=== PATIENT | male | born 1960 | race Two or more races ===

== ENCOUNTER 2023-07-11 11:42 | Inpatient (IN) | payer MEDICAID, OTHER, SELFPAY ==
--- NOTE | ~2023-07-11 | MR_ITS ---
EXAMINATION: MR FOOT WITHOUT AND WITH CONTRAST, LEFT CLINICAL INFORMATION: Great toe wound, concern for osteomyelitis. COMPARISON: X-ray 07/11/2023. TECHNIQUE: MRI of the left foot was performed before and after the intravenous administration of 9 mL Gadavist on a high-field scanner. FINDINGS: Soft tissue wound along the plantar/medial aspect of the 1st distal phalanx. There is edema/cellulitis in the soft tissues. No organized fluid collection or abscess is seen. There is abnormal bright T2, low T1 signal and enhancement in the 1st distal phalanx, consistent with osteomyelitis. No significant 1st IP joint effusion. Mild 1st MTP arthritis, small effusion. No additional areas of osteomyelitis are seen. Visualized tendons intact. No appreciable tenosynovitis. Increased T2 signal in the intrinsic muscles of the foot, commonly seen with denervation changes. Visualized plantar aponeurosis is intact. MR/MR foot LT wo/w con IMPRESSION: Soft tissue wound along the plantar/medial aspect of the 1st distal phalanx. There is edema/cellulitis in the soft tissues. No abscess is seen. Abnormal findings in the 1st distal phalanx consistent with osteomyelitis. Increased T2 signal in the intrinsic muscles of the foot, commonly seen with denervation changes. The report will be called to the ordering clinician by a [facility] Physician Mechanical Integrity Specialist.
--- NOTE | ~2023-07-11 | XR_ITS ---
EXAMINATION: XR FOOT, LEFT CLINICAL INFORMATION: Great toe wound, concern for osteomyelitis COMPARISON: None available. TECHNIQUE: AP, lateral, and oblique views of the left foot. FINDINGS: There is erosion of distal phalanx with cortical destruction and some surrounding soft tissue swelling. The findings are highly suspicious for osteomyelitis. No evidence of significant arthritic disease. No other abnormality is seen. XR/XR foot LT min 3V IMPRESSION: Findings highly suspicious for osteomyelitis distal phalanx of the great toe.
--- NOTE | ~2023-07-11 | US_ITS ---
EXAMINATION: NONINVASIVE ASSESSMENT OF THE ARTERIES OF THE LEFT LOWER EXTREMITY Barry Crouhc MD CLINICAL INFORMATION: Nonhealing ulcer left great toe TECHNIQUE: Bilateral lower extremity duplex ultrasound was performed with velocity measurements and waveform analysis in the common femoral arteries, profunda femoris arteries, proximal mid and distal superficial femoral arteries, popliteal arteries and tibial vessels. This study was performed only at rest. COMPARISON: None FINDINGS: Velocities in cm/sec and phasicity as well as the presence of plaque are reported below. LEFT LEG: Mild plaque is present. Triphasic flow is noted throughout the left lower extremity. Common Femoral: 120 Profunda Femoris: 63 Proximal SFA: 94 Mid SFA: 98 Distal SFA: 66 Popliteal: 108 Posterior tibial: 167 Peroneal artery: 74 US/US arterial duplex LE LT IMPRESSION: There is no evidence of any hemodynamically significant lower extremity arterial disease by waveform or duplex Doppler criteria at rest.
--- NOTE | 2023-07-11 11:46 | ED.EXTPRO ---
HPI - Extremity Problem General Stated complaint: Sores L foot Related Data Allergies Allergy/AdvReac Type Severity Reaction Status Date / Time No Known Allergies Allergy Verified 07/11/23 11:51 Course Course Course Narrative: This is a Rapid Medical Examination (RME) performed by Alhaji Ferrell PA-C in triage. Full HPI, ROS, assessment and treatment plan per primary provider in the Main ED. 63-year-old male, Kinyarwanda speaking with history of poorly-controlled diabetes is sent to the ER from [facility] for evaluation of possible left foot osteomyelitis. He presents w/ painless left great toe ulcer for the last 10 days. On exam left foot and ankle are swollen w/ large left great toe ulcer on the plantar aspect, foul smelling without obvious drainage. Plan: XR foot, labs, cultures Discharge Plan Discharge Print Language: Kinyarwanda
[2023-07-11 11:48] VITALS: BP 163/83; PULSE 94; RESP 18; TEMP 36.6; O2SAT 97; BMI 31.6
[2023-07-11 12:14] LABS: MANUAL DIFF FLAG NO
[2023-07-11 12:19] LABS: Basophils Absolute Auto 0.1 X10*3/uL (0.0-0.2); Basophils Percent Auto 0.5 % (0-2); Eosinophils Absolute Auto 0.1 X10*3/uL (0.0-0.4); Eosinophils Percent Auto 0.7 % (0-4); Hematocrit 37.3 % (42.0-52.0); Hemoglobin 12.6 g/dl (14.0-18.0); Imm Gran Abs Auto 0.04 X10*3/uL (0.00-0.03); Imm Gran Pct Auto 0.4 % (0.0-0.4); Lymphocytes Absolute Auto 1.5 X10*3/uL (1.2-4.9); Lymphocytes Percent Auto 16.3 % (20-40); Mean Corpuscular HGB Conc 33.8 g/dl (31.0-36.0); Mean Corpuscular Hemoglobin 29.8 pg (27.0-33.0); Mean Corpuscular Volume 88.2 fL (80.0-98.0); Mean Platelet Volume 9.8 fL (9.4-12.4); Monocytes Absolute Auto 0.7 X10*3/uL (0.1-1.2); Monocytes Percent Auto 7.2 % (2-11); Neutrophils Absolute Auto 6.9 x10*3/uL (2.0-8.3); Neutrophils Percent Auto 74.9 % (45-73); Platelet Count 300 X10*3/uL (160-400); Red Blood Count 4.23 X10*6/uL (4.60-5.80); Red Cell Distribution Width 11.9 % (11.0-16.0); White Blood Count 9.2 X10*3/uL (4.8-10.8)
[2023-07-11 12:37] LABS: Lactic Acid 2.1 mmol/L (0.5-2.0)
[2023-07-11 12:38] LABS: B Type Natriuretic Peptide 63 pg/mL (<100)
[2023-07-11 12:40] LABS: Alanine Aminotransferase 14 U/L (0-40); Albumin Level 4.4 g/dL (3.5-5.0); Alkaline Phosphatase 99 U/L (39-117); Anion Gap 22 (12-20); Aspartate Amino Transferase 16 U/L (5-37); Bilirubin Direct 0.2 mg/dL (0.0-0.5); Bilirubin Total 0.6 mg/dL (0.0-1.0); Blood Urea Nitrogen 21 mg/dL (9-16); C Reactive Protein 4.19 mg/dL (< or = 0.50); Calcium 9.8 mg/dL (8.4-10.2); Carbon Dioxide 19 mmol/L (22-29); Chloride 102 mmol/L (96-108); Creatinine Clr Calc Pharmacy 88.7; Estimated Glomerular Filt Rate > 60; Glucose Random 324 mg/dL (60-115); Magnesium 1.8 mg/dL (1.6-2.6); Potassium 4.6 mmol/L (3.3-5.1); Sodium 138 mmol/L (135-145); Total Protein 7.9 g/dL (6.5-8.0)
[2023-07-11 13:00] LABS: Erythrocyte Sedimentation Rate 51 MM/HR (0-15)
--- NOTE | 2023-07-11 13:33 | ED.WOUNDLAC ---
HPI - Wound/Laceration General Chief Complaint: Wound/Laceration Stated Complaint: Sores L foot Time Seen by Provider: 07/11/23 13:29 Source: patient Mode of arrival: ambulatory Limitations: no limitations History of Present Illness HPI narrative: This is 62 years old diabetic patient sent from evaluation from the clinic because diabetic foot infection in the left, especially in the left great toe, he denies any fever chills vomiting. Symptom been ongoing for about 9 days Onset (ago): day(s) (9) Extremity Location: left: foot Place: home Related Data Allergies Allergy/AdvReac Type Severity Reaction Status Date / Time No Known Allergies Allergy Verified 07/11/23 11:51 Review of Systems ENT: Reports system reviewed and no additional complaints, except as documented Cardiovascular: Cardiovascular: Reports no additional cardiovascular complaints Respiratory: Respiratory: Reports no additional respiratory complaints [facility] Past Medical History [facility] Narrative: diabetes Social History Social History Alcohol intake: never Smoked in Last 30 Days: No Use of substances other than those prescribed or required for medical reasons: No Advance Directives: No Advance Directives Information Provided: Yes Physical Exam Vital Signs: Vital Signs: Last Vital Signs Temp 98 F 07/11/23 11:48 Pulse 94 07/11/23 11:48 Resp 18 07/11/23 11:48 BP 163/83 H 07/11/23 11:48 Pulse Ox 97 07/11/23 11:48 BMI result Body Mass Index 31.6 Const: General: cooperative and comfortable Nutritional Appearance: well nourished Orientation/consciousness: patient oriented x3 Limitations: no limitations HEENT: Head: Yes normal to inspection General nose exam: Normal external nose present Face and sinus: Yes normal facial exam Teeth and gingiva: dentition normal Throat: Yes posterior oropharynx normal Neck: Neck: Yes normal visual inspection Chest: Chest palpation & inspection: normal inspection of the chest Resp: Effort & Inspection: normal respiratory effort and able to speak in complete sentences Auscultation: clear to auscultation bilaterally Cardio: Jugular venous distension: no JVD Rate: regular rate Rhythm: regular rhythm GI: Inspection: Yes normal to inspection Palpation (GI): Soft to palpation, not firm, nontender and no guarding Auscultation: normal bowel sounds Neuro: General: patient oriented x3 Extrem: Other: Examination left great toe showed necrotic area in the tip of the toe see pictures Course Reevaluation(s) Reevaluation #1: Spoke with the son as well Time: 14:01 Medical Decision Making Medical Decision Making [facility] Narrative: Patient presented with diabetic foot infection we gave IV antibiotic will do x-ray labs and reassess Differential Diagnosis Differential Diagnoses: The differential diagnosis associated with the presentation includes Cellulitis/osteomyelitis Admission/Observation Consideration of admission/observation: Escalation of care including admission/observation considered Consult Healthcare Provider Management of the patient was discussed with: Hospitalist Lab Data [facility] Lab Attestation statement: I reviewed the patient's lab results. 07/11/23 12:06 07/11/23 12:06 Labs: Lab Results 07/11/23 Range/Units 12:06 WBC 9.2 (4.8-10.8) X10*3/uL RBC 4.23 L (4.60-5.80) X10*6/uL Hgb 12.6 L (14.0-18.0) g/dl Hct 37.3 L (42.0-52.0) % MCV 88.2 (80.0-98.0) fL MCH 29.8 (27.0-33.0) pg MCHC 33.8 (31.0-36.0) g/dl RDW 11.9 (11.0-16.0) % Plt Count 300 (160-400) X10*3/uL MPV 9.8 (9.4-12.4) fL Immature Gran % (Auto) 0.4 (0.0-0.4) % Neut % (Auto) 74.9 H (45-73) % Lymph % (Auto) 16.3 L (20-40) % [place] % (Auto) 7.2 (2-11) % Eos % (Auto) 0.7 (0-4) % Baso % (Auto) 0.5 (0-2) % Lymph # (Auto) 1.5 (1.2-4.9) X10*3/uL [place] # (Auto) 0.7 (0.1-1.2) X10*3/uL Eos # (Auto) 0.1 (0.0-0.4) X10*3/uL Baso # (Auto) 0.1 (0.0-0.2) X10*3/uL Abs Immat Gran (auto) 0.04 H (0.00-0.03) X10*3/uL Absolute Neuts (auto) 6.9 (2.0-8.3) x10*3/uL Absolute Nucleated RBC 0.000 (0.0-0.012) X10*3/uL Nucleated RBC % (auto) 0.0 (0.0-0.2) /100WBC ESR 51 H (0-15) MM/HR Sodium 138 (135-145) mmol/L Potassium 4.6 (3.3-5.1) mmol/L Chloride 102 (96-108) mmol/L Carbon Dioxide 19 L (22-29) mmol/L Anion Gap 22 H (12-20) BUN 21 H (9-16) mg/dL Creatinine 0.89 (0.5-1.4) mg/dL Estim Creat Clear Calc 88.7 Estimated GFR > 60 Random Glucose 324 H (60-115) mg/dL Lactic Acid 2.1 H* (0.5-2.0) mmol/L Calcium 9.8 (8.4-10.2) mg/dL Magnesium 1.8 (1.6-2.6) mg/dL Total Bilirubin 0.6 (0.0-1.0) mg/dL Direct Bilirubin 0.2 (0.0-0.5) mg/dL AST 16 (5-37) U/L ALT 14 (0-40) U/L Alkaline Phosphatase 99 (39-117) U/L C-Reactive Protein 4.19 H (< or = 0.50) mg/dL B-Natriuretic Peptide 63 (<100) pg/mL Total Protein 7.9 (6.5-8.0) g/dL Albumin 4.4 (3.5-5.0) g/dL Independent Interpretation I performed an independent interpretation of an: Plain X-Ray Interpretation: I personally reviewed the x-ray interpreted as a possible osteo Radiology Impression Discussion of test interpretation with radiology: I have reviewed the radiologist's reading. Radiologist Impression: CLINICAL INFORMATION: Great toe wound, concern for osteomyelitis COMPARISON: None available. TECHNIQUE: AP, lateral, and oblique views of the left foot. FINDINGS: There is erosion of distal phalanx with cortical destruction and some surrounding soft tissue swelling. The findings are highly suspicious for osteomyelitis. No evidence of significant arthritic disease. No other abnormality is seen. XR/XR foot LT min 3V IMPRESSION: Findings highly suspicious for osteomyelitis distal phalanx of the great toe. Dictated By: S Independent Historian Son Prescription Management I considered prescription management with: Antibiotic Chronic Conditions Patient?s care impacted by: Diabetes Discharge Plan Discharge Clinical Impression: Diabetic infection of left foot, Osteomyelitis of great toe of left foot Patient Disposition: Admitted As Inpatient Print Language: Chadian
[2023-07-11] MEDS: 0.9 % Sodium Chloride 1,000 ML 999 ML IVCONT (14:06)
[2023-07-11] MEDS: Piperacillin Sodium/Tazobactam 4.5 GM in 0.9 % Sodium Chloride 100 ML IV ×2 (14:06→21:14)
[2023-07-11 14:08] VITALS: BP 170/83; PULSE 93; RESP 18; TEMP 36.9; O2SAT 99
[2023-07-11 14:14] LABS: Reflex Lactate? Lactic Acid Added
--- NOTE | 2023-07-11 15:01 | P.HPHOSP_ITS ---
History of Present Illness Date of Service: 07/11/23 Attending physician on admission: [facility] Chief Complaint: L foot pain 63-year-old male with history of lip-[id number] type 2 diabetes, anxiety, chronic tremor who has poor outpatient follow-up presents to the ED accompanied by his son, del, who also assists with history, for evaluation of left foot pain and possible infection of the left great toe. The patient is reporting pain in the left foot ongoing for 2 weeks but has not been checking his feet. His sudden noticed a black discoloration and faint erythema of the left great toe 2 days ago. Denies any fevers, chills, purulent drainage. He denies any history of similar symptoms. On arrival, vital stable though hypertensive to 170/83 on admission. Denies known history of hypertension but again has poor outpatient follow-up. He has no leukocytosis. There is a normocytic anemia with H/H 12.6/37.3%. Creatinine 0.89, BUN 21. Electrolyte levels normal except for CO2 19. Glucose 324 with A1c of 11.3%. Lactic acid 2.1. Hepatic function within normal limits. CRP 4.19, ESR 51. Urinalysis unremarkable. X-ray of the right foot with findings highly suspicious for osteomyelitis of the distal phalanx of the great toe. In the ED, given 1 L IV NS and IV Zosyn. Patient will be admitted for further management of osteomyelitis of the left great toe. Denies any history of cigarette smoking. No alcohol or drug use. Review of Systems 2 Review of Systems: General: No fevers, malaise, unintentional weight loss HEENT: No blurred vision, diplopia. No sore throat, nasal congestion, rhinorrhea, sinus pain, ear pain Cardiovascular: No chest pain, palpitations, or leg edema Respiratory: No shortness of breath, wheezing, cough GI: No abdominal pain, nausea, vomiting, diarrhea, constipation, melena, hematochezia : No dysuria, hematuria, increased urinary frequency, decreased urinary output MSK: No myalgia. +Left foot pain Neuro: No headaches, weakness, paresthesias Skin: No rashes. +nonhealing ulcer L great toe [facility] Medical History (Updated 07/11/23 @ 15:42 by RAQUEL Norman) Anxiety HTN (hypertension) Type 2 diabetes mellitus Social History Alcohol intake: never Smoked in Last 30 Days: No Use of substances other than those prescribed or required for medical reasons: No Advance Directives: No Advance Directives Information Provided: Yes Meds Allergies Allergy/AdvReac Type Severity Reaction Status Date / Time No Known Allergies Allergy Verified 07/11/23 11:51 Active Medications: Current Medications Acetaminophen (Acetaminophen 325 Mg Tablet) 650 mg PO Q6H PRN PRN Reason: Fever Acetaminophen (Acetaminophen 325 Mg Tablet) 650 mg PO Q6H PRN PRN Reason: Pain, Mild (Pain Scale 1-3) Acetaminophen (Acetaminophen 325 Mg Tablet) 650 mg PO Q6H PRN PRN Reason: Headache Calcium Carbonate (Calcium Carbonate 750 Mg Tab.Chew) 750 mg PO Q6H PRN PRN Reason: Heartburn Heparin Sodium (Porcine) (Heparin Sodium,Porcine 5,000 Unit/Ml Vial) 5,000 unit SUBCUT Q12H MARLO Vancomycin HCl (Vancomycin/Ns) 2,000 mg in 500 mls @ 250 mls/hr IV ONCE ONE Stop: 07/11/23 15:38 Piperacillin Sod/Tazobactam (Sod 4.5 gm/ Sodium Chloride) 100 mls @ 200 mls/hr IV Q6H MARLO Magnesium Hydroxide (Milk Of Magnesia 30 Ml Oral.Susp) 30 ml PO DAILY PRN PRN Reason: Constipation Melatonin (Melatonin 3 Mg Tablet) 6 mg PO BEDTIME PRN PRN Reason: Insomnia Pharmacy Consult (Consult Rx Vancomycin Dosing) 1 each MISCELLANE DAILY PRN PRN Reason: Consult order Polyethylene Glycol (Polyethylene Glycol 3350 17 Gm Powd.Pack) 17 gm PO DAILY PRN PRN Reason: Constipation Sodium Chloride (0.9 % Sodium Chloride Flush 3 Ml Syringe) 3 ml IVFLUSH QSHIFT MARLO Physical Exam 2 Vital Signs and Narrative: Vital Signs: Last Vital Signs Temp 98.4 F 07/11/23 14:08 Pulse 93 07/11/23 14:08 Resp 18 07/11/23 14:08 BP 170/83 H 07/11/23 14:08 Pulse Ox 99 07/11/23 14:08 O2 Del Method Room Air 07/11/23 14:08 BMI result Body Mass Index 31.6 Constitutional - Awake and Alert, No apparent distress Eyes - PERRLA, EOMI Cardiovascular - S1S2, RRR, 2+ ble edema Respiratory - Normal lung expansion, Normal respiratory effort, No respiratory distress, CTA bilaterally Gastrointestinal - NT / ND; +BS; No rebound or guarding Extremities - no calf tenderness bilaterally, no swelling Skin - Warm/Dry. Nonhealing stage 2 ulcer plantar surface L great toe with faint erythema of the L great toe Neurological - Alert & oriented x3, bilateral ahnd tremor Psychological - Appropriate affect Results Labs 07/11/23 12:06 07/11/23 12:06 Labs: Laboratory Results - last 24 hr 07/11/23 12:06 MCV 88.2 MCH 29.8 MCHC 33.8 RDW 11.9 Plt Count 300 MPV 9.8 Immature Gran % (Auto) 0.4 Neut % (Auto) 74.9 H Lymph % (Auto) 16.3 L [place] % (Auto) 7.2 Eos % (Auto) 0.7 Baso % (Auto) 0.5 Lymph # (Auto) 1.5 [place] # (Auto) 0.7 Eos # (Auto) 0.1 Baso # (Auto) 0.1 Abs Immat Gran (auto) 0.04 H Absolute Neuts (auto) 6.9 Absolute Nucleated RBC 0.000 Nucleated RBC % (auto) 0.0 ESR 51 H Anion Gap 22 H Estim Creat Clear Calc 88.7 Estimated GFR > 60 Random Glucose 324 H Lactic Acid 2.1 H* Calcium 9.8 Magnesium 1.8 Total Bilirubin 0.6 Direct Bilirubin 0.2 AST 16 ALT 14 Alkaline Phosphatase 99 C-Reactive Protein 4.19 H B-Natriuretic Peptide 63 Total Protein 7.9 Albumin 4.4 Imaging Radiologist's Impressions: Impressions Foot X-Ray 07/11/23 12:12 IMPRESSION: Findings highly suspicious for osteomyelitis distal phalanx of the great toe. Assessment and Plan (1) Osteomyelitis of great toe of left foot: Status: Acute (2) Diabetic infection of left foot: Status: Acute (3) Uncontrolled type 2 diabetes mellitus with hyperglycemia: Status: Acute Plan 63-year-old male with history of jei-[id number] type 2 diabetes, anxiety, chronic tremor who has poor outpatient follow-up admitted for further management of acute osteomyelitis of the left great toe # acute osteomyelitis of the left great toe with nonhealing stage II ulcer of the left great toe related to uncontrolled type 2 diabetes -x-ray of the left foot shows high suspicion for osteomyelitis. ESR 50, CRP 4.19. No leukocytosis, fevers, no sepsis -MRI ordered for further evaluation of osteomyelitis -arterial Doppler left lower extremity ordered -IV vancomycin and Zosyn (initiated 07/10) -refuge worker consult -ID consult -will likely need pt eval -follow CBC, cultures # uncontrolled ake-ncbxztp-cshbsxjqv type 2 diabetes with hyperglycemia -hemoglobin A1c 11.3% -initiate 18 units Lantus nightly -POC glucose, diabetic diet, Admelog on sliding scale # newly diagnosed hypertension -add amlodipine 5 mg daily #Tremor, shuffling gait -concern for parkinsons, outpt follow up with pcp/neuro DVT prophylaxis- heparin full code Patient requires inpatient stay at least 2 midnights for management of osteo myelitis with nonhealing stage II ulcer of the left great toe with infection requiring IV antibiotics, close monitoring of blood cultures as patient will likely require long-term antibiotics, as well as expert consultation Quality Stroke Does the patient have a stroke diagnosis?: No VTE Prior VTE?: No VTE Risk Level:: Medical - moderate - high VTE Device Contraindication: Treatment Not Indicated VTE Drug Contraindication: N/A - Med Ordered
[2023-07-11] MEDS: vancomycin/NS 2,000 MG/500 ML PLAST..BAG 250 MG IV (15:08)
[2023-07-11 15:12] LABS: Appearance Urine Clear; Color Urine Yellow; Glucose Urine UA >=1000 mg/dL (Negative); Leukocyte Esterase Urine Negative (Negative); Nitrite Urine Negative (Negative); PH 5.5 (5.0-9.0); Specific Gravity - Urine 1.025 (1.005-1.025); UMIC TRIGGER UACC YES; Urine Blood Negative (Negative); Urine Ketones 15 mg/dL (Negative); Urine Protein 100 (2+) mg/dL (Neg-Trace)
[2023-07-11 15:14] LABS: Bacteria Urine None Seen (None Seen); Hyaline Casts Urine 0-2 /LPF (0-2); RBC Urine 0-2 /HPF (0-2); Squamous Epithelial Cell Urine 0-2 /HPF (0-2); WBC Urine 0-5 /HPF (0-5)
[2023-07-11 15:24] LABS: Estimated Average Glucose 278 mg/dL; Hemoglobin A1c % 11.3 % (<6.0)
--- NOTE | 2023-07-11 16:00 | PHA.PROG ---
Admission Date/Time: July 11, 2023 15:01 Indication: bone and joint Weight in k.904 kg Adjusted body weight in Kg: Williamson body weight in Kg: Obesity Dosing Indication % IBW: Serum Creatinine - Last 168 Hours 07/11/23 12:06 Creatinine 0.89 Estimated CrCl and GFR - Last 168 Hours 07/11/23 12:06 Estim Creat Clear Calc 88.7 Estimated GFR > 60 Vancomycin Loading Dose: 2000mg x 1 Current Vancomycin Dosing Regimen: 1000mg Q12H Vancomycin Monitoring using AUC goal of 400 - 600 range with trough as surrogate marker: 484 mg/L Date and Time for next Vancomycin Level to be drawn: 07/11 @1300 Pharmacist Comments on Vancomycin Plan: Due to timing of medication level will be drawn after two doses; predicted trough of 15.4mg/L Vancomycin dosing will take advantage of [employer] as a clinical decision support tool that uses Bayesian modeling to calculate individual patient's pharmacokinetic parameters and forecast the patient's drug concentration time course with the target goal AUC 24 range of 400 - 600 mg/L/hr.
[2023-07-11 16:44] LABS: ~Lactic Acid-LAB USE ONLY 1.7 mmol/L (0.5-2.0)
[2023-07-11 17:50] VITALS: PULSE 79; RESP 179; TEMP 37.1; O2SAT 97
[2023-07-11 17:55] LABS: Glucose, Whole Blood 228 mg/dL (60-115)
[2023-07-11] MEDS: Insulin Lispro 100 UNIT/ML 3 ML VIAL SUBCUT ×2 (18:00→21:15)
--- NOTE | 2023-07-11 18:14 | PHA.MEDREC ---
Pharmacy Consult ? Medication Reconciliation Pharmacy has completed the medication reconciliation. Spoke to patient via industrial truck operator and confirmed medication list. Patient was taking trulicity but hasn't had it in a month.
[2023-07-11 19:50] VITALS: BP 151/76; PULSE 82; RESP 15; TEMP 37.1; O2SAT 98
[2023-07-11 20:14] VITALS: BMI 31.0
[2023-07-11 20:16] VITALS: BP 168/83; PULSE 83; RESP 16; TEMP 36.2; O2SAT 99
[2023-07-11 20:22] LABS: Glucose, Whole Blood 246 mg/dL (60-115)
[2023-07-11] MEDS: Insulin Glargine,Hum.rec.anlog 100 UNIT/ML 10 ML VIAL 18 UNIT SUBCUT (21:14)
[2023-07-11] MEDS: 0.9 % Sodium Chloride Flush 3 ML SYRINGE IVFLUSH (21:15)
[2023-07-12 02:58] VITALS: BP 166/81; PULSE 73; RESP 16; TEMP 36.4; O2SAT 98
[2023-07-12] MEDS: Piperacillin Sodium/Tazobactam 4.5 GM in 0.9 % Sodium Chloride 100 ML IV ×4 (02:59→20:39)
[2023-07-12] MEDS: Heparin Sodium,Porcine 5,000 UNIT/ML VIAL 5000 UNIT SUBCUT ×2 (02:59→14:26)
[2023-07-12] MEDS: vancomycin HCL 1,000 MG in 0.9 % Sodium Chloride 250 ML 270 MG IV ×2 (03:45→14:24)
[2023-07-12 05:45] LABS: MANUAL DIFF FLAG NO
[2023-07-12 05:53] LABS: Basophils Percent Auto 0.6 % (0-2); Eosinophils Absolute Auto 0.2 X10*3/uL (0.0-0.4); Eosinophils Percent Auto 2.4 % (0-4); Hematocrit 33.2 % (42.0-52.0); Hemoglobin 11.4 g/dl (14.0-18.0); Imm Gran Abs Auto 0.02 X10*3/uL (0.00-0.03); Imm Gran Pct Auto 0.3 % (0.0-0.4); Lymphocytes Absolute Auto 1.9 X10*3/uL (1.2-4.9); Lymphocytes Percent Auto 27.7 % (20-40); Mean Corpuscular HGB Conc 34.3 g/dl (31.0-36.0); Mean Corpuscular Volume 87.4 fL (80.0-98.0); Mean Platelet Volume 9.5 fL (9.4-12.4); Monocytes Absolute Auto 0.6 X10*3/uL (0.1-1.2); Monocytes Percent Auto 8.2 % (2-11); Neutrophils Absolute Auto 4.1 x10*3/uL (2.0-8.3); Neutrophils Percent Auto 60.8 % (45-73); Platelet Count 291 X10*3/uL (160-400); White Blood Count 6.7 X10*3/uL (4.8-10.8)
[2023-07-12 06:04] LABS: Anion Gap 15 (12-20); Blood Urea Nitrogen 12 mg/dL (9-16); Calcium 9.2 mg/dL (8.4-10.2); Carbon Dioxide 24 mmol/L (22-29); Chloride 107 mmol/L (96-108); Creatinine Clr Calc Pharmacy 104.2; Estimated Glomerular Filt Rate > 60; Glucose Random 149 mg/dL (60-115); Sodium 142 mmol/L (135-145)
[2023-07-12 07:29] LABS: Glucose, Whole Blood 157 mg/dL (60-115)
[2023-07-12 07:31] VITALS: BP 155/77; PULSE 65; RESP 12; TEMP 36.6
[2023-07-12] MEDS: Multivitamin TABLET 1 TAB PO (08:05)
[2023-07-12] MEDS: amLODIPine Besylate 5 MG TABLET PO (08:05)
[2023-07-12] MEDS: Insulin Lispro 100 UNIT/ML 3 ML VIAL SUBCUT ×4 (08:06→20:43)
--- NOTE | 2023-07-12 09:40 | MHC.CM.PN ---
pt lives with son,is independent had no servies has a ride home will not need servies when dcd
[2023-07-12 11:36] LABS: Glucose, Whole Blood 223 mg/dL (60-115)
--- NOTE | 2023-07-12 13:22 | P.PNIM_ITS ---
Subjective Subjective Date of Service: 07/12/23 Interval History: left toe ulcer Review of Systems foot seems similar no erythema or fevers Physical Exam 2 Vital Signs: Vital Signs: Last Vital Signs Temp 98 F 07/12/23 07:31 Pulse 65 07/12/23 07:31 Resp 12 07/12/23 07:31 BP 155/77 H 07/12/23 07:31 Pulse Ox 98 07/12/23 02:58 O2 Del Method Room Air 07/11/23 20:16 BMI result Body Mass Index 31.0 Appearance: Alert.? Oriented X3.? cvs: [id number], [id number] . res: clear to auscultation ,no rhonchii or wheezing abd: no rebound or guarding ,nt, bs present. ext pulses present , no cyanosis. ulcer plantar surface L great toe with faint erythema of the L great toe neuro: axo3 , nonfocal. Objective Data Active Medications Acetaminophen (Acetaminophen 325 Mg Tablet) 650 mg PO Q6H PRN PRN Reason: Fever Amlodipine Besylate (Amlodipine Besylate 5 Mg Tablet) 5 mg PO DAILY [facility]; Protocol Last Admin: 07/12/23 08:05 Dose: 5 mg Documented By: MILTON Calcium Carbonate (Calcium Carbonate 750 Mg Tab.Chew) 750 mg PO Q6H PRN PRN Reason: Heartburn Glucose (Glucose Gel 15 Gm Gel..Gram.) 15 gm PO Q15M PRN; Protocol PRN Reason: per Hypoglycemia Standing Ord. Heparin Sodium (Porcine) (Heparin Sodium,Porcine 5,000 Unit/Ml Vial) 5,000 unit SUBCUT Q12H [facility] Last Admin: 07/12/23 02:59 Dose: 5,000 unit Documented By: JACQUELINE Piperacillin Sod/Tazobactam (Sod 4.5 gm/ Sodium Chloride) 100 mls @ 200 mls/hr IV Q6H [facility] Last Infusion: 07/12/23 08:40 Dose: Infused Documented By: MILTON Dextrose (D10) 250 mls @ 750 mls/hr IV Q15M PRN; Protocol PRN Reason: per Hypoglycemia Standing Ord. Vancomycin HCl 1,000 mg/ (Sodium Chloride) 270 mls @ 270 mls/hr IV Q12H [facility] Last Infusion: 07/12/23 05:00 Dose: Infused Documented By: JACQUELINE Insulin Glargine (Insulin Glargine,Hum.Rec.Anlog 100 Unit/Ml 10 Ml Vial) 18 unit SUBCUT BEDTIME [facility] Last Admin: 07/11/23 21:14 Dose: 18 unit Documented By: JACQUELINE Insulin Human Lispro (Insulin Lispro 100 Unit/Ml 3 Ml Vial) 0 unit SUBCUT QIDACHS [facility]; Protocol Last Admin: 07/12/23 11:58 Dose: 4 unit Documented By: MILTON Magnesium Hydroxide (Milk Of Magnesia 30 Ml Oral.Susp) 30 ml PO DAILY PRN PRN Reason: Constipation Melatonin (Melatonin 3 Mg Tablet) 6 mg PO BEDTIME PRN PRN Reason: Insomnia Multivitamins/Vitamin C (Multivitamin Tablet) 1 tab PO DAILY [facility] Last Admin: 07/12/23 08:05 Dose: 1 tab Documented By: MILTON Pharmacy Consult (Consult Rx Vancomycin Dosing) 1 each MISCELLANE DAILY PRN PRN Reason: Consult order Polyethylene Glycol (Polyethylene Glycol 3350 17 Gm Powd.Pack) 17 gm PO DAILY PRN PRN Reason: Constipation Sodium Chloride (0.9 % Sodium Chloride Flush 3 Ml Syringe) 3 ml IVFLUSH QSHIFT [facility] Last Admin: 07/12/23 07:26 Dose: Not Given Documented By: MILTON Non-Admin Reason: Previously Administered Labs 07/12/23 05:30 07/12/23 05:30 Labs: Laboratory Results - last 24 hr 07/11/23 07/11/23 07/11/23 12:06 15:03 16:30 MCV MCH MCHC RDW Plt Count MPV Immature Gran % (Auto) Neut % (Auto) Lymph % (Auto) Oliver % (Auto) Eos % (Auto) Baso % (Auto) Lymph # (Auto) Oliver # (Auto) Eos # (Auto) Baso # (Auto) Abs Immat Gran (auto) Absolute Neuts (auto) Absolute Nucleated RBC Nucleated RBC % (auto) Anion Gap Estim Creat Clear Calc Estimated GFR POC Glucose Random Glucose Estimat Average Glucose 278 Hemoglobin A1c % 11.3 H Lactic Acid F/U @ 2Hr 1.7 Calcium Urine Color Yellow Urine Appearance Clear Urine pH 5.5 Ur Specific Baker 1.025 Urine Protein 100 (2+) H Urine Glucose (UA) >=1000 H Urine Ketones 15 Urine Blood Negative Urine Nitrite Negative Ur Leukocyte Esterase Negative Urine RBC 0-2 Urine WBC 0-5 Ur Squamous Epith Cells 0-2 Urine Bacteria None Seen Hyaline Casts 0-2 07/11/23 07/11/23 07/12/23 17:48 20:18 05:30 MCV 87.4 MCH 30.0 MCHC 34.3 RDW 12.0 Plt Count 291 MPV 9.5 Immature Gran % (Auto) 0.3 Neut % (Auto) 60.8 Lymph % (Auto) 27.7 Oliver % (Auto) 8.2 Eos % (Auto) 2.4 Baso % (Auto) 0.6 Lymph # (Auto) 1.9 Oliver # (Auto) 0.6 Eos # (Auto) 0.2 Baso # (Auto) 0.0 Abs Immat Gran (auto) 0.02 Absolute Neuts (auto) 4.1 Absolute Nucleated RBC 0.000 Nucleated RBC % (auto) 0.0 Anion Gap 15 Estim Creat Clear Calc 104.2 Estimated GFR > 60 POC Glucose 228 H 246 H Random Glucose 149 H Estimat Average Glucose Hemoglobin A1c % Lactic Acid F/U @ 2Hr Calcium 9.2 D Urine Color Urine Appearance Urine pH Ur Specific Baker Urine Protein Urine Glucose (UA) Urine Ketones Urine Blood Urine Nitrite Ur Leukocyte Esterase Urine RBC Urine WBC Ur Squamous Epith Cells Urine Bacteria Hyaline Casts 07/12/23 07/12/23 07:20 11:29 MCV MCH MCHC RDW Plt Count MPV Immature Gran % (Auto) Neut % (Auto) Lymph % (Auto) Oliver % (Auto) Eos % (Auto) Baso % (Auto) Lymph # (Auto) Oliver # (Auto) Eos # (Auto) Baso # (Auto) Abs Immat Gran (auto) Absolute Neuts (auto) Absolute Nucleated RBC Nucleated RBC % (auto) Anion Gap Estim Creat Clear Calc Estimated GFR POC Glucose 157 H 223 H Random Glucose Estimat Average Glucose Hemoglobin A1c % Lactic Acid F/U @ 2Hr Calcium Urine Color Urine Appearance Urine pH Ur Specific Baker Urine Protein Urine Glucose (UA) Urine Ketones Urine Blood Urine Nitrite Ur Leukocyte Esterase Urine RBC Urine WBC Ur Squamous Epith Cells Urine Bacteria Hyaline Casts Assessment and Plan (1) Uncontrolled type 2 diabetes mellitus with hyperglycemia: Status: Acute (2) Osteomyelitis of great toe of left foot: Status: Acute Assessment and Plan: 63-year-old male with history of [id number] type 2 diabetes, anxiety, chronic tremor who has poor outpatient follow-up admitted for further management of acute osteomyelitis of the left great toe acute osteomyelitis of the left great toe with nonhealing stage II ulcer of the left great toe related to uncontrolled type 2 diabetes x-ray of the left foot shows high suspicion for osteomyelitis. ESR 50, CRP 4.19.,MRI ordered for further evaluation of osteomyelitis arterial Doppler left lower extremity -no evidence of any hemodynamically significant lower extremity arterial disease. 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,pt eval follow CBC, cultures uncontrolled [id number] type 2 diabetes with hyperglycemia-hemoglobin A1c 11.3% adjusted 20 units Lantus nightly POC glucose, diabetic diet, humalog on sliding scale hypertension continue amlodipine 5 mg daily Tremor, shuffling gait -concern for parkinsons, outpt follow up with pcp/neuro DVT prophylaxis- heparin full code Patient requires inpatient stay for management of osteo myelitis with nonhealing stage II ulcer of the left great toe with infection requiring IV antibiotics, close monitoring of blood cultures as patient will likely require long-term antibiotics, as well as expert consultation Quality Stroke Does the patient have a stroke diagnosis?: No VTE Prior VTE?: No VTE Risk Level:: Medical - moderate - high VTE Device Contraindication: Treatment Not Indicated VTE Drug Contraindication: N/A - Med Ordered
[2023-07-12] MEDS: gadobutroL 10 ML VIAL IVPUSH (13:26)
[2023-07-12 15:25] VITALS: BP 157/74; PULSE 81; RESP 15; TEMP 36; O2SAT 97
[2023-07-12 15:45] LABS: Vancomycin Random 9.9 mcg/mL (15-20)
[2023-07-12 16:12] LABS: Glucose, Whole Blood 172 mg/dL (60-115)
[2023-07-12] MEDS: vancomycin HCL 500 MG in 0.9 % Sodium Chloride 100 ML 110 MG IV (16:32)
[2023-07-12 19:23] VITALS: BP 138/81; PULSE 96; RESP 16; TEMP 36.2; O2SAT 98
[2023-07-12 20:19] LABS: Glucose, Whole Blood 169 mg/dL (60-115)
[2023-07-12] MEDS: 0.9 % Sodium Chloride Flush 3 ML SYRINGE IVFLUSH (20:40)
[2023-07-12] MEDS: Insulin Glargine,Hum.rec.anlog 100 UNIT/ML 10 ML VIAL 20 UNIT SUBCUT (20:44)
--- NOTE | 2023-07-13 00:18 | W.PM.IDCN ---
History of Present Illness Data of Consult Service Date: 07/11/23 Requesting physician: Chester Avalos Primary Care Provider: MUNA Espinoza HPI Reason for consult: OM left great toe He presents with nine days left great toe swelling and pain. He has no fever or chills. He may have been wearing tight shoes. Review of Systems Review of Systems: Yes all other systems are reviewed and are negative PMFSH Past Medical History Medical History Anxiety HTN (hypertension) Type 2 diabetes mellitus Family History Family history: reviewed and not pertinent Social History Social History Household Members: Children Housing: Apartment Do you presently have visiting nurse or other home services: No Alcohol intake: never Patient Tobacco Use Status: Never used Tobacco Smoked in Last 30 Days: No Use of substances other than those prescribed or required for medical reasons: No Currently Displaying Signs/Symptoms of Drug Intoxication Withdrawal: No Have you been hit, kicked, punched, or otherwise hurt by someone within the past year? If so, by whom?: No Do you feel safe in your current relationship?: No Current Relationship Is there a partner from a previous relationship who is making you feel unsafe now?: No Are you made to feel afraid or neglected: No Advance Directives: No Advance Directives Information Provided: Yes Do you have a plan to hurt others: No Plan Recently lost weight without trying: No How much weight loss: Not applicable Eating poorly because of decreased appetite: No Nutrition screen score: 0 Nutrition Risks: No Nutritional Risk Poor oral hygiene: No Meds Allergies Allergy/AdvReac Type Severity Reaction Status Date / Time No Known Allergies Allergy Verified 07/11/23 11:51 Active Medications: Current Medications Acetaminophen (Acetaminophen 325 Mg Tablet) 650 mg PO Q6H PRN PRN Reason: Fever Amlodipine Besylate (Amlodipine Besylate 5 Mg Tablet) 5 mg PO DAILY [facility]; Protocol Last Admin: 07/12/23 08:05 Dose: 5 mg Calcium Carbonate (Calcium Carbonate 750 Mg Tab.Chew) 750 mg PO Q6H PRN PRN Reason: Heartburn Glucose (Glucose Gel 15 Gm Gel..Gram.) 15 gm PO Q15M PRN; Protocol PRN Reason: per Hypoglycemia Standing Ord. Heparin Sodium (Porcine) (Heparin Sodium,Porcine 5,000 Unit/Ml Vial) 5,000 unit SUBCUT Q12H [facility] Last Admin: 07/12/23 14:26 Dose: 5,000 unit Piperacillin Sod/Tazobactam (Sod 4.5 gm/ Sodium Chloride) 100 mls @ 200 mls/hr IV Q6H [facility] Last Infusion: 07/12/23 21:17 Dose: Infused Dextrose (D10) 250 mls @ 750 mls/hr IV Q15M PRN; Protocol PRN Reason: per Hypoglycemia Standing Ord. Vancomycin HCl 1,500 mg/ (Sodium Chloride) 500 mls @ 333.333 mls/hr IV Q12H [facility] Insulin Glargine (Insulin Glargine,Hum.Rec.Anlog 100 Unit/Ml 10 Ml Vial) 20 unit SUBCUT BEDTIME [facility] Last Admin: 07/12/23 20:44 Dose: 20 unit Insulin Human Lispro (Insulin Lispro 100 Unit/Ml 3 Ml Vial) 0 unit SUBCUT QIDACHS [facility]; Protocol Last Admin: 07/12/23 20:43 Dose: 2 unit Magnesium Hydroxide (Milk Of Magnesia 30 Ml Oral.Susp) 30 ml PO DAILY PRN PRN Reason: Constipation Melatonin (Melatonin 3 Mg Tablet) 6 mg PO BEDTIME PRN PRN Reason: Insomnia Multivitamins/Vitamin C (Multivitamin Tablet) 1 tab PO DAILY [facility] Last Admin: 07/12/23 08:05 Dose: 1 tab Pharmacy Consult (Consult Rx Vancomycin Dosing) 1 each MISCELLANE DAILY PRN PRN Reason: Consult order Polyethylene Glycol (Polyethylene Glycol 3350 17 Gm Powd.Pack) 17 gm PO DAILY PRN PRN Reason: Constipation Sodium Chloride (0.9 % Sodium Chloride Flush 3 Ml Syringe) 3 ml IVFLUSH QSHIFT [facility] Last Admin: 07/12/23 20:40 Dose: 3 ml Home Medications ?Medication ?Instructions ?Recorded ?Confirmed ?Last Taken ?Type metformin 1,000 mg tablet 1,000 mg PO BID 07/11/23 07/11/23 07/10/23 History multivitamin 1 tab PO DAILY 07/11/23 07/11/23 07/10/23 History Physical Exam Vital Signs: Vital Signs: Last Vital Signs Temp 97.1 F 07/12/23 19:23 Pulse 96 05/14/24 19:23 Resp 16 07/12/23 19:23 BP 138/81 07/12/23 19:23 Pulse Ox 98 07/12/23 19:23 O2 Del Method Room Air 07/12/23 15:25 BMI result Body Mass Index 31.0 Const: General: cooperative HEENT: Head: Yes normal to inspection Face and sinus: Yes normal facial exam Mouth: Normal oral and palatal mucosa present Teeth and gingiva: dentition normal Eyes: General: appearance normal, both eyes and all related structures Pupils: Equal, round and reactive pupils present Resp: Effort & Inspection: normal respiratory effort Cardio: Rate: regular rate Rhythm: regular rhythm GI: Palpation (GI): Soft to palpation and nontender : General: Yes no CVA tenderness Back/Spine/Pelvis: Back: no CVA tenderness Skin: General skin exam: no rashes or lesions noted Neuro: General: moves all extremities Cranial nerves: Yes Equal, round and reactive pupils present Extrem: Other: left great toe some purulence/necrosis Psych: Appearance: grossly normal Results Labs 07/12/23 05:30 07/12/23 05:30 Labs: Short CBC 07/12/23 Range/Units 05:30 WBC 6.7 (4.8-10.8) X10*3/uL Hgb 11.4 L (14.0-18.0) g/dl Hct 33.2 L (42.0-52.0) % Plt Count 291 (160-400) X10*3/uL BMP 07/12/23 05:30 Sodium 142 Potassium 4.0 Chloride 107 Carbon Dioxide 24 BUN 12 Creatinine 0.75 Calcium 9.2 D Microbiology Microbiology Results: Microbiology 07/11/23 13:43 Blood - Venous Blood Culture - Preliminary No growth after 24 hours. 07/11/23 12:06 Blood - Venous Blood Culture - Preliminary No growth after 24 hours. Assessment and Plan (1) Osteomyelitis of great toe of left foot: Status: Acute (2) Uncontrolled type 2 diabetes mellitus with hyperglycemia: Status: Acute Plan So far no bacteremia or positive cultures. Should treat for gram negative and gram positive and anerobes There is OM Suppressive treatment with probable ertapenem and/or Vancomycin,depends on cultures so will need PICC line and weekly labs. Follow Wound Clinic.
[2023-07-13] MEDS: Piperacillin Sodium/Tazobactam 4.5 GM in 0.9 % Sodium Chloride 100 ML IV ×4 (01:52→19:07)
[2023-07-13] MEDS: vancomycin HCL 1,500 MG in 0.9 % Sodium Chloride 500 ML 333.33 MG IV (02:32)
[2023-07-13] MEDS: Heparin Sodium,Porcine 5,000 UNIT/ML VIAL 5000 UNIT SUBCUT ×2 (02:34→15:38)
[2023-07-13 03:34] VITALS: BP 150/78; PULSE 68; RESP 18; TEMP 36.3; O2SAT 96
[2023-07-13 06:40] LABS: Creatinine Clr Calc Pharmacy 105.6; Estimated Glomerular Filt Rate > 60
[2023-07-13 07:07] VITALS: BP 141/77; PULSE 73; RESP 16; TEMP 36; O2SAT 96
[2023-07-13 07:25] LABS: Glucose, Whole Blood 138 mg/dL (60-115)
[2023-07-13 07:35] VITALS: BP 141/77
[2023-07-13] MEDS: Multivitamin TABLET 1 TAB PO (07:35)
[2023-07-13] MEDS: 0.9 % Sodium Chloride Flush 3 ML SYRINGE IVFLUSH ×3 (07:35→23:59)
[2023-07-13] MEDS: amLODIPine Besylate 5 MG TABLET PO (07:35)
--- NOTE | 2023-07-13 11:15 | MHC.CM.PN ---
Per MD rounds patient will require PICC placement and IV abx. Patient does not have insurance at this time. CM met w/ patient with [employer] assistance. Patient reports he has tried to apply for [employer] in the past, and was very confused by the process. Reports he is not working and believes he will qualify. Referral sent to for assistance. Does not believe he will be able to afford IV abx out of pocket. MD aware.
[2023-07-13 11:23] LABS: Glucose, Whole Blood 368 mg/dL (60-115)
[2023-07-13] MEDS: Insulin Lispro 100 UNIT/ML 3 ML VIAL SUBCUT ×3 (12:04→20:24)
--- NOTE | 2023-07-13 14:16 | P.PNIM_ITS ---
Subjective Subjective Date of Service: 07/13/23 Interval History: left toe ulcer Review of Systems foot ulcer seems similar no erythema or fevers Physical Exam 2 Vital Signs: Vital Signs: Last Vital Signs Temp 96.8 F 07/13/23 07:07 Pulse 73 07/13/23 07:07 Resp 16 07/13/23 07:07 BP 141/77 H 07/13/23 07:35 Pulse Ox 96 07/13/23 07:07 O2 Del Method Room Air 07/13/23 07:07 BMI result Body Mass Index 31.0 Appearance: Alert.? Oriented X3.? cvs: [id number], [id number] . res: clear to auscultation ,no rhonchii or wheezing abd: no rebound or guarding ,nt, bs present. ext pulses present , no cyanosis. ulcer plantar surface L great toe with faint erythema of the L great toe neuro: axo3 , nonfocal. Objective Data Active Medications Acetaminophen (Acetaminophen 325 Mg Tablet) 650 mg PO Q6H PRN PRN Reason: Fever Amlodipine Besylate (Amlodipine Besylate 5 Mg Tablet) 5 mg PO DAILY [facility]; Protocol Last Admin: 07/13/23 07:35 Dose: 5 mg Documented By: KIERAN Calcium Carbonate (Calcium Carbonate 750 Mg Tab.Chew) 750 mg PO Q6H PRN PRN Reason: Heartburn Glucose (Glucose Gel 15 Gm Gel..Gram.) 15 gm PO Q15M PRN; Protocol PRN Reason: per Hypoglycemia Standing Ord. Heparin Sodium (Porcine) (Heparin Sodium,Porcine 5,000 Unit/Ml Vial) 5,000 unit SUBCUT Q12H [facility] Last Admin: 07/13/23 02:34 Dose: 5,000 unit Documented By: SISSY Piperacillin Sod/Tazobactam (Sod 4.5 gm/ Sodium Chloride) 100 mls @ 200 mls/hr IV Q6H [facility] Last Admin: 07/13/23 13:59 Dose: 200 mls/hr Documented By: KIERAN Dextrose (D10) 250 mls @ 750 mls/hr IV Q15M PRN; Protocol PRN Reason: per Hypoglycemia Standing Ord. Vancomycin HCl 1,500 mg/ (Sodium Chloride) 500 mls @ 333.333 mls/hr IV Q12H [facility] Last Infusion: 07/13/23 04:08 Dose: Infused Documented By: SISSY Insulin Glargine (Insulin Glargine,Hum.Rec.Anlog 100 Unit/Ml 10 Ml Vial) 20 unit SUBCUT BEDTIME [facility] Last Admin: 07/12/23 20:44 Dose: 20 unit Documented By: SISSY Insulin Human Lispro (Insulin Lispro 100 Unit/Ml 3 Ml Vial) 0 unit SUBCUT QIDACHS [facility]; Protocol Last Admin: 07/13/23 12:04 Dose: 10 unit Documented By: KIERAN Magnesium Hydroxide (Milk Of Magnesia 30 Ml Oral.Susp) 30 ml PO DAILY PRN PRN Reason: Constipation Melatonin (Melatonin 3 Mg Tablet) 6 mg PO BEDTIME PRN PRN Reason: Insomnia Multivitamins/Vitamin C (Multivitamin Tablet) 1 tab PO DAILY [facility] Last Admin: 07/13/23 07:35 Dose: 1 tab Documented By: KIERAN Pharmacy Consult (Consult Rx Vancomycin Dosing) 1 each MISCELLANE DAILY PRN PRN Reason: Consult order Polyethylene Glycol (Polyethylene Glycol 3350 17 Gm Powd.Pack) 17 gm PO DAILY PRN PRN Reason: Constipation Sodium Chloride (0.9 % Sodium Chloride Flush 3 Ml Syringe) 3 ml IVFLUSH QSHIFT [facility] Last Admin: 07/13/23 07:35 Dose: 3 ml Documented By: KIERAN Labs 07/12/23 05:30 07/13/23 06:09 Labs: Laboratory Results - last 24 hr 07/12/23 07/12/23 07/12/23 15:10 16:06 20:12 Hold Purple Top Estim Creat Clear Calc Estimated GFR POC Glucose 172 H 169 H Random Vancomycin 9.9 L 07/13/23 07/13/23 07/13/23 06:09 07:05 11:18 Hold Purple Top SEE NOTE Estim Creat Clear Calc 105.6 Estimated GFR > 60 POC Glucose 138 H 368 H* Random Vancomycin Microbiology Microbiology Results: Microbiology 07/11/23 12:06 Blood Culture - Preliminary Blood - Venous No growth after 48 hours. 07/11/23 13:43 Blood Culture - Preliminary Blood - Venous No growth after 24 hours. Assessment and Plan (1) Uncontrolled type 2 diabetes mellitus with hyperglycemia: Status: Acute (2) Osteomyelitis of great toe of left foot: Status: Acute Assessment and Plan: 63-year-old male with history of lfo-apptjtn-ukbsxsqin type 2 diabetes, anxiety, chronic tremor who has poor outpatient follow-up admitted for further management of acute osteomyelitis of the left great toe acute osteomyelitis of the left great toe with nonhealing stage II ulcer of the left great toe related to uncontrolled type 2 diabetes x-ray of the left foot shows high suspicion for osteomyelitis. ESR 50, CRP 4.19.,MRI ordered for further evaluation of osteomyelitis arterial Doppler left lower extremity -no evidence of any hemodynamically significant lower extremity arterial disease. mri: Soft tissue wound along the plantar/medial aspect of the 1st distal phalanx. There is edema/cellulitis in the soft tissues. No abscess is seen. Abnormal findings in the 1st distal phalanx consistent with osteomyelitis. plan: continue IV vancomycin and Zosyn (initiated 07/10) wound care & ID consult,pt eval follow CBC, cultures uncontrolled [id number] type 2 diabetes with hyperglycemia- fs uncontrolled A1c 11.3% adjusted 20 units Lantus nightly POC glucose, diabetic diet, adjusted humalog on sliding scale hypertension continue amlodipine 5 mg daily Tremor, shuffling gait -concern for parkinsons, outpt follow up with pcp/neuro DVT prophylaxis- heparin full code Patient requires inpatient stay for management of osteo myelitis with nonhealing stage II ulcer of the left great toe with infection requiring IV antibiotics, close monitoring of blood cultures as patient will likely require long-term antibiotics, as well as expert consultation Quality Stroke Does the patient have a stroke diagnosis?: No VTE Prior VTE?: No VTE Risk Level:: Medical - moderate - high VTE Device Contraindication: Treatment Not Indicated VTE Drug Contraindication: N/A - Med Ordered
[2023-07-13 14:50] LABS: Vancomycin Random 13.9 mcg/mL (15-20)
[2023-07-13 15:11] VITALS: BP 135/76; PULSE 98; RESP 18; TEMP 36.2; O2SAT 98
--- NOTE | 2023-07-13 15:20 | MHC.CM.PN ---
PER ROUNDS PT NOT MEDICALLY READY FOR DC
--- NOTE | 2023-07-13 15:29 | MHC.CM.PN ---
PT NOTREADY FOR DC HAS NONHEALING ULCER
--- NOTE | 2023-07-13 15:36 | HO.WOUND ---
Wound Consult: Initial 63yr old?Male admitted to [facility] on 07/11/23 - See progress notes and H&P for detailed history.? Wound consult placed for Left Great Toe Wound POA.? Patient agreeable to assessment and photo documentation.? 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 Patient educated on importance of feet checks and proper foot care and proper shoe fit. Left Great Toe Left Anterior Foot Etiology: ??Diabetic Wound Wound Bed: stable black maroon eschar - no fluctance no indruation noted Drainage / Odor: None Edges: ? Well defined Christiane wound: ?+Swelling noted, great toe hyperpigmentation noted - No Induration, Fluctuance or Warmth noted Pain: denies pain and denies neuropathy - suspect some level of neuropathy present Goals of Treatment: ? Betadine to keep stable - outpt follow up with wound clinic Anterior foot with blood blister noted - unclear etilogy - paint with betadine. Recommendations: 1. Turn and Reposition every 2 hours and as needed for patient comfort.? Use pillows or wedges to support off loading positions. 2. Off Load all bony prominences with use of pillows and heel boots if needed.? Apply Preventative foams where needed. ? 3. Monitor for incontinence and moisture control, use barrier creams when needed for prevention and treatment. 4. Provide adequate and supplemental nutrition.? 5. When applicable maintain blood glucose levels per Providers order. 6. Left Great Toe - Elevate lower Legs - Cleanse with Betadine allow to dry Daily. Leave open to air may cover with dry gauze but do not use foam dressing. Patient educated to wear shoes when ambulating. Recommend follow up out patient Wound Clinic at [address] [place] [id number] and to call for an appointment at time of discharge. [phone].? Re-consult wound care Nurse for wound deterioration or wound changes.
[2023-07-13] MEDS: vancomycin HCL 1,250 MG in 0.9 % Sodium Chloride 250 ML 166.67 MG IV (15:38)
[2023-07-13 16:29] LABS: Glucose, Whole Blood 297 mg/dL (60-115)
[2023-07-13 19:36] VITALS: BP 154/81; PULSE 92; RESP 16; TEMP 36.1; O2SAT 99
[2023-07-13 20:11] LABS: Glucose, Whole Blood 249 mg/dL (60-115)
[2023-07-13] MEDS: Insulin Glargine,Hum.rec.anlog 100 UNIT/ML 10 ML VIAL 22 UNIT SUBCUT (20:25)
[2023-07-14] MEDS: Piperacillin Sodium/Tazobactam 4.5 GM in 0.9 % Sodium Chloride 100 ML IV ×4 (02:30→19:33)
[2023-07-14 03:16] VITALS: BP 140/82; PULSE 72; RESP 17; TEMP 36.2; O2SAT 98
[2023-07-14] MEDS: vancomycin HCL 1,250 MG in 0.9 % Sodium Chloride 250 ML 166.67 MG IV ×2 (03:41→15:18)
[2023-07-14] MEDS: Heparin Sodium,Porcine 5,000 UNIT/ML VIAL 5000 UNIT SUBCUT ×2 (03:45→14:49)
[2023-07-14 07:19] VITALS: BP 166/80; PULSE 73; RESP 14; TEMP 36.1; O2SAT 96
[2023-07-14 07:26] LABS: Glucose, Whole Blood 103 mg/dL (60-115)
[2023-07-14 07:29] LABS: Creatinine Clr Calc Pharmacy 102.8; Estimated Glomerular Filt Rate > 60
[2023-07-14 07:47] VITALS: BP 166/80
[2023-07-14] MEDS: amLODIPine Besylate 5 MG TABLET PO (07:47)
[2023-07-14] MEDS: Multivitamin TABLET 1 TAB PO (07:47)
[2023-07-14] MEDS: 0.9 % Sodium Chloride Flush 3 ML SYRINGE IVFLUSH ×3 (07:48→19:33)
[2023-07-14 11:19] LABS: Glucose, Whole Blood 196 mg/dL (60-115)
[2023-07-14 11:22] LABS: MRSA Nasal PCR NEGATIVE (Negative); SA Nasal PCR NEGATIVE (Negative)
[2023-07-14] MEDS: Insulin Lispro 100 UNIT/ML 3 ML VIAL SUBCUT ×3 (12:37→20:54)
--- NOTE | 2023-07-14 13:18 | HO.PM.IMPN ---
Subjective Subjective Date of Service: 07/14/23 Interval History: left toe ulcer Review of Systems foot ulcer seems similar no erythema or fevers Physical Exam Vital Signs: Vital Signs: Last Vital Signs Temp 96.9 F 07/14/23 07:19 Pulse 73 07/14/23 07:19 Resp 14 07/14/23 07:19 BP 166/80 H 07/14/23 07:47 Pulse Ox 96 07/14/23 07:19 O2 Del Method Room Air 07/14/23 07:19 BMI result Body Mass Index 31.0 Appearance: Alert.? Oriented X3.? cvs: [id number], [id number] . res: clear to auscultation ,no rhonchii or wheezing abd: no rebound or guarding ,nt, bs present. ext pulses present , no cyanosis. ulcer plantar surface L great toe with faint erythema of the L great toe neuro: axo3 , nonfocal. Objective Data Active Medications Acetaminophen (Acetaminophen 325 Mg Tablet) 650 mg PO Q6H PRN PRN Reason: Fever Amlodipine Besylate (Amlodipine Besylate 5 Mg Tablet) 5 mg PO DAILY [facility]; Protocol Last Admin: 07/14/23 07:47 Dose: 5 mg Documented By: ESTEBAN Calcium Carbonate (Calcium Carbonate 750 Mg Tab.Chew) 750 mg PO Q6H PRN PRN Reason: Heartburn Glucose (Glucose Gel 15 Gm Gel..Gram.) 15 gm PO Q15M PRN; Protocol PRN Reason: per Hypoglycemia Standing Ord. Heparin Sodium (Porcine) (Heparin Sodium,Porcine 5,000 Unit/Ml Vial) 5,000 unit SUBCUT Q12H [facility] Last Admin: 07/14/23 03:45 Dose: 5,000 unit Documented By: JOHN Piperacillin Sod/Tazobactam (Sod 4.5 gm/ Sodium Chloride) 100 mls @ 200 mls/hr IV Q6H [facility] Last Infusion: 07/14/23 08:38 Dose: Infused Documented By: ESTEBAN Dextrose (D10) 250 mls @ 750 mls/hr IV Q15M PRN; Protocol PRN Reason: per Hypoglycemia Standing Ord. Vancomycin HCl 1,250 mg/ (Sodium Chloride) 250 mls @ 166.667 mls/hr IV Q12H [facility] Last Infusion: 07/14/23 05:12 Dose: Infused Documented By: JOHN Insulin Glargine (Insulin Glargine,Hum.Rec.Anlog 100 Unit/Ml 10 Ml Vial) 22 unit SUBCUT BEDTIME [facility] Last Admin: 07/13/23 20:25 Dose: 22 unit Documented By: SISSY Insulin Human Lispro (Insulin Lispro 100 Unit/Ml 3 Ml Vial) 0 unit SUBCUT QIDACHS [facility]; Protocol Last Admin: 07/14/23 12:37 Dose: 2 unit Documented By: ESTEBAN Magnesium Hydroxide (Milk Of Magnesia 30 Ml Oral.Susp) 30 ml PO DAILY PRN PRN Reason: Constipation Melatonin (Melatonin 3 Mg Tablet) 6 mg PO BEDTIME PRN PRN Reason: Insomnia Multivitamins/Vitamin C (Multivitamin Tablet) 1 tab PO DAILY [facility] Last Admin: 07/14/23 07:47 Dose: 1 tab Documented By: ESTEBAN Pharmacy Consult (Consult Rx Vancomycin Dosing) 1 each MISCELLANE DAILY PRN PRN Reason: Consult order Polyethylene Glycol (Polyethylene Glycol 3350 17 Gm Powd.Pack) 17 gm PO DAILY PRN PRN Reason: Constipation Sodium Chloride (0.9 % Sodium Chloride Flush 3 Ml Syringe) 3 ml IVFLUSH QSHIFT [facility] Last Admin: 07/14/23 07:48 Dose: 3 ml Documented By: ESTEBAN Labs 07/12/23 05:30 07/14/23 06:00 Labs: Laboratory Results - last 24 hr 07/13/23 07/13/23 07/13/23 13:48 16:01 16:25 Estim Creat Clear Calc Estimated GFR POC Glucose 297 H Nasal Screen MRSA (PCR) NEGATIVE Nasal S. aureus Screen NEGATIVE Nasal MRSA/S.aureus Interp SEE NOTE Random Vancomycin 13.9 L 07/13/23 07/14/23 07/14/23 20:06 06:00 07:21 Estim Creat Clear Calc 102.8 Estimated GFR > 60 POC Glucose 249 H 103 Nasal Screen MRSA (PCR) Nasal S. aureus Screen Nasal MRSA/S.aureus Interp Random Vancomycin 07/14/23 11:08 Estim Creat Clear Calc Estimated GFR POC Glucose 196 H Nasal Screen MRSA (PCR) Nasal S. aureus Screen Nasal MRSA/S.aureus Interp Random Vancomycin Microbiology Microbiology Results: Microbiology 07/11/23 13:43 Blood Culture - Preliminary Blood - Venous No growth after 48 hours. 07/11/23 12:06 Blood Culture - Preliminary Blood - Venous No growth after 48 hours. Assessment and Plan (1) Uncontrolled type 2 diabetes mellitus with hyperglycemia: Status: Acute (2) Osteomyelitis of great toe of left foot: Status: Acute Assessment and Plan: 63-year-old male with history of mmm-flnyyuk-tmtuuubzs type 2 diabetes, anxiety, chronic tremor who has poor outpatient follow-up admitted for further management of acute osteomyelitis of the left great toe acute osteomyelitis of the left great toe with nonhealing stage II ulcer of the left great toe related to uncontrolled type 2 diabetes x-ray of the left foot shows high suspicion for osteomyelitis. ESR 50, CRP 4.19.,MRI ordered for further evaluation of osteomyelitis arterial Doppler left lower extremity -no evidence of any hemodynamically significant lower extremity arterial disease. mri: Soft tissue wound along the plantar/medial aspect of the 1st distal phalanx. There is edema/cellulitis in the soft tissues. No abscess is seen. Abnormal findings in the 1st distal phalanx consistent with osteomyelitis. plan: continue IV vancomycin and Zosyn (initiated 07/10) wound care & ID consult,pt eval follow CBC, cultures uncontrolled jvg-qdyrcke-nyitastbe type 2 diabetes with hyperglycemia- fs uncontrolled A1c 11.3% adjusted 20 units Lantus nightly POC glucose, diabetic diet, adjusted humalog on sliding scale hypertension continue amlodipine 5 mg daily Tremor, shuffling gait -concern for parkinsons, outpt follow up with pcp/neuro DVT prophylaxis- heparin full code Patient requires inpatient stay for management of osteo myelitis with nonhealing stage II ulcer of the left great toe with infection requiring IV antibiotics, close monitoring of blood cultures as patient will likely require long-term antibiotics, as well as expert consultation Quality Stroke Does the patient have a stroke diagnosis?: No VTE Prior VTE?: No VTE Risk Level:: Medical - moderate - high VTE Device Contraindication: Treatment Not Indicated VTE Drug Contraindication: N/A - Med Ordered
[2023-07-14 13:44] LABS: Vancomycin Random 16.7 mcg/mL (15-20)
--- NOTE | 2023-07-14 14:42 | MHC.CM.PN ---
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 AWARE. CM TO EXPLORE OTHER OPTIONS RE:POSSIBLE OP SERVICES FOR DAILY IV RX? CM WILL CONTINUE TO FOLLOW
[2023-07-14 15:38] VITALS: BP 146/71; PULSE 75; RESP 16; TEMP 36.5; O2SAT 98
[2023-07-14 16:17] LABS: Glucose, Whole Blood 258 mg/dL (60-115)
[2023-07-14 19:37] VITALS: BP 157/85; PULSE 83; RESP 18; TEMP 36.2; O2SAT 98
[2023-07-14 20:30] LABS: Glucose, Whole Blood 278 mg/dL (60-115)
[2023-07-14] MEDS: Insulin Glargine,Hum.rec.anlog 100 UNIT/ML 10 ML VIAL 22 UNIT SUBCUT (20:55)
[2023-07-15] MEDS: Piperacillin Sodium/Tazobactam 4.5 GM in 0.9 % Sodium Chloride 100 ML IV (02:08)
[2023-07-15] MEDS: vancomycin HCL 1,250 MG in 0.9 % Sodium Chloride 250 ML 166.67 MG IV (02:57)
[2023-07-15] MEDS: Heparin Sodium,Porcine 5,000 UNIT/ML VIAL 5000 UNIT SUBCUT ×2 (02:57→15:33)
[2023-07-15 03:55] VITALS: BP 148/80; PULSE 80; RESP 16; TEMP 36.4; O2SAT 97
[2023-07-15 07:21] LABS: Creatinine Clr Calc Pharmacy 97.6; Estimated Glomerular Filt Rate > 60
[2023-07-15 07:37] LABS: Glucose, Whole Blood 124 mg/dL (60-115)
[2023-07-15 07:51] VITALS: BP 157/78; PULSE 77; RESP 16; TEMP 36.1; O2SAT 96
[2023-07-15 09:26] VITALS: BP 157/78
[2023-07-15] MEDS: Multivitamin TABLET 1 TAB PO (09:26)
[2023-07-15] MEDS: 0.9 % Sodium Chloride Flush 3 ML SYRINGE IVFLUSH ×3 (09:26→21:11)
[2023-07-15] MEDS: amLODIPine Besylate 5 MG TABLET PO (09:26)
[2023-07-15 11:37] LABS: Glucose, Whole Blood 176 mg/dL (60-115)
[2023-07-15] MEDS: Insulin Lispro 100 UNIT/ML 3 ML VIAL SUBCUT ×3 (11:58→21:10)
--- NOTE | 2023-07-15 12:58 | P.PNIM_ITS ---
Subjective Subjective Date of Service: 07/15/23 Interval History: left toe ulcer Review of Systems foot ulcer seems similar no erythema or fevers Physical Exam 2 Vital Signs: Vital Signs: Last Vital Signs Temp 97.0 F 07/15/23 07:51 Pulse 77 07/15/23 07:51 Resp 16 07/15/23 07:51 BP 157/78 H 07/15/23 09:26 Pulse Ox 96 07/15/23 07:51 O2 Del Method Room Air 07/15/23 07:51 BMI result Body Mass Index 31.0 Appearance: Alert.? Oriented X3.? cvs: rrr, [id number] . res: clear to auscultation ,no rhonchii or wheezing abd: no rebound or guarding ,nt, bs present. ext pulses present , no cyanosis. ulcer plantar surface L great toe with faint erythema of the L great toe neuro: axo3 , nonfocal. Objective Data Active Medications Acetaminophen (Acetaminophen 325 Mg Tablet) 650 mg PO Q6H PRN PRN Reason: Fever Amlodipine Besylate (Amlodipine Besylate 5 Mg Tablet) 5 mg PO DAILY [facility]; Protocol Last Admin: 07/15/23 09:26 Dose: 5 mg Documented By: TESS Calcium Carbonate (Calcium Carbonate 750 Mg Tab.Chew) 750 mg PO Q6H PRN PRN Reason: Heartburn Glucose (Glucose Gel 15 Gm Gel..Gram.) 15 gm PO Q15M PRN; Protocol PRN Reason: per Hypoglycemia Standing Ord. Heparin Sodium (Porcine) (Heparin Sodium,Porcine 5,000 Unit/Ml Vial) 5,000 unit SUBCUT Q12H [facility] Last Admin: 07/15/23 02:57 Dose: 5,000 unit Documented By: PHILOMENA Dextrose (D10) 250 mls @ 750 mls/hr IV Q15M PRN; Protocol PRN Reason: per Hypoglycemia Standing Ord. Meropenem 1 gm/ Sodium (Chloride) 100 mls @ 200 mls/hr IV Q8H [facility] Last Infusion: 07/15/23 10:22 Dose: Infused Documented By: TESS Insulin Glargine (Insulin Glargine,Hum.Rec.Anlog 100 Unit/Ml 10 Ml Vial) 22 unit SUBCUT BEDTIME [facility] Last Admin: 07/14/23 20:55 Dose: 22 unit Documented By: PHILOMENA Insulin Human Lispro (Insulin Lispro 100 Unit/Ml 3 Ml Vial) 0 unit SUBCUT QIDACHS [facility]; Protocol Last Admin: 07/15/23 11:58 Dose: 2 unit Documented By: TESS Magnesium Hydroxide (Milk Of Magnesia 30 Ml Oral.Susp) 30 ml PO DAILY PRN PRN Reason: Constipation Melatonin (Melatonin 3 Mg Tablet) 6 mg PO BEDTIME PRN PRN Reason: Insomnia Multivitamins/Vitamin C (Multivitamin Tablet) 1 tab PO DAILY [facility] Last Admin: 07/15/23 09:26 Dose: 1 tab Documented By: TESS Polyethylene Glycol (Polyethylene Glycol 3350 17 Gm Powd.Pack) 17 gm PO DAILY PRN PRN Reason: Constipation Sodium Chloride (0.9 % Sodium Chloride Flush 3 Ml Syringe) 3 ml IVFLUSH QSHIFT [facility] Last Admin: 07/15/23 09:26 Dose: 3 ml Documented By: TESS Labs 07/12/23 05:30 07/15/23 06:12 Labs: Laboratory Results - last 24 hr 07/14/23 07/14/23 07/14/23 13:05 16:10 20:23 Estim Creat Clear Calc Estimated GFR POC Glucose 258 H 278 H Random Vancomycin 16.7 07/15/23 07/15/23 07/15/23 06:12 07:31 11:32 Estim Creat Clear Calc 97.6 Estimated GFR > 60 POC Glucose 124 H 176 H Random Vancomycin Assessment and Plan (1) Uncontrolled type 2 diabetes mellitus with hyperglycemia: Status: Acute (2) Osteomyelitis of great toe of left foot: Status: Acute Assessment and Plan: 63-year-old male with history of xta-yrixqbo-srmsmqnnw type 2 diabetes, anxiety, chronic tremor who has poor outpatient follow-up admitted for further management of acute osteomyelitis of the left great toe acute osteomyelitis of the left great toe with nonhealing stage II ulcer of the left great toe related to uncontrolled type 2 diabetes x-ray of the left foot shows high suspicion for osteomyelitis. ESR 50, CRP 4.19.,MRI ordered for further evaluation of osteomyelitis arterial Doppler left lower extremity -no evidence of any hemodynamically significant lower extremity arterial disease. mri: Soft tissue wound along the plantar/medial aspect of the 1st distal phalanx. There is edema/cellulitis in the soft tissues. No abscess is seen. Abnormal findings in the 1st distal phalanx consistent with osteomyelitis. plan: blood cultures negative @48hrs continue IV vancomycin and Zosyn (initiated 07/10) ID consult-will switch to meropenem,pt eval uncontrolled ara-thfqvvu-oweyuorox type 2 diabetes with hyperglycemia- fs uncontrolled A1c 11.3% adjusted 20 units Lantus nightly POC glucose, diabetic diet, adjusted humalog on sliding scale hypertension continue amlodipine 5 mg daily Tremor, shuffling gait -concern for parkinsons, outpt follow up with pcp/neuro. wound care: Anterior foot with blood blister noted - unclear etilogy - paint with betadine. Recommendations: 1. Turn and Reposition every 2 hours and as needed for patient comfort.? Use pillows or wedges to support off loading positions. 2. Off Load all bony prominences with use of pillows and heel boots if needed.? Apply Preventative foams where needed. ? 3. Monitor for incontinence and moisture control, use barrier creams when needed for prevention and treatment. 4. Provide adequate and supplemental nutrition.? 5. When applicable maintain blood glucose levels per Providers order. 6. Left Great Toe - Elevate lower Legs - Cleanse with Betadine allow to dry Daily. Leave open to air may cover with dry gauze but do not use foam dressing. Patient educated to wear shoes when ambulating. DVT prophylaxis- heparin full code Patient requires inpatient stay for management of osteo myelitis with nonhealing stage II ulcer of the left great toe with infection requiring IV antibiotics, close monitoring of blood cultures as patient will likely require long-term antibiotics, as well as expert consultation Quality Stroke Does the patient have a stroke diagnosis?: No VTE Prior VTE?: No VTE Risk Level:: Medical - moderate - high VTE Device Contraindication: Treatment Not Indicated VTE Drug Contraindication: N/A - Med Ordered
--- NOTE | 2023-07-15 13:26 | MHC.CM.PN ---
per ashwin in fs pt is not a [place] citizen he has [employer] that will pay for er visits and hospitia; stays pt will need to go to a health clinic for meds
[2023-07-15 13:35] LABS: Vancomycin Random 17.3 mcg/mL (15-20)
--- NOTE | 2023-07-15 14:21 | MHC.CM.PN ---
pt can nopt sart outpt iv antibiotics thru day stay on the weekends ..spoke with iris in day stay [id number] who referred me to [facility] in registration [id number] who will be speaking with iris in day stay..
--- NOTE | 2023-07-15 14:48 | MHC.CM.PN ---
MICHAELA ARREAGA IN PT REGISTRATION CALLED BACK AND SAID TO CALL THE [facility] AT EXT [phone] TODAY DID NOT ANSWER WILL FOLLW UP
[2023-07-15 15:36] VITALS: BP 156/75; PULSE 74; RESP 18; TEMP 36.1; O2SAT 97
[2023-07-15 16:16] LABS: Glucose, Whole Blood 163 mg/dL (60-115)
[2023-07-15 20:00] VITALS: BP 162/81; PULSE 75; RESP 16; TEMP 36.3; O2SAT 96
[2023-07-15 20:26] LABS: Glucose, Whole Blood 163 mg/dL (60-115)
[2023-07-15] MEDS: Insulin Glargine,Hum.rec.anlog 100 UNIT/ML 10 ML VIAL 22 UNIT SUBCUT (21:11)
[2023-07-16] MEDS: Heparin Sodium,Porcine 5,000 UNIT/ML VIAL 5000 UNIT SUBCUT ×2 (02:30→14:22)
[2023-07-16 04:00] VITALS: BP 138/74; PULSE 73; RESP 16; TEMP 36.5; O2SAT 97
[2023-07-16 06:01] LABS: Creatinine Clr Calc Pharmacy 105.6; Estimated Glomerular Filt Rate > 60
[2023-07-16 07:14] VITALS: BP 172/81; PULSE 72; RESP 18; TEMP 36.4; O2SAT 95
[2023-07-16 07:19] LABS: Glucose, Whole Blood 123 mg/dL (60-115)
[2023-07-16 08:31] VITALS: BP 172/81
[2023-07-16] MEDS: 0.9 % Sodium Chloride Flush 3 ML SYRINGE IVFLUSH ×2 (08:31→15:24)
[2023-07-16] MEDS: amLODIPine Besylate 5 MG TABLET PO (08:31)
[2023-07-16] MEDS: Multivitamin TABLET 1 TAB PO (08:31)
[2023-07-16 11:09] LABS: Glucose, Whole Blood 137 mg/dL (60-115)
[2023-07-16 12:10] VITALS: BP 163/78; PULSE 75; RESP 18; O2SAT 96
--- NOTE | 2023-07-16 12:11 | P.PNIM_ITS ---
Subjective Subjective Date of Service: 07/16/23 Interval History: left toe ulcer Review of Systems foot ulcer seems similar, no new c/o. Physical Exam 2 Vital Signs: Vital Signs: Last Vital Signs Temp 97.6 F 07/16/23 07:14 Pulse 75 07/16/23 12:10 Resp 18 07/16/23 12:10 BP 163/78 H 07/16/23 12:10 Pulse Ox 96 07/16/23 12:10 O2 Del Method Room Air 07/16/23 12:10 BMI result Body Mass Index 31.0 Appearance: Alert.? Oriented X3.? cvs: rrr, [id number] . res: clear to auscultation ,no rhonchii or wheezing abd: no rebound or guarding ,nt, bs present. ext pulses present , no cyanosis. ulcer plantar surface L great toe with faint erythema of the L great toe neuro: axo3 , nonfocal. Objective Data Active Medications Acetaminophen (Acetaminophen 325 Mg Tablet) 650 mg PO Q6H PRN PRN Reason: Fever Amlodipine Besylate (Amlodipine Besylate 5 Mg Tablet) 5 mg PO DAILY [facility]; Protocol Last Admin: 07/16/23 08:31 Dose: 5 mg Documented By: EM Calcium Carbonate (Calcium Carbonate 750 Mg Tab.Chew) 750 mg PO Q6H PRN PRN Reason: Heartburn Glucose (Glucose Gel 15 Gm Gel..Gram.) 15 gm PO Q15M PRN; Protocol PRN Reason: per Hypoglycemia Standing Ord. Heparin Sodium (Porcine) (Heparin Sodium,Porcine 5,000 Unit/Ml Vial) 5,000 unit SUBCUT Q12H [facility] Last Admin: 07/16/23 02:30 Dose: 5,000 unit Documented By: SRIDHAR Dextrose (D10) 250 mls @ 750 mls/hr IV Q15M PRN; Protocol PRN Reason: per Hypoglycemia Standing Ord. Meropenem 1 gm/ Sodium (Chloride) 100 mls @ 200 mls/hr IV Q8H [facility] Last Infusion: 07/16/23 09:59 Dose: Infused Documented By: EM Insulin Glargine (Insulin Glargine,Hum.Rec.Anlog 100 Unit/Ml 10 Ml Vial) 22 unit SUBCUT BEDTIME [facility] Last Admin: 07/15/23 21:11 Dose: 22 unit Documented By: SRIDHAR Insulin Human Lispro (Insulin Lispro 100 Unit/Ml 3 Ml Vial) 0 unit SUBCUT QIDACHS [facility]; Protocol Last Admin: 07/16/23 11:14 Dose: Not Given Documented By: EM Non-Admin Reason: No Insulin Coverage Magnesium Hydroxide (Milk Of Magnesia 30 Ml Oral.Susp) 30 ml PO DAILY PRN PRN Reason: Constipation Melatonin (Melatonin 3 Mg Tablet) 6 mg PO BEDTIME PRN PRN Reason: Insomnia Multivitamins/Vitamin C (Multivitamin Tablet) 1 tab PO DAILY [facility] Last Admin: 07/16/23 08:31 Dose: 1 tab Documented By: EM Polyethylene Glycol (Polyethylene Glycol 3350 17 Gm Powd.Pack) 17 gm PO DAILY PRN PRN Reason: Constipation Sodium Chloride (0.9 % Sodium Chloride Flush 3 Ml Syringe) 3 ml IVFLUSH QSHIFT [facility] Last Admin: 07/16/23 08:31 Dose: 3 ml Documented By: EM Labs 07/12/23 05:30 07/16/23 05:10 Labs: Laboratory Results - last 24 hr 07/15/23 07/15/23 07/15/23 13:07 16:13 20:19 Hold Purple Top Estim Creat Clear Calc Estimated GFR POC Glucose 163 H 163 H Random Vancomycin 17.3 07/16/23 07/16/23 07/16/23 05:10 07:16 11:04 Hold Purple Top SEE NOTE Estim Creat Clear Calc 105.6 Estimated GFR > 60 POC Glucose 123 H 137 H Random Vancomycin Assessment and Plan (1) Uncontrolled type 2 diabetes mellitus with hyperglycemia: Status: Acute (2) Osteomyelitis of great toe of left foot: Status: Acute Assessment and Plan: 63-year-old male with history of bxf-ckfavyv-pegupjfzv type 2 diabetes, anxiety, chronic tremor who has poor outpatient follow-up admitted for further management of acute osteomyelitis of the left great toe acute osteomyelitis of the left great toe with nonhealing stage II ulcer of the left great toe related to uncontrolled type 2 diabetes x-ray of the left foot shows high suspicion for osteomyelitis. ESR 50, CRP 4.19.,MRI ordered for further evaluation of osteomyelitis arterial Doppler left lower extremity -no evidence of any hemodynamically significant lower extremity arterial disease. mri: Soft tissue wound along the plantar/medial aspect of the 1st distal phalanx. There is edema/cellulitis in the soft tissues. No abscess is seen. Abnormal findings in the 1st distal phalanx consistent with osteomyelitis. plan: blood cultures negative @48hrs continue IV vancomycin and Zosyn (initiated 07/10)-seen by ID -will switch to meropenem( on 07/15/23),pt eval dm type 2 diabetes - fs improving A1c 11.3% adjusted 20 units Lantus nightly POC glucose, diabetic diet, adjusted humalog on sliding scale hypertension continue amlodipine 5 mg daily Tremor, shuffling gait -concern for parkinsons, outpt follow up with pcp/neuro. wound care: Anterior foot with blood blister noted - unclear etilogy - paint with betadine. Recommendations: 1. Turn and Reposition every 2 hours and as needed for patient comfort.? Use pillows or wedges to support off loading positions. 2. Off Load all bony prominences with use of pillows and heel boots if needed.? Apply Preventative foams where needed. ? 3. Monitor for incontinence and moisture control, use barrier creams when needed for prevention and treatment. 4. Provide adequate and supplemental nutrition.? 5. When applicable maintain blood glucose levels per Providers order. 6. Left Great Toe - Elevate lower Legs - Cleanse with Betadine allow to dry Daily. Leave open to air may cover with dry gauze but do not use foam dressing. Patient educated to wear shoes when ambulating. overweight: advised to lose weight ,cut down calories. DVT prophylaxis- heparin full code Patient requires inpatient stay -need placement for antibiotics /infusion center will review if he will able to get iv antibiotics outpatient. Quality Stroke Does the patient have a stroke diagnosis?: No VTE Prior VTE?: No VTE Risk Level:: Medical - moderate - high VTE Device Contraindication: Treatment Not Indicated VTE Drug Contraindication: N/A - Med Ordered
[2023-07-16 15:02] VITALS: BP 169/72; PULSE 77; RESP 18; TEMP 37.1; O2SAT 95
[2023-07-16 16:15] LABS: Glucose, Whole Blood 159 mg/dL (60-115)
[2023-07-16] MEDS: Insulin Lispro 100 UNIT/ML 3 ML VIAL SUBCUT ×2 (16:55→20:47)
[2023-07-16 20:00] VITALS: BP 158/75; PULSE 80; RESP 16; TEMP 36.2; O2SAT 96
[2023-07-16 20:34] LABS: Glucose, Whole Blood 216 mg/dL (60-115)
[2023-07-16] MEDS: Insulin Glargine,Hum.rec.anlog 100 UNIT/ML 10 ML VIAL 22 UNIT SUBCUT (20:48)
[2023-07-17] MEDS: 0.9 % Sodium Chloride Flush 3 ML SYRINGE IVFLUSH ×3 (00:21→15:05)
[2023-07-17] MEDS: Heparin Sodium,Porcine 5,000 UNIT/ML VIAL 5000 UNIT SUBCUT ×2 (03:26→14:11)
[2023-07-17 04:00] VITALS: BP 158/77; PULSE 75; RESP 16; TEMP 36.2; O2SAT 94
[2023-07-17 06:34] LABS: Creatinine Clr Calc Pharmacy 94.1; Estimated Glomerular Filt Rate > 60
[2023-07-17 07:31] VITALS: BP 133/69; PULSE 77; RESP 18; TEMP 36.3; O2SAT 97
[2023-07-17 07:35] LABS: Glucose, Whole Blood 101 mg/dL (60-115)
[2023-07-17 08:28] VITALS: BP 133/69
[2023-07-17] MEDS: amLODIPine Besylate 5 MG TABLET PO (08:28)
[2023-07-17] MEDS: Multivitamin TABLET 1 TAB PO (08:28)
--- NOTE | 2023-07-17 10:48 | P.PNIM_ITS ---
Subjective Subjective Date of Service: 07/17/23 Interval History: dm foot ulcer Review of Systems denies any new c/o no fevers Review of Systems: Yes all other systems are reviewed and are negative Physical Exam 2 Vital Signs: Vital Signs: Last Vital Signs Temp 97.4 F 07/17/23 07:31 Pulse 77 07/17/23 07:31 Resp 18 07/17/23 07:31 BP 133/69 07/17/23 08:28 Pulse Ox 97 07/17/23 07:31 O2 Del Method Room Air 07/17/23 07:31 BMI result Body Mass Index 31.0 Appearance: Alert.? Oriented X3.? cvs: [id number], [id number] . res: clear to auscultation ,no rhonchii or wheezing abd: no rebound or guarding ,nt, bs present. ext pulses present , no cyanosis. ulcer plantar surface L great toe with faint erythema of the L great toe neuro: axo3 , nonfocal. Objective Data Active Medications Acetaminophen (Acetaminophen 325 Mg Tablet) 650 mg PO Q6H PRN PRN Reason: Fever Amlodipine Besylate (Amlodipine Besylate 5 Mg Tablet) 5 mg PO DAILY [facility]; Protocol Last Admin: 07/17/23 08:28 Dose: 5 mg Documented By: EM Calcium Carbonate (Calcium Carbonate 750 Mg Tab.Chew) 750 mg PO Q6H PRN PRN Reason: Heartburn Glucose (Glucose Gel 15 Gm Gel..Gram.) 15 gm PO Q15M PRN; Protocol PRN Reason: per Hypoglycemia Standing Ord. Heparin Sodium (Porcine) (Heparin Sodium,Porcine 5,000 Unit/Ml Vial) 5,000 unit SUBCUT Q12H [facility] Last Admin: 07/17/23 03:26 Dose: 5,000 unit Documented By: KATYA Dextrose (D10) 250 mls @ 750 mls/hr IV Q15M PRN; Protocol PRN Reason: per Hypoglycemia Standing Ord. Meropenem 1 gm/ Sodium (Chloride) 100 mls @ 200 mls/hr IV Q8H [facility] Last Infusion: 07/17/23 09:22 Dose: Infused Documented By: EM Insulin Glargine (Insulin Glargine,Hum.Rec.Anlog 100 Unit/Ml 10 Ml Vial) 22 unit SUBCUT BEDTIME [facility] Last Admin: 07/16/23 20:48 Dose: 22 unit Documented By: AURELIA Insulin Human Lispro (Insulin Lispro 100 Unit/Ml 3 Ml Vial) 0 unit SUBCUT QIDACHAilyn [facility]; Protocol Last Admin: 07/17/23 07:39 Dose: Not Given Documented By: EM Non-Admin Reason: No Insulin Coverage Magnesium Hydroxide (Milk Of Magnesia 30 Ml Oral.Susp) 30 ml PO DAILY PRN PRN Reason: Constipation Melatonin (Melatonin 3 Mg Tablet) 6 mg PO BEDTIME PRN PRN Reason: Insomnia Multivitamins/Vitamin C (Multivitamin Tablet) 1 tab PO DAILY [facility] Last Admin: 07/17/23 08:28 Dose: 1 tab Documented By: EM Polyethylene Glycol (Polyethylene Glycol 3350 17 Gm Powd.Pack) 17 gm PO DAILY PRN PRN Reason: Constipation Sodium Chloride (0.9 % Sodium Chloride Flush 3 Ml Syringe) 3 ml IVFLUSH QSHIFT [facility] Last Admin: 07/17/23 08:28 Dose: 3 ml Documented By: EM Labs 07/12/23 05:30 07/17/23 05:40 Labs: Laboratory Results - last 24 hr 07/16/23 07/16/23 07/16/23 11:04 16:11 20:29 Hold Purple Top Estim Creat Clear Calc Estimated GFR POC Glucose 137 H 159 H 216 H 07/17/23 07/17/23 05:40 07:29 Hold Purple Top SEE NOTE Estim Creat Clear Calc 94.1 Estimated GFR > 60 POC Glucose 101 Microbiology Microbiology Results: Microbiology 07/11/23 13:43 Blood Culture - Final Blood - Venous No growth after 5 days. 07/11/23 12:06 Blood Culture - Final Blood - Venous No growth after 5 days. Assessment and Plan (1) Uncontrolled type 2 diabetes mellitus with hyperglycemia: Status: Acute (2) Osteomyelitis of great toe of left foot: Status: Acute Assessment and Plan: 63-year-old male with history of jfe-[id number]-pxauxvabd type 2 diabetes, anxiety, chronic tremor who has poor outpatient follow-up admitted for further management of acute osteomyelitis of the left great toe acute osteomyelitis of the left great toe with nonhealing stage II ulcer of the left great toe related to uncontrolled type 2 diabetes x-ray of the left foot shows high suspicion for osteomyelitis. ESR 50, CRP 4.19.,MRI ordered for further evaluation of osteomyelitis arterial Doppler left lower extremity -no evidence of any hemodynamically significant lower extremity arterial disease. mri: Soft tissue wound along the plantar/medial aspect of the 1st distal phalanx. There is edema/cellulitis in the soft tissues. No abscess is seen. Abnormal findings in the 1st distal phalanx consistent with osteomyelitis. plan: blood cultures negative @48hrs continue IV vancomycin and Zosyn (initiated 07/10)-seen by ID -will switch to meropenem( on 07/15/23),pt eval dm type 2 diabetes - fs improving A1c 11.3% adjusted 20 units Lantus nightly POC glucose, diabetic diet, adjusted humalog on sliding scale hypertension continue amlodipine 5 mg daily Tremor, shuffling gait -concern for parkinsons, outpt follow up with pcp/neuro. wound care: Anterior foot with blood blister noted - unclear etilogy - paint with betadine. Recommendations: 1. Turn and Reposition every 2 hours and as needed for patient comfort.? Use pillows or wedges to support off loading positions. 2. Off Load all bony prominences with use of pillows and heel boots if needed.? Apply Preventative foams where needed. ? 3. Monitor for incontinence and moisture control, use barrier creams when needed for prevention and treatment. 4. Provide adequate and supplemental nutrition.? 5. When applicable maintain blood glucose levels per Providers order. 6. Left Great Toe - Elevate lower Legs - Cleanse with Betadine allow to dry Daily. Leave open to air may cover with dry gauze but do not use foam dressing. Patient educated to wear shoes when ambulating. overweight: advised to lose weight ,cut down calories. DVT prophylaxis- heparin full code Patient requires inpatient stay -need placement for antibiotics /infusion center will review if he will able to get iv antibiotics outpatient. Quality Stroke Does the patient have a stroke diagnosis?: No VTE Prior VTE?: No VTE Risk Level:: Medical - moderate - high VTE Device Contraindication: Treatment Not Indicated VTE Drug Contraindication: N/A - Med Ordered
[2023-07-17 11:09] LABS: Glucose, Whole Blood 161 mg/dL (60-115)
[2023-07-17] MEDS: Insulin Lispro 100 UNIT/ML 3 ML VIAL SUBCUT ×3 (11:43→21:02)
[2023-07-17 15:18] VITALS: BP 156/75; PULSE 80; RESP 18; TEMP 36.1; O2SAT 97
[2023-07-17 15:33] LABS: Glucose, Whole Blood 216 mg/dL (60-115)
[2023-07-17 19:05] VITALS: BP 150/73; PULSE 79; RESP 18; TEMP 36.1; O2SAT 96
[2023-07-17 20:01] LABS: Glucose, Whole Blood 257 mg/dL (60-115)
[2023-07-17] MEDS: Insulin Glargine,Hum.rec.anlog 100 UNIT/ML 10 ML VIAL 22 UNIT SUBCUT (21:02)
[2023-07-18 03:49] VITALS: BP 148/70; PULSE 69; RESP 16; TEMP 36.2; O2SAT 98
[2023-07-18] MEDS: Heparin Sodium,Porcine 5,000 UNIT/ML VIAL 5000 UNIT SUBCUT ×2 (04:28→14:05)
[2023-07-18 07:05] LABS: Creatinine Clr Calc Pharmacy 105.6; Estimated Glomerular Filt Rate > 60
[2023-07-18 07:22] VITALS: BP 139/71; PULSE 69; RESP 18; TEMP 36.8; O2SAT 98
[2023-07-18 07:28] LABS: Glucose, Whole Blood 88 mg/dL (60-115)
[2023-07-18 08:01] VITALS: BP 139/71
[2023-07-18] MEDS: amLODIPine Besylate 5 MG TABLET PO (08:01)
[2023-07-18] MEDS: Multivitamin TABLET 1 TAB PO (08:01)
[2023-07-18] MEDS: 0.9 % Sodium Chloride Flush 3 ML SYRINGE IVFLUSH ×3 (08:02→16:45)
[2023-07-18 11:10] LABS: Glucose, Whole Blood 138 mg/dL (60-115)
--- NOTE | 2023-07-18 13:45 | PM.CNGS ---
History of Present Illness Consult details Consult date: 07/18/23 Reason for consult: wound care Narrative: Very pleasant 63-year-old gentleman presents for evaluation regarding nonhealing left great toe ulcer. He was admitted to the hospital with uncontrolled diabetes and noted to have this left great toe ulcer. He reports that he is a nonsmoker. This has been going on for few months. He now presents to us for evaluation. Review of Systems Review of Systems: Yes all other systems are reviewed and are negative Constitutional: Constitutional: Reports no additional constitutional complaints ENT: Reports Normal hearing present Cardiovascular: Cardiovascular: Denies chest pain, Denies chest pain at rest, Denies chest pain with activity and Denies pedal edema Respiratory: Respiratory: Denies cough Gastrointestinal: Gastrointestinal: Denies abdominal pain Musculoskeletal: Musculoskeletal: Denies abnormal gait, Denies muscle cramps and Denies radiating pain into limb Integumentary/Breasts: Skin/Breast: Denies skin ulcer and Denies wounds Neurologic: Reports Normal hearing present and Denies abnormal gait Psychiatric: Psychiatric: Reports no additional psychiatric complaints PMFSH Past Medical History Medical History Anxiety HTN (hypertension) Type 2 diabetes mellitus Family History Family history: reviewed and not pertinent Social History Social History Household Members: Children Housing: Apartment Do you presently have visiting nurse or other home services: No Alcohol intake: never Patient Tobacco Use Status: Never used Tobacco Smoked in Last 30 Days: No Use of substances other than those prescribed or required for medical reasons: No Currently Displaying Signs/Symptoms of Drug Intoxication Withdrawal: No Have you been hit, kicked, punched, or otherwise hurt by someone within the past year? If so, by whom?: No Do you feel safe in your current relationship?: No Current Relationship Is there a partner from a previous relationship who is making you feel unsafe now?: No Are you made to feel afraid or neglected: No Advance Directives: No Advance Directives Information Provided: Yes Do you have a plan to hurt others: No Plan Recently lost weight without trying: No How much weight loss: Not applicable Eating poorly because of decreased appetite: No Nutrition screen score: 0 Nutrition Risks: No Nutritional Risk Poor oral hygiene: No Meds Allergies Allergy/AdvReac Type Severity Reaction Status Date / Time No Known Allergies Allergy Verified 07/11/23 11:51 Active Medications: Current Medications Acetaminophen (Acetaminophen 325 Mg Tablet) 650 mg PO Q6H PRN PRN Reason: Fever Amlodipine Besylate (Amlodipine Besylate 5 Mg Tablet) 5 mg PO DAILY [facility]; Protocol Last Admin: 07/18/23 08:01 Dose: 5 mg Calcium Carbonate (Calcium Carbonate 750 Mg Tab.Chew) 750 mg PO Q6H PRN PRN Reason: Heartburn Glucose (Glucose Gel 15 Gm Gel..Gram.) 15 gm PO Q15M PRN; Protocol PRN Reason: per Hypoglycemia Standing Ord. Heparin Sodium (Porcine) (Heparin Sodium,Porcine 5,000 Unit/Ml Vial) 5,000 unit SUBCUT Q12H [facility] Last Admin: 07/18/23 04:28 Dose: 5,000 unit Dextrose (D10) 250 mls @ 750 mls/hr IV Q15M PRN; Protocol PRN Reason: per Hypoglycemia Standing Ord. Meropenem 1 gm/ Sodium (Chloride) 100 mls @ 200 mls/hr IV Q8H [facility] Last Infusion: 07/18/23 08:59 Dose: Infused Insulin Glargine (Insulin Glargine,Hum.Rec.Anlog 100 Unit/Ml 10 Ml Vial) 22 unit SUBCUT BEDTIME [facility] Last Admin: 07/17/23 21:02 Dose: 22 unit Insulin Human Lispro (Insulin Lispro 100 Unit/Ml 3 Ml Vial) 0 unit SUBCUT QIDACHS [facility]; Protocol Last Admin: 07/18/23 11:13 Dose: Not Given Magnesium Hydroxide (Milk Of Magnesia 30 Ml Oral.Susp) 30 ml PO DAILY PRN PRN Reason: Constipation Melatonin (Melatonin 3 Mg Tablet) 6 mg PO BEDTIME PRN PRN Reason: Insomnia Multivitamins/Vitamin C (Multivitamin Tablet) 1 tab PO DAILY [facility] Last Admin: 07/18/23 08:01 Dose: 1 tab Polyethylene Glycol (Polyethylene Glycol 3350 17 Gm Powd.Pack) 17 gm PO DAILY PRN PRN Reason: Constipation Sodium Chloride (0.9 % Sodium Chloride Flush 3 Ml Syringe) 3 ml IVFLUSH QSHIFT [facility] Last Admin: 07/18/23 08:02 Dose: 3 ml Home Medications ?Medication ?Instructions ?Recorded ?Confirmed ?Last Taken ?Type metformin 1,000 mg tablet 1,000 mg PO BID 07/11/23 07/11/23 07/10/23 History multivitamin 1 tab PO DAILY 07/11/23 07/11/23 07/10/23 History Physical Exam Vital Signs: Vital Signs: Last Vital Signs Temp 98.2 F 07/18/23 07:22 Pulse 69 07/18/23 07:22 Resp 18 07/18/23 07:22 BP 139/71 07/18/23 08:01 Pulse Ox 98 07/18/23 07:22 O2 Del Method Room Air 07/18/23 07:22 BMI result Body Mass Index 31.0 Const: General: cooperative, healthy appearing and comfortable Orientation/consciousness: oriented to person, oriented to place and oriented to time HEENT: Head: Yes normal to inspection Neck: Neck: Yes normal visual inspection Carotids: no bruits Chest: Chest palpation & inspection: normal inspection of the chest Resp: Effort & Inspection: normal respiratory effort and able to speak in complete sentences Auscultation: clear to auscultation bilaterally, no crackles, no rales, no rhonchi and no wheezes Cardio: Other: Left palpable DP Rate: regular rate Rhythm: regular rhythm Heart sounds: S1 normal heart sound present and S2 normal heart sound present Bruits: no carotid bruits Peripheral pulses: Peripheral pulses 2+ throughout GI: Inspection: Yes normal to inspection Skin: Other: Left great toe plantar aspect dry eschar penetrating right down to bone Wounds: no wounds Hair: normal Neuro: General: oriented to person, oriented to place and oriented to time Cranial nerves: Yes CN's II-XII intact bilaterally and Yes Normal hearing present Cognition (Neuro): normal cognition Motor exam (neuro): 5/5 motor strength present throughout Extrem: Other: venous exam: No significant superficial varicosities or spider telangiectasias, minimal edema General: No clubbing, No cyanosis and No edema Psych: Appearance: grossly normal Mental Status: mental status grossly normal Speech and movement: Normal speech and movement present Results Labs 07/12/23 05:30 07/18/23 06:02 Labs: Abnormal lab results 07/17/23 07/17/23 07/18/23 Range/Units 15:27 19:56 11:06 POC Glucose 216 H 257 H 138 H (60-115) mg/dL BMP 07/18/23 06:02 Creatinine 0.74 Urine 07/11/23 Range/Units 15:03 Urine Color Yellow Urine Appearance Clear Urine pH 5.5 (5.0-9.0) Ur Specific [place] 1.025 (1.005-1.025) Urine Protein 100 (2+) H (Neg-Trace) mg/dL Urine Glucose (UA) >=1000 H (Negative) mg/dL All other labs normal. Assessment and Plan (1) Osteomyelitis of great toe of left foot: Status: Acute Plan In short patient has a diabetic left great toe ulcer. As there is no underlying tissue and it penetrates right down to bone the patient will be best served with a left great toe amputation. I would like a some antibiotics to be given for few days for the overall cellulitis and inflammation to decrease to better demarcate the level of amputation. We will continue to follow him while he is inpatient with you. Hopefully will be able to amputate his left great toe later this week. Thank you for allowing us to assist in his care. Procedures Date of Service Date of Service: 07/18/23
--- NOTE | 2023-07-18 13:45 | HO.PM.IMPN ---
Subjective Subjective Date of Service: 07/18/23 Interval History: dm foot ulcer Review of Systems no new c/o Physical Exam Vital Signs: Vital Signs: Last Vital Signs Temp 98.2 F 07/18/23 07:22 Pulse 69 07/18/23 07:22 Resp 18 07/18/23 07:22 BP 139/71 07/18/23 08:01 Pulse Ox 98 07/18/23 07:22 O2 Del Method Room Air 07/18/23 07:22 BMI result Body Mass Index 31.0 Appearance: Alert.? Oriented X3.? cvs: rrr, [id number] . res: clear to auscultation ,no rhonchii or wheezing abd: no rebound or guarding ,nt, bs present. ext pulses present , no cyanosis. ulcer plantar surface L great toe with faint erythema of the L great toe -seems similar . neuro: axo3 , nonfocal. Objective Data Active Medications Acetaminophen (Acetaminophen 325 Mg Tablet) 650 mg PO Q6H PRN PRN Reason: Fever Amlodipine Besylate (Amlodipine Besylate 5 Mg Tablet) 5 mg PO DAILY [facility]; Protocol Last Admin: 07/18/23 08:01 Dose: 5 mg Documented By: GHISLAINE Calcium Carbonate (Calcium Carbonate 750 Mg Tab.Chew) 750 mg PO Q6H PRN PRN Reason: Heartburn Glucose (Glucose Gel 15 Gm Gel..Gram.) 15 gm PO Q15M PRN; Protocol PRN Reason: per Hypoglycemia Standing Ord. Heparin Sodium (Porcine) (Heparin Sodium,Porcine 5,000 Unit/Ml Vial) 5,000 unit SUBCUT Q12H [facility] Last Admin: 07/18/23 04:28 Dose: 5,000 unit Documented By: JESUS MANUEL Dextrose (D10) 250 mls @ 750 mls/hr IV Q15M PRN; Protocol PRN Reason: per Hypoglycemia Standing Ord. Meropenem 1 gm/ Sodium (Chloride) 100 mls @ 200 mls/hr IV Q8H [facility] Last Infusion: 07/18/23 08:59 Dose: Infused Documented By: GHISLAINE Insulin Glargine (Insulin Glargine,Hum.Rec.Anlog 100 Unit/Ml 10 Ml Vial) 22 unit SUBCUT BEDTIME [facility] Last Admin: 07/17/23 21:02 Dose: 22 unit Documented By: HO.BEIT Insulin Human Lispro (Insulin Lispro 100 Unit/Ml 3 Ml Vial) 0 unit SUBCUT QIDACHS [facility]; Protocol Last Admin: 07/18/23 11:13 Dose: Not Given Documented By: GHISLAINE Non-Admin Reason: No Insulin Coverage Magnesium Hydroxide (Milk Of Magnesia 30 Ml Oral.Susp) 30 ml PO DAILY PRN PRN Reason: Constipation Melatonin (Melatonin 3 Mg Tablet) 6 mg PO BEDTIME PRN PRN Reason: Insomnia Multivitamins/Vitamin C (Multivitamin Tablet) 1 tab PO DAILY [facility] Last Admin: 07/18/23 08:01 Dose: 1 tab Documented By: GHISLAINE Polyethylene Glycol (Polyethylene Glycol 3350 17 Gm Powd.Pack) 17 gm PO DAILY PRN PRN Reason: Constipation Sodium Chloride (0.9 % Sodium Chloride Flush 3 Ml Syringe) 3 ml IVFLUSH QSHIFT [facility] Last Admin: 07/18/23 08:02 Dose: 3 ml Documented By: GHISLAINE Labs 07/12/23 05:30 07/18/23 06:02 Labs: Laboratory Results - last 24 hr 07/17/23 07/17/23 07/18/23 15:27 19:56 06:02 Estim Creat Clear Calc 105.6 Estimated GFR > 60 POC Glucose 216 H 257 H 07/18/23 07/18/23 07:24 11:06 Estim Creat Clear Calc Estimated GFR POC Glucose 88 138 H Assessment and Plan (1) Uncontrolled type 2 diabetes mellitus with hyperglycemia: Status: Acute (2) Osteomyelitis of great toe of left foot: Status: Acute Assessment and Plan: 63-year-old male with history of ejn-[id number]-ycndmxtwn type 2 diabetes, anxiety, chronic tremor who has poor outpatient follow-up admitted for further management of acute osteomyelitis of the left great toe acute osteomyelitis of the left great toe with nonhealing stage II ulcer of the left great toe related to uncontrolled type 2 diabetes x-ray of the left foot shows high suspicion for osteomyelitis. ESR 50, CRP 4.19.,MRI ordered for further evaluation of osteomyelitis arterial Doppler left lower extremity -no evidence of any hemodynamically significant lower extremity arterial disease. mri: Soft tissue wound along the plantar/medial aspect of the 1st distal phalanx. There is edema/cellulitis in the soft tissues. No abscess is seen. Abnormal findings in the 1st distal phalanx consistent with osteomyelitis. plan: blood cultures negative @48hrs continue IV vancomycin and Zosyn (initiated 07/10)-seen by ID -will switch to meropenem( on 07/15/23),pt eval vascular eval for eval-foot ulcer . dm type 2 diabetes - fs improving A1c 11.3% adjusted 20 units Lantus nightly POC glucose, diabetic diet, adjusted humalog on sliding scale hypertension continue amlodipine 5 mg daily Tremor, shuffling gait -concern for parkinsons, outpt follow up with pcp/neuro. wound care: Anterior foot with blood blister noted - unclear etilogy - paint with betadine. Recommendations: 1. Turn and Reposition every 2 hours and as needed for patient comfort.? Use pillows or wedges to support off loading positions. 2. Off Load all bony prominences with use of pillows and heel boots if needed.? Apply Preventative foams where needed. ? 3. Monitor for incontinence and moisture control, use barrier creams when needed for prevention and treatment. 4. Provide adequate and supplemental nutrition.? 5. When applicable maintain blood glucose levels per Providers order. 6. Left Great Toe - Elevate lower Legs - Cleanse with Betadine allow to dry Daily. Leave open to air may cover with dry gauze but do not use foam dressing. Patient educated to wear shoes when ambulating. overweight: advised to lose weight ,cut down calories. DVT prophylaxis- heparin full code Patient requires inpatient stay -need placement for antibiotics /infusion center will review if he will able to get iv antibiotics outpatient. Quality Stroke Does the patient have a stroke diagnosis?: No VTE Prior VTE?: No VTE Risk Level:: Medical - moderate - high VTE Device Contraindication: Treatment Not Indicated VTE Drug Contraindication: N/A - Med Ordered
--- NOTE | 2023-07-18 14:10 | MHC.CM.PN ---
CM ATTEMPTED TO CALL INFUSION CENTER TO DETERMINE IF PT WOULD BE ABLE TO GET HIS MEDS THERE OUTPATIENT LINE BUSY
[2023-07-18 15:41] VITALS: BP 121/71; PULSE 92; RESP 18; TEMP 36.1; O2SAT 99
[2023-07-18 16:24] LABS: Glucose, Whole Blood 162 mg/dL (60-115)
[2023-07-18] MEDS: Insulin Lispro 100 UNIT/ML 3 ML VIAL SUBCUT ×2 (16:39→20:33)
[2023-07-18 19:01] VITALS: BP 151/80; PULSE 82; RESP 18; TEMP 36.5; O2SAT 98
[2023-07-18 20:21] LABS: Glucose, Whole Blood 170 mg/dL (60-115)
[2023-07-18] MEDS: Insulin Glargine,Hum.rec.anlog 100 UNIT/ML 10 ML VIAL 22 UNIT SUBCUT (20:33)
[2023-07-19] MEDS: 0.9 % Sodium Chloride Flush 3 ML SYRINGE IVFLUSH ×3 (00:50→15:11)
[2023-07-19] MEDS: Heparin Sodium,Porcine 5,000 UNIT/ML VIAL 5000 UNIT SUBCUT ×2 (03:17→15:11)
[2023-07-19 03:23] VITALS: BP 140/83; PULSE 78; RESP 18; TEMP 36.5; O2SAT 98
[2023-07-19 07:19] LABS: Glucose, Whole Blood 101 mg/dL (60-115)
[2023-07-19 08:00] VITALS: BP 149/77; PULSE 79; RESP 18; TEMP 36.2; O2SAT 97
[2023-07-19 09:06] VITALS: BP 149/77
[2023-07-19] MEDS: Multivitamin TABLET 1 TAB PO (09:06)
[2023-07-19] MEDS: amLODIPine Besylate 5 MG TABLET PO (09:06)
[2023-07-19 10:37] LABS: Creatinine Clr Calc Pharmacy 95.3; Estimated Glomerular Filt Rate > 60
[2023-07-19 11:06] LABS: Glucose, Whole Blood 122 mg/dL (60-115)
--- NOTE | 2023-07-19 12:02 | P.PNIM_ITS ---
Subjective Subjective Date of Service: 07/19/23 Interval History: no complaints Physical Exam 2 Vital Signs: Vital Signs: Last Vital Signs Temp 97.2 F 07/19/23 08:00 Pulse 79 07/19/23 08:00 Resp 18 07/19/23 08:00 BP 149/77 H 07/19/23 09:06 Pulse Ox 97 07/19/23 08:00 O2 Del Method Room Air 07/19/23 08:00 BMI result Body Mass Index 31.0 Appearance: Alert.? Oriented X3.? cvs: rrr, [id number] . res: clear to auscultation ,no rhonchii or wheezing abd: no rebound or guarding ,nt, bs present. ext pulses present , no cyanosis. ulcer plantar surface L great toe with faint erythema of the L great toe -seems similar . neuro: axo3 , nonfocal. Objective Data Active Medications Acetaminophen (Acetaminophen 325 Mg Tablet) 650 mg PO Q6H PRN PRN Reason: Fever Amlodipine Besylate (Amlodipine Besylate 5 Mg Tablet) 5 mg PO DAILY [facility]; Protocol Last Admin: 07/19/23 09:06 Dose: 5 mg Documented By: KAILEE Calcium Carbonate (Calcium Carbonate 750 Mg Tab.Chew) 750 mg PO Q6H PRN PRN Reason: Heartburn Glucose (Glucose Gel 15 Gm Gel..Gram.) 15 gm PO Q15M PRN; Protocol PRN Reason: per Hypoglycemia Standing Ord. Heparin Sodium (Porcine) (Heparin Sodium,Porcine 5,000 Unit/Ml Vial) 5,000 unit SUBCUT Q12H [facility] Last Admin: 07/19/23 03:17 Dose: 5,000 unit Documented By: KATYA Dextrose (D10) 250 mls @ 750 mls/hr IV Q15M PRN; Protocol PRN Reason: per Hypoglycemia Standing Ord. Meropenem 1 gm/ Sodium (Chloride) 100 mls @ 200 mls/hr IV Q8H [facility] Last Infusion: 07/19/23 09:56 Dose: Infused Documented By: KAILEE Insulin Glargine (Insulin Glargine,Hum.Rec.Anlog 100 Unit/Ml 10 Ml Vial) 22 unit SUBCUT BEDTIME [facility] Last Admin: 07/18/23 20:33 Dose: 22 unit Documented By: SANDRO Insulin Human Lispro (Insulin Lispro 100 Unit/Ml 3 Ml Vial) 0 unit SUBCUT QIDACHS [facility]; Protocol Last Admin: 07/19/23 11:18 Dose: Not Given Documented By: KAILEE Non-Admin Reason: No Insulin Coverage Magnesium Hydroxide (Milk Of Magnesia 30 Ml Oral.Susp) 30 ml PO DAILY PRN PRN Reason: Constipation Melatonin (Melatonin 3 Mg Tablet) 6 mg PO BEDTIME PRN PRN Reason: Insomnia Multivitamins/Vitamin C (Multivitamin Tablet) 1 tab PO DAILY [facility] Last Admin: 07/19/23 09:06 Dose: 1 tab Documented By: KAILEE Polyethylene Glycol (Polyethylene Glycol 3350 17 Gm Powd.Pack) 17 gm PO DAILY PRN PRN Reason: Constipation Sodium Chloride (0.9 % Sodium Chloride Flush 3 Ml Syringe) 3 ml IVFLUSH QSHIFT [facility] Last Admin: 07/19/23 08:58 Dose: 3 ml Documented By: KAILEE Labs 07/12/23 05:30 07/19/23 05:15 Labs: Laboratory Results - last 24 hr 07/18/23 07/18/23 07/19/23 16:13 20:08 05:15 Hold Purple Top SEE NOTE Estim Creat Clear Calc 95.3 Estimated GFR > 60 POC Glucose 162 H 170 H 07/19/23 07/19/23 07:04 10:51 Hold Purple Top Estim Creat Clear Calc Estimated GFR POC Glucose 101 122 H Assessment and Plan (1) Uncontrolled type 2 diabetes mellitus with hyperglycemia: Status: Acute (2) Osteomyelitis of great toe of left foot: Status: Acute Assessment and Plan: 63M PMH [id number]-lvqycxmft type 2 diabetes, anxiety, chronic tremor who has poor outpatient presented for further management of acute osteomyelitis of the left great toe acute osteomyelitis of the left great toe with nonhealing stage II ulcer of the left great toe related to uncontrolled type 2 diabetes arterial Doppler left lower extremity -no evidence of any hemodynamically significant lower extremity arterial disease. continue iv meropenem, plan for amputation 07/20/23 dm type 2 diabetes - with hyperglycemia fs improving A1c 11.3% continue basal bolus insulin hypertension continue amlodipine 5 mg daily Tremor, shuffling gait concern for parkinsons, outpt follow up with pcp/neuro. obesity advised to lose weight ,cut down calories. DVT prophylaxis- heparin sq full code reason for continued hospitalization:plan for amputation Quality Stroke Does the patient have a stroke diagnosis?: No VTE Prior VTE?: No VTE Risk Level:: Medical - moderate - high VTE Device Contraindication: Treatment Not Indicated VTE Drug Contraindication: N/A - Med Ordered
--- NOTE | 2023-07-19 13:55 | HO.VASCPN ---
Subjective Subjective Date of Service: 07/19/23 Patient reports: no new complaints and feels better Interval history: Very pleasant 63-year-old gentleman presents for follow-up evaluation regarding his left great toe. Continues to remain nonhealing. No significant changes since his last visit. Physical Exam Vital Signs: Vital Signs: Last Vital Signs Temp 97.2 F 07/19/23 08:00 Pulse 79 07/19/23 08:00 Resp 18 07/19/23 08:00 BP 149/77 H 07/19/23 09:06 Pulse Ox 97 07/19/23 08:00 O2 Del Method Room Air 07/19/23 08:00 BMI result Body Mass Index 31.0 Const: General: cooperative, healthy appearing and no acute distress Orientation/consciousness: oriented to person, oriented to place and oriented to time HEENT: Head: Yes normal to inspection Neck: Carotids: no bruits Chest: Chest palpation & inspection: normal inspection of the chest Resp: Effort & Inspection: normal respiratory effort and able to speak in complete sentences Auscultation: clear to auscultation bilaterally Cardio: Rate: regular rate Heart sounds: S1 normal heart sound present and S2 normal heart sound present GI: Inspection: Yes normal to inspection Skin: Other: Left great toe dry eschar no tissue underlying. General skin exam: no rashes or lesions noted Wounds: no wounds Neuro: General: oriented to person, oriented to place, oriented to time and CN's II-XI intact bilaterally Extrem: General: Yes normal to inspection, Yes full ROM and Yes no clubbing, cyanosis or edema Psych: Appearance: grossly normal and well kempt Speech and movement: Normal speech and movement present Affect: normal affect Progress Note: A&P Assessment and plan (1) Osteomyelitis of great toe of left foot: Status: Acute Assessment and Plan: In short patient has nonhealing left great toe ulcer. Will plan for OR for . Risks benefits complications of the procedure were discussed in detail with the patient. He agreed and would like to move forward. Thank you for allowing us to assist in his care. Time Spent With Patient Time: Total time managing care of this patient today ____ minutes. Procedures Date of Service Date of Service: 07/19/23 Quality Stroke Does the patient have a stroke diagnosis?: No VTE Prior VTE?: No VTE Risk Level:: Medical - moderate - high VTE Device Contraindication: Treatment Not Indicated VTE Drug Contraindication: N/A - Med Ordered
[2023-07-19 15:18] VITALS: BP 139/70; PULSE 85; RESP 85; TEMP 36.4; O2SAT 98
[2023-07-19 16:03] LABS: Glucose, Whole Blood 160 mg/dL (60-115)
[2023-07-19] MEDS: Insulin Lispro 100 UNIT/ML 3 ML VIAL SUBCUT ×2 (17:33→21:11)
[2023-07-19 19:10] VITALS: BP 135/72; PULSE 86; RESP 18; TEMP 36.4; O2SAT 97
[2023-07-19 20:07] LABS: Glucose, Whole Blood 194 mg/dL (60-115)
[2023-07-19] MEDS: Insulin Glargine,Hum.rec.anlog 100 UNIT/ML 10 ML VIAL 22 UNIT SUBCUT (21:11)
[2023-07-20] MEDS: 0.9 % Sodium Chloride Flush 3 ML SYRINGE IVFLUSH ×3 (00:37→15:49)
[2023-07-20] MEDS: Heparin Sodium,Porcine 5,000 UNIT/ML VIAL 5000 UNIT SUBCUT ×2 (02:50→14:16)
[2023-07-20 03:19] VITALS: BP 154/79; PULSE 74; RESP 18; TEMP 36.2; O2SAT 97
[2023-07-20 07:03] VITALS: BP 144/73; PULSE 74; RESP 16; TEMP 36.1; O2SAT 94
[2023-07-20 07:21] LABS: Glucose, Whole Blood 109 mg/dL (60-115)
[2023-07-20] MEDS: amLODIPine Besylate 5 MG TABLET PO (08:16)
[2023-07-20] MEDS: Multivitamin TABLET 1 TAB PO (08:16)
--- NOTE | 2023-07-20 10:20 | HO.PM.IMPN ---
Subjective Subjective Date of Service: 07/20/23 Interval History: no complaints Physical Exam Vital Signs: Vital Signs: Last Vital Signs Temp 97.0 F 07/20/23 07:03 Pulse 74 07/20/23 07:03 Resp 16 07/20/23 07:03 BP 144/73 H 07/20/23 07:03 Pulse Ox 94 07/20/23 07:03 O2 Del Method Room Air 07/20/23 07:03 BMI result Body Mass Index 31.0 Const: General: cooperative, healthy appearing and no acute distress Orientation/consciousness: oriented to person, oriented to place and oriented to time HEENT: Head: Yes normal to inspection Neck: Carotids: no bruits Chest: Chest palpation & inspection: normal inspection of the chest Resp: Effort & Inspection: normal respiratory effort and able to speak in complete sentences Auscultation: clear to auscultation bilaterally Cardio: Rate: regular rate Heart sounds: S1 normal heart sound present and S2 normal heart sound present GI: Inspection: Yes normal to inspection Skin: Other: Left great toe dry eschar no tissue underlying. General skin exam: no rashes or lesions noted Wounds: no wounds Neuro: General: oriented to person, oriented to place, oriented to time and CN's II-XI intact bilaterally Extrem: General: Yes normal to inspection, Yes full ROM and Yes no clubbing, cyanosis or edema Psych: Appearance: grossly normal and well kempt Speech and movement: Normal speech and movement present Affect: normal affect Objective Data Active Medications Acetaminophen (Acetaminophen 325 Mg Tablet) 650 mg PO Q6H PRN PRN Reason: Fever Amlodipine Besylate (Amlodipine Besylate 5 Mg Tablet) 5 mg PO DAILY [facility]; Protocol Last Admin: 07/20/23 08:16 Dose: 5 mg Documented By: SANDRO Calcium Carbonate (Calcium Carbonate 750 Mg Tab.Chew) 750 mg PO Q6H PRN PRN Reason: Heartburn Glucose (Glucose Gel 15 Gm Gel..Gram.) 15 gm PO Q15M PRN; Protocol PRN Reason: per Hypoglycemia Standing Ord. Heparin Sodium (Porcine) (Heparin Sodium,Porcine 5,000 Unit/Ml Vial) 5,000 unit SUBCUT Q12H [facility] Last Admin: 07/20/23 02:50 Dose: 5,000 unit Documented By: KATYA Dextrose (D10) 250 mls @ 750 mls/hr IV Q15M PRN; Protocol PRN Reason: per Hypoglycemia Standing Ord. Meropenem 1 gm/ Sodium (Chloride) 100 mls @ 200 mls/hr IV Q8H [facility] Last Infusion: 07/20/23 08:49 Dose: Infused Documented By: SANDRO Insulin Glargine (Insulin Glargine,Hum.Rec.Anlog 100 Unit/Ml 10 Ml Vial) 22 unit SUBCUT BEDTIME [facility] Last Admin: 07/19/23 21:11 Dose: 22 unit Documented By: AURELIA Insulin Human Lispro (Insulin Lispro 100 Unit/Ml 3 Ml Vial) 0 unit SUBCUT QIDACHS [facility]; Protocol Last Admin: 07/20/23 07:45 Dose: Not Given Documented By: SANDRO Non-Admin Reason: No Insulin Coverage Magnesium Hydroxide (Milk Of Magnesia 30 Ml Oral.Susp) 30 ml PO DAILY PRN PRN Reason: Constipation Melatonin (Melatonin 3 Mg Tablet) 6 mg PO BEDTIME PRN PRN Reason: Insomnia Multivitamins/Vitamin C (Multivitamin Tablet) 1 tab PO DAILY [facility] Last Admin: 07/20/23 08:16 Dose: 1 tab Documented By: SANDRO Polyethylene Glycol (Polyethylene Glycol 3350 17 Gm Powd.Pack) 17 gm PO DAILY PRN PRN Reason: Constipation Sodium Chloride (0.9 % Sodium Chloride Flush 3 Ml Syringe) 3 ml IVFLUSH QSHIFT [facility] Last Admin: 07/20/23 08:17 Dose: 3 ml Documented By: SANDRO Labs 07/12/23 05:30 07/19/23 05:15 Labs: Laboratory Results - last 24 hr 07/19/23 07/19/23 07/19/23 05:15 10:51 15:58 Estim Creat Clear Calc 95.3 Estimated GFR > 60 POC Glucose 122 H 160 H 07/19/23 07/20/23 20:04 07:06 Estim Creat Clear Calc Estimated GFR POC Glucose 194 H 109 Assessment and Plan (1) Uncontrolled type 2 diabetes mellitus with hyperglycemia: Status: Acute (2) Osteomyelitis of great toe of left foot: Status: Acute Assessment and Plan: 63M PMH [id number] type 2 diabetes, anxiety, chronic tremor who has poor outpatient presented for further management of acute osteomyelitis of the left great toe acute osteomyelitis of the left great toe with nonhealing stage II ulcer of the left great toe related to uncontrolled type 2 diabetes arterial Doppler left lower extremity -no evidence of any hemodynamically significant lower extremity arterial disease. continue iv meropenem, plan for amputation 07/21/23 dm type 2 diabetes - with hyperglycemia fs improving A1c 11.3% continue basal bolus insulin hypertension continue amlodipine 5 mg daily Tremor, shuffling gait concern for parkinsons, outpt follow up with pcp/neuro. obesity advised to lose weight ,cut down calories. DVT prophylaxis- heparin sq full code reason for continued hospitalization:plan for amputation Quality Stroke Does the patient have a stroke diagnosis?: No VTE Prior VTE?: No VTE Risk Level:: Medical - moderate - high VTE Device Contraindication: Treatment Not Indicated VTE Drug Contraindication: N/A - Med Ordered
[2023-07-20 11:17] LABS: Glucose, Whole Blood 123 mg/dL (60-115)
--- NOTE | 2023-07-20 11:25 | HO.VASCPN ---
Subjective Subjective Date of Service: 07/20/23 Patient reports: no new complaints Interval history: Patient seen and examined. No significant events overnight. Reports pain is fairly well controlled. Now for routine follow-up. Physical Exam Vital Signs: Vital Signs: Last Vital Signs Temp 97.0 F 07/20/23 07:03 Pulse 74 07/20/23 07:03 Resp 16 07/20/23 07:03 BP 144/73 H 07/20/23 07:03 Pulse Ox 94 07/20/23 07:03 O2 Del Method Room Air 07/20/23 07:03 BMI result Body Mass Index 31.0 Const: General: cooperative, healthy appearing and no acute distress Orientation/consciousness: oriented to person, oriented to place and oriented to time HEENT: Head: Yes normal to inspection Neck: Carotids: no bruits Chest: Chest palpation & inspection: normal inspection of the chest Resp: Effort & Inspection: normal respiratory effort and able to speak in complete sentences Auscultation: clear to auscultation bilaterally Cardio: Rate: regular rate Heart sounds: S1 normal heart sound present and S2 normal heart sound present GI: Inspection: Yes normal to inspection Skin: Other: Left great toe nonhealing diabetic ulcer General skin exam: no rashes or lesions noted Wounds: no wounds Neuro: General: oriented to person, oriented to place, oriented to time and CN's II-XI intact bilaterally Extrem: General: Yes normal to inspection, Yes full ROM and Yes no clubbing, cyanosis or edema Psych: Appearance: grossly normal and well kempt Speech and movement: Normal speech and movement present Affect: normal affect Progress Note: A&P Assessment and plan (1) Osteomyelitis of great toe of left foot: Status: Acute Assessment and Plan: In short patient has nonhealing left great toe ulcer with underlying osteomyelitis. The patient will require left great toe amputation. Risks benefits complications were discussed in detail with the patient. He agreed and would like to move forward. Thank you for allowing us to assist in his care. Time Spent With Patient Time: Total time managing care of this patient today ____ minutes. Procedures Date of Service Date of Service: 07/20/23 Quality Stroke Does the patient have a stroke diagnosis?: No VTE Prior VTE?: No VTE Risk Level:: Medical - moderate - high VTE Device Contraindication: Treatment Not Indicated VTE Drug Contraindication: N/A - Med Ordered
[2023-07-20 15:02] VITALS: BP 143/76; PULSE 72; RESP 14; TEMP 36; O2SAT 97
--- NOTE | 2023-07-20 15:52 | MHC.CM.PN ---
per rounds pt to have an amp tomorrow
[2023-07-20] MEDS: Insulin Lispro 100 UNIT/ML 3 ML VIAL SUBCUT ×2 (16:54→20:24)
--- NOTE | 2023-07-20 16:55 | PC.NURSE ---
BS 158 checked by MARILUZ Carter
[2023-07-20 18:13] LABS: Glucose, Whole Blood 158 mg/dL (60-115)
[2023-07-20 19:13] VITALS: BP 140/72; PULSE 79; RESP 14; TEMP 36.2; O2SAT 96
[2023-07-20 20:17] LABS: Glucose, Whole Blood 197 mg/dL (60-115)
[2023-07-20] MEDS: Insulin Glargine,Hum.rec.anlog 100 UNIT/ML 10 ML VIAL 22 UNIT SUBCUT (20:23)
[2023-07-21] VITALS (12 sets, daily range): BP systolic 119–150; BP diastolic 62–89; PULSE 70–96; RESP 12–166; TEMP 36–37.1; O2SAT 95–100
[2023-07-21] MEDS: 0.9 % Sodium Chloride Flush 3 ML SYRINGE IVFLUSH ×3 (00:24→16:40)
[2023-07-21 07:17] LABS: Glucose, Whole Blood 119 mg/dL (60-115)
[2023-07-21] MEDS: amLODIPine Besylate 5 MG TABLET PO (07:57)
[2023-07-21] MEDS: Multivitamin TABLET 1 TAB PO (07:58)
--- NOTE | 2023-07-21 09:22 | HO.PM.IMPN ---
Subjective Subjective Date of Service: 07/21/23 Interval History: no complaints Physical Exam Vital Signs: Vital Signs: Last Vital Signs Temp 97 F 07/21/23 08:00 Pulse 78 07/21/23 08:00 Resp 18 07/21/23 08:00 BP 150/78 H 07/21/23 08:00 Pulse Ox 98 07/21/23 08:00 O2 Del Method Room Air 07/21/23 08:00 BMI result Body Mass Index 31.0 Const: General: cooperative, healthy appearing and no acute distress Orientation/consciousness: oriented to person, oriented to place and oriented to time HEENT: Head: Yes normal to inspection Neck: Carotids: no bruits Chest: Chest palpation & inspection: normal inspection of the chest Resp: Effort & Inspection: normal respiratory effort and able to speak in complete sentences Auscultation: clear to auscultation bilaterally Cardio: Rate: regular rate Heart sounds: S1 normal heart sound present and S2 normal heart sound present GI: Inspection: Yes normal to inspection Skin: Other: Left great toe nonhealing diabetic ulcer General skin exam: no rashes or lesions noted Wounds: no wounds Neuro: General: oriented to person, oriented to place, oriented to time and CN's II-XI intact bilaterally Extrem: General: Yes normal to inspection, Yes full ROM and Yes no clubbing, cyanosis or edema Psych: Appearance: grossly normal and well kempt Speech and movement: Normal speech and movement present Affect: normal affect Objective Data Active Medications Acetaminophen (Acetaminophen 325 Mg Tablet) 650 mg PO Q6H PRN PRN Reason: Fever Amlodipine Besylate (Amlodipine Besylate 5 Mg Tablet) 5 mg PO DAILY [facility]; Protocol Last Admin: 07/21/23 07:57 Dose: 5 mg Documented By: EM Calcium Carbonate (Calcium Carbonate 750 Mg Tab.Chew) 750 mg PO Q6H PRN PRN Reason: Heartburn Glucose (Glucose Gel 15 Gm Gel..Gram.) 15 gm PO Q15M PRN; Protocol PRN Reason: per Hypoglycemia Standing Ord. Heparin Sodium (Porcine) (Heparin Sodium,Porcine 5,000 Unit/Ml Vial) 5,000 unit SUBCUT Q12H [facility] Last Admin: 07/21/23 04:01 Dose: Not Given Documented By: KATYA Non-Admin Reason: pre-op Dextrose (D10) 250 mls @ 750 mls/hr IV Q15M PRN; Protocol PRN Reason: per Hypoglycemia Standing Ord. Meropenem 1 gm/ Sodium (Chloride) 100 mls @ 200 mls/hr IV Q8H [facility] Last Infusion: 07/21/23 08:35 Dose: Infused Documented By: EM Insulin Glargine (Insulin Glargine,Hum.Rec.Anlog 100 Unit/Ml 10 Ml Vial) 22 unit SUBCUT BEDTIME [facility] Last Admin: 07/20/23 20:23 Dose: 22 unit Documented By: AURELIA Insulin Human Lispro (Insulin Lispro 100 Unit/Ml 3 Ml Vial) 0 unit SUBCUT QIDACHS [facility]; Protocol Last Admin: 07/21/23 07:31 Dose: Not Given Documented By: EM Non-Admin Reason: No Insulin Coverage Magnesium Hydroxide (Milk Of Magnesia 30 Ml Oral.Susp) 30 ml PO DAILY PRN PRN Reason: Constipation Melatonin (Melatonin 3 Mg Tablet) 6 mg PO BEDTIME PRN PRN Reason: Insomnia Multivitamins/Vitamin C (Multivitamin Tablet) 1 tab PO DAILY [facility] Last Admin: 07/21/23 07:58 Dose: 1 tab Documented By: EM Polyethylene Glycol (Polyethylene Glycol 3350 17 Gm Powd.Pack) 17 gm PO DAILY PRN PRN Reason: Constipation Sodium Chloride (0.9 % Sodium Chloride Flush 3 Ml Syringe) 3 ml IVFLUSH QSHIFT [facility] Last Admin: 07/21/23 07:58 Dose: 3 ml Documented By: EM Labs 07/12/23 05:30 07/19/23 05:15 Labs: Laboratory Results - last 24 hr 07/20/23 07/20/23 07/20/23 11:13 16:04 20:12 POC Glucose 123 H 158 H 197 H 07/21/23 07:10 POC Glucose 119 H Assessment and Plan (1) Uncontrolled type 2 diabetes mellitus with hyperglycemia: Status: Acute (2) Osteomyelitis of great toe of left foot: Status: Acute Assessment and Plan: 63M PMH [id number] type 2 diabetes, anxiety, chronic tremor who has poor outpatient presented for further management of acute osteomyelitis of the left great toe acute osteomyelitis of the left great toe with nonhealing stage II ulcer of the left great toe related to uncontrolled type 2 diabetes arterial Doppler left lower extremity -no evidence of any hemodynamically significant lower extremity arterial disease. continue iv meropenem, plan for amputation 07/21/23 dm type 2 diabetes - with hyperglycemia fs improving A1c 11.3% continue basal bolus insulin hypertension continue amlodipine 5 mg daily Tremor, shuffling gait concern for parkinsons, outpt follow up with pcp/neuro. obesity advised to lose weight ,cut down calories. DVT prophylaxis- heparin sq full code reason for continued hospitalization:plan for amputation Quality Stroke Does the patient have a stroke diagnosis?: No VTE Prior VTE?: No VTE Risk Level:: Medical - moderate - high VTE Device Contraindication: Treatment Not Indicated VTE Drug Contraindication: N/A - Med Ordered
[2023-07-21 10:54] LABS: Glucose, Whole Blood 121 mg/dL (60-115)
--- NOTE | 2023-07-21 11:00 | PC.NURSE ---
PT B/L IV NOT FLUSHING RED AT SITE NEW IV INSERTED
--- NOTE | 2023-07-21 11:09 | P.CONAN_ITS ---
HPI - Anesthesia Eval Consult details Narrative: 63 yo M admitted with osteomyelitis of left great toe. Scheduled for amputation today. PMF Active Problems Active Problems: All Active Problems Uncontrolled type 2 diabetes mellitus with hyperglycemia (Acute) Osteomyelitis of great toe of left foot (Acute) Diabetic infection of left foot (Acute) Past Medical History Medical History Anxiety HTN (hypertension) Type 2 diabetes mellitus Family History Family history of problems with anesthesia: No Surgical History History of Problems with Anesthesia: No Social History Social History Household Members: Children Housing: Apartment Do you presently have visiting nurse or other home services: No Alcohol intake: never Patient Tobacco Use Status: Never used Tobacco Smoked in Last 30 Days: No Use of substances other than those prescribed or required for medical reasons: No Currently Displaying Signs/Symptoms of Drug Intoxication Withdrawal: No Have you been hit, kicked, punched, or otherwise hurt by someone within the past year? If so, by whom?: No Do you feel safe in your current relationship?: No Current Relationship Is there a partner from a previous relationship who is making you feel unsafe now?: No Are you made to feel afraid or neglected: No Are you DNR?: No Advance Directives: No Advance Directives Information Provided: Yes Do you have a plan to hurt others: No Plan Recently lost weight without trying: No How much weight loss: Not applicable Eating poorly because of decreased appetite: No Nutrition screen score: 0 Nutrition Risks: No Nutritional Risk Poor oral hygiene: No Meds Allergies Allergy/AdvReac Type Severity Reaction Status Date / Time No Known Allergies Allergy Verified 07/11/23 11:51 Active Medications: Current Medications Acetaminophen (Acetaminophen 325 Mg Tablet) 650 mg PO Q6H PRN PRN Reason: Fever Amlodipine Besylate (Amlodipine Besylate 5 Mg Tablet) 5 mg PO DAILY [facility]; Protocol Last Admin: 07/21/23 07:57 Dose: 5 mg Calcium Carbonate (Calcium Carbonate 750 Mg Tab.Chew) 750 mg PO Q6H PRN PRN Reason: Heartburn Glucose (Glucose Gel 15 Gm Gel..Gram.) 15 gm PO Q15M PRN; Protocol PRN Reason: per Hypoglycemia Standing Ord. Heparin Sodium (Porcine) (Heparin Sodium,Porcine 5,000 Unit/Ml Vial) 5,000 unit SUBCUT Q12H [facility] Last Admin: 07/21/23 04:01 Dose: Not Given Dextrose (D10) 250 mls @ 750 mls/hr IV Q15M PRN; Protocol PRN Reason: per Hypoglycemia Standing Ord. Meropenem 1 gm/ Sodium (Chloride) 100 mls @ 200 mls/hr IV Q8H [facility] Last Infusion: 07/21/23 08:35 Dose: Infused Insulin Glargine (Insulin Glargine,Hum.Rec.Anlog 100 Unit/Ml 10 Ml Vial) 22 unit SUBCUT BEDTIME [facility] Last Admin: 07/20/23 20:23 Dose: 22 unit Insulin Human Lispro (Insulin Lispro 100 Unit/Ml 3 Ml Vial) 0 unit SUBCUT QIDACHS [facility]; Protocol Last Admin: 07/21/23 07:31 Dose: Not Given Magnesium Hydroxide (Milk Of Magnesia 30 Ml Oral.Susp) 30 ml PO DAILY PRN PRN Reason: Constipation Melatonin (Melatonin 3 Mg Tablet) 6 mg PO BEDTIME PRN PRN Reason: Insomnia Multivitamins/Vitamin C (Multivitamin Tablet) 1 tab PO DAILY [facility] Last Admin: 07/21/23 07:58 Dose: 1 tab Polyethylene Glycol (Polyethylene Glycol 3350 17 Gm Powd.Pack) 17 gm PO DAILY PRN PRN Reason: Constipation Sodium Chloride (0.9 % Sodium Chloride Flush 3 Ml Syringe) 3 ml IVFLUSH QSHIFT [facility] Last Admin: 07/21/23 07:58 Dose: 3 ml Home Medications ?Medication ?Instructions ?Recorded ?Confirmed ?Last Taken ?Type metformin 1,000 mg tablet 1,000 mg PO BID 07/11/23 07/11/23 07/10/23 History multivitamin 1 tab PO DAILY 07/11/23 07/11/23 07/10/23 History Exam Exam Date and Time: July 21, 2023 1045 Height,Weight and Vital Signs: Height 5 ft 6 in Weight 87 kg Last Vital Signs Temp 98.7 F 07/21/23 10:38 Pulse 93 07/21/23 10:38 Resp 19 07/21/23 10:38 BP 150/89 H 07/21/23 10:38 Pulse Ox 97 07/21/23 10:38 O2 Del Method Room Air 07/21/23 10:38 Pertinent Lab Results Pertinent Lab Results: Laboratory Tests 07/11/23 07/11/23 07/11/23 12:06 15:03 16:30 WBC 9.2 RBC 4.23 L Hgb 12.6 L Hct 37.3 L MCV 88.2 MCH 29.8 MCHC 33.8 RDW 11.9 Plt Count 300 MPV 9.8 Immature Gran % (Auto) 0.4 Neut % (Auto) 74.9 H Lymph % (Auto) 16.3 L [place] % (Auto) 7.2 Eos % (Auto) 0.7 Baso % (Auto) 0.5 Lymph # (Auto) 1.5 [place] # (Auto) 0.7 Eos # (Auto) 0.1 Baso # (Auto) 0.1 Abs Immat Gran (auto) 0.04 H Absolute Neuts (auto) 6.9 Absolute Nucleated RBC 0.000 Nucleated RBC % (auto) 0.0 ESR 51 H Hold Purple Top Sodium 138 Potassium 4.6 Chloride 102 Carbon Dioxide 19 L Anion Gap 22 H BUN 21 H Creatinine 0.89 Estim Creat Clear Calc 88.7 Estimated GFR > 60 POC Glucose Random Glucose 324 H Estimat Average Glucose 278 Hemoglobin A1c % 11.3 H Lactic Acid 2.1 H* Lactic Acid F/U @ 2Hr 1.7 Calcium 9.8 Magnesium 1.8 Total Bilirubin 0.6 Direct Bilirubin 0.2 AST 16 ALT 14 Alkaline Phosphatase 99 C-Reactive Protein 4.19 H B-Natriuretic Peptide 63 Total Protein 7.9 Albumin 4.4 Urine Color Yellow Urine Appearance Clear Urine pH 5.5 Ur Specific Kevin 1.025 Urine Protein 100 (2+) H Urine Glucose (UA) >=1000 H Urine Ketones 15 Urine Blood Negative Urine Nitrite Negative Ur Leukocyte Esterase Negative Urine RBC 0-2 Urine WBC 0-5 Ur Squamous Epith Cells 0-2 Urine Bacteria None Seen Hyaline Casts 0-2 Nasal Screen MRSA (PCR) Nasal S. aureus Screen Nasal MRSA/S.aureus Interp Random Vancomycin 07/11/23 07/11/23 07/12/23 17:48 20:18 05:30 WBC 6.7 RBC 3.80 L Hgb 11.4 L Hct 33.2 L MCV 87.4 MCH 30.0 MCHC 34.3 RDW 12.0 Plt Count 291 MPV 9.5 Immature Gran % (Auto) 0.3 Neut % (Auto) 60.8 Lymph % (Auto) 27.7 [place] % (Auto) 8.2 Eos % (Auto) 2.4 Baso % (Auto) 0.6 Lymph # (Auto) 1.9 [place] # (Auto) 0.6 Eos # (Auto) 0.2 Baso # (Auto) 0.0 Abs Immat Gran (auto) 0.02 Absolute Neuts (auto) 4.1 Absolute Nucleated RBC 0.000 Nucleated RBC % (auto) 0.0 ESR Hold Purple Top Sodium 142 Potassium 4.0 Chloride 107 Carbon Dioxide 24 Anion Gap 15 BUN 12 Creatinine 0.75 Estim Creat Clear Calc 104.2 Estimated GFR > 60 POC Glucose 228 H 246 H Random Glucose 149 H Estimat Average Glucose Hemoglobin A1c % Lactic Acid Lactic Acid F/U @ 2Hr Calcium 9.2 D Magnesium Total Bilirubin Direct Bilirubin AST ALT Alkaline Phosphatase C-Reactive Protein B-Natriuretic Peptide Total Protein Albumin Urine Color Urine Appearance Urine pH Ur Specific Kevin Urine Protein Urine Glucose (UA) Urine Ketones Urine Blood Urine Nitrite Ur Leukocyte Esterase Urine RBC Urine WBC Ur Squamous Epith Cells Urine Bacteria Hyaline Casts Nasal Screen MRSA (PCR) Nasal S. aureus Screen Nasal MRSA/S.aureus Interp Random Vancomycin 07/12/23 07/12/23 07/12/23 07:20 11:29 15:10 WBC RBC Hgb Hct MCV MCH MCHC RDW Plt Count MPV Immature Gran % (Auto) Neut % (Auto) Lymph % (Auto) [place] % (Auto) Eos % (Auto) Baso % (Auto) Lymph # (Auto) [place] # (Auto) Eos # (Auto) Baso # (Auto) Abs Immat Gran (auto) Absolute Neuts (auto) Absolute Nucleated RBC Nucleated RBC % (auto) ESR Hold Purple Top Sodium Potassium Chloride Carbon Dioxide Anion Gap BUN Creatinine Estim Creat Clear Calc Estimated GFR POC Glucose 157 H 223 H Random Glucose Estimat Average Glucose Hemoglobin A1c % Lactic Acid Lactic Acid F/U @ 2Hr Calcium Magnesium Total Bilirubin Direct Bilirubin AST ALT Alkaline Phosphatase C-Reactive Protein B-Natriuretic Peptide Total Protein Albumin Urine Color Urine Appearance Urine pH Ur Specific Kevin Urine Protein Urine Glucose (UA) Urine Ketones Urine Blood Urine Nitrite Ur Leukocyte Esterase Urine RBC Urine WBC Ur Squamous Epith Cells Urine Bacteria Hyaline Casts Nasal Screen MRSA (PCR) Nasal S. aureus Screen Nasal MRSA/S.aureus Interp Random Vancomycin 9.9 L 05/07/12/23 07/13/23 16:06 20:12 06:09 WBC RBC Hgb Hct MCV MCH MCHC RDW Plt Count MPV Immature Gran % (Auto) Neut % (Auto) Lymph % (Auto) [place] % (Auto) Eos % (Auto) Baso % (Auto) Lymph # (Auto) [place] # (Auto) Eos # (Auto) Baso # (Auto) Abs Immat Gran (auto) Absolute Neuts (auto) Absolute Nucleated RBC Nucleated RBC % (auto) ESR Hold Purple Top SEE NOTE Sodium Potassium Chloride Carbon Dioxide Anion Gap BUN Creatinine 0.74 Estim Creat Clear Calc 105.6 Estimated GFR > 60 POC Glucose 172 H 169 H Random Glucose Estimat Average Glucose Hemoglobin A1c % Lactic Acid Lactic Acid F/U @ 2Hr Calcium Magnesium Total Bilirubin Direct Bilirubin AST ALT Alkaline Phosphatase C-Reactive Protein B-Natriuretic Peptide Total Protein Albumin Urine Color Urine Appearance Urine pH Ur Specific Kevin Urine Protein Urine Glucose (UA) Urine Ketones Urine Blood Urine Nitrite Ur Leukocyte Esterase Urine RBC Urine WBC Ur Squamous Epith Cells Urine Bacteria Hyaline Casts Nasal Screen MRSA (PCR) Nasal S. aureus Screen Nasal MRSA/S.aureus Interp Random Vancomycin 07/13/23 07/13/23 07/13/23 07:05 11:18 13:48 WBC RBC Hgb Hct MCV MCH MCHC RDW Plt Count MPV Immature Gran % (Auto) Neut % (Auto) Lymph % (Auto) [place] % (Auto) Eos % (Auto) Baso % (Auto) Lymph # (Auto) [place] # (Auto) Eos # (Auto) Baso # (Auto) Abs Immat Gran (auto) Absolute Neuts (auto) Absolute Nucleated RBC Nucleated RBC % (auto) ESR Hold Purple Top Sodium Potassium Chloride Carbon Dioxide Anion Gap BUN Creatinine Estim Creat Clear Calc Estimated GFR POC Glucose 138 H 368 H* Random Glucose Estimat Average Glucose Hemoglobin A1c % Lactic Acid Lactic Acid F/U @ 2Hr Calcium Magnesium Total Bilirubin Direct Bilirubin AST ALT Alkaline Phosphatase C-Reactive Protein B-Natriuretic Peptide Total Protein Albumin Urine Color Urine Appearance Urine pH Ur Specific Kevin Urine Protein Urine Glucose (UA) Urine Ketones Urine Blood Urine Nitrite Ur Leukocyte Esterase Urine RBC Urine WBC Ur Squamous Epith Cells Urine Bacteria Hyaline Casts Nasal Screen MRSA (PCR) Nasal S. aureus Screen Nasal MRSA/S.aureus Interp Random Vancomycin 13.9 L 07/13/23 07/13/23 07/13/23 16:01 16:25 20:06 WBC RBC Hgb Hct MCV MCH MCHC RDW Plt Count MPV Immature Gran % (Auto) Neut % (Auto) Lymph % (Auto) [place] % (Auto) Eos % (Auto) Baso % (Auto) Lymph # (Auto) [place] # (Auto) Eos # (Auto) Baso # (Auto) Abs Immat Gran (auto) Absolute Neuts (auto) Absolute Nucleated RBC Nucleated RBC % (auto) ESR Hold Purple Top Sodium Potassium Chloride Carbon Dioxide Anion Gap BUN Creatinine Estim Creat Clear Calc Estimated GFR POC Glucose 297 H 249 H Random Glucose Estimat Average Glucose Hemoglobin A1c % Lactic Acid Lactic Acid F/U @ 2Hr Calcium Magnesium Total Bilirubin Direct Bilirubin AST ALT Alkaline Phosphatase C-Reactive Protein B-Natriuretic Peptide Total Protein Albumin Urine Color Urine Appearance Urine pH Ur Specific Kevin Urine Protein Urine Glucose (UA) Urine Ketones Urine Blood Urine Nitrite Ur Leukocyte Esterase Urine RBC Urine WBC Ur Squamous Epith Cells Urine Bacteria Hyaline Casts Nasal Screen MRSA (PCR) NEGATIVE Nasal S. aureus Screen NEGATIVE Nasal MRSA/S.aureus Interp SEE NOTE Random Vancomycin 07/14/23 07/14/23 07/14/23 06:00 07:21 11:08 WBC RBC Hgb Hct MCV MCH MCHC RDW Plt Count MPV Immature Gran % (Auto) Neut % (Auto) Lymph % (Auto) [place] % (Auto) Eos % (Auto) Baso % (Auto) Lymph # (Auto) [place] # (Auto) Eos # (Auto) Baso # (Auto) Abs Immat Gran (auto) Absolute Neuts (auto) Absolute Nucleated RBC Nucleated RBC % (auto) ESR Hold Purple Top Sodium Potassium Chloride Carbon Dioxide Anion Gap BUN Creatinine 0.76 Estim Creat Clear Calc 102.8 Estimated GFR > 60 POC Glucose 103 196 H Random Glucose Estimat Average Glucose Hemoglobin A1c % Lactic Acid Lactic Acid F/U @ 2Hr Calcium Magnesium Total Bilirubin Direct Bilirubin AST ALT Alkaline Phosphatase C-Reactive Protein B-Natriuretic Peptide Total Protein Albumin Urine Color Urine Appearance Urine pH Ur Specific Kevin Urine Protein Urine Glucose (UA) Urine Ketones Urine Blood Urine Nitrite Ur Leukocyte Esterase Urine RBC Urine WBC Ur Squamous Epith Cells Urine Bacteria Hyaline Casts Nasal Screen MRSA (PCR) Nasal S. aureus Screen Nasal MRSA/S.aureus Interp Random Vancomycin 07/14/23 07/14/23 07/14/23 13:05 16:10 20:23 WBC RBC Hgb Hct MCV MCH MCHC RDW Plt Count MPV Immature Gran % (Auto) Neut % (Auto) Lymph % (Auto) [place] % (Auto) Eos % (Auto) Baso % (Auto) Lymph # (Auto) [place] # (Auto) Eos # (Auto) Baso # (Auto) Abs Immat Gran (auto) Absolute Neuts (auto) Absolute Nucleated RBC Nucleated RBC % (auto) ESR Hold Purple Top Sodium Potassium Chloride Carbon Dioxide Anion Gap BUN Creatinine Estim Creat Clear Calc Estimated GFR POC Glucose 258 H 278 H Random Glucose Estimat Average Glucose Hemoglobin A1c % Lactic Acid Lactic Acid F/U @ 2Hr Calcium Magnesium Total Bilirubin Direct Bilirubin AST ALT Alkaline Phosphatase C-Reactive Protein B-Natriuretic Peptide Total Protein Albumin Urine Color Urine Appearance Urine pH Ur Specific Kevin Urine Protein Urine Glucose (UA) Urine Ketones Urine Blood Urine Nitrite Ur Leukocyte Esterase Urine RBC Urine WBC Ur Squamous Epith Cells Urine Bacteria Hyaline Casts Nasal Screen MRSA (PCR) Nasal S. aureus Screen Nasal MRSA/S.aureus Interp Random Vancomycin 16.7 07/15/23 07/15/23 07/15/23 06:12 07:31 11:32 WBC RBC Hgb Hct MCV MCH MCHC RDW Plt Count MPV Immature Gran % (Auto) Neut % (Auto) Lymph % (Auto) [place] % (Auto) Eos % (Auto) Baso % (Auto) Lymph # (Auto) [place] # (Auto) Eos # (Auto) Baso # (Auto) Abs Immat Gran (auto) Absolute Neuts (auto) Absolute Nucleated RBC Nucleated RBC % (auto) ESR Hold Purple Top Sodium Potassium Chloride Carbon Dioxide Anion Gap BUN Creatinine 0.80 Estim Creat Clear Calc 97.6 Estimated GFR > 60 POC Glucose 124 H 176 H Random Glucose Estimat Average Glucose Hemoglobin A1c % Lactic Acid Lactic Acid F/U @ 2Hr Calcium Magnesium Total Bilirubin Direct Bilirubin AST ALT Alkaline Phosphatase C-Reactive Protein B-Natriuretic Peptide Total Protein Albumin Urine Color Urine Appearance Urine pH Ur Specific Kevin Urine Protein Urine Glucose (UA) Urine Ketones Urine Blood Urine Nitrite Ur Leukocyte Esterase Urine RBC Urine WBC Ur Squamous Epith Cells Urine Bacteria Hyaline Casts Nasal Screen MRSA (PCR) Nasal S. aureus Screen Nasal MRSA/S.aureus Interp Random Vancomycin 07/15/23 07/15/23 07/15/23 13:07 16:13 20:19 WBC RBC Hgb Hct MCV MCH MCHC RDW Plt Count MPV Immature Gran % (Auto) Neut % (Auto) Lymph % (Auto) [place] % (Auto) Eos % (Auto) Baso % (Auto) Lymph # (Auto) [place] # (Auto) Eos # (Auto) Baso # (Auto) Abs Immat Gran (auto) Absolute Neuts (auto) Absolute Nucleated RBC Nucleated RBC % (auto) ESR Hold Purple Top Sodium Potassium Chloride Carbon Dioxide Anion Gap BUN Creatinine Estim Creat Clear Calc Estimated GFR POC Glucose 163 H 163 H Random Glucose Estimat Average Glucose Hemoglobin A1c % Lactic Acid Lactic Acid F/U @ 2Hr Calcium Magnesium Total Bilirubin Direct Bilirubin AST ALT Alkaline Phosphatase C-Reactive Protein B-Natriuretic Peptide Total Protein Albumin Urine Color Urine Appearance Urine pH Ur Specific Kevin Urine Protein Urine Glucose (UA) Urine Ketones Urine Blood Urine Nitrite Ur Leukocyte Esterase Urine RBC Urine WBC Ur Squamous Epith Cells Urine Bacteria Hyaline Casts Nasal Screen MRSA (PCR) Nasal S. aureus Screen Nasal MRSA/S.aureus Interp Random Vancomycin 17.3 07/16/23 07/16/23 07/16/23 05:10 07:16 11:04 WBC RBC Hgb Hct MCV MCH MCHC RDW Plt Count MPV Immature Gran % (Auto) Neut % (Auto) Lymph % (Auto) [place] % (Auto) Eos % (Auto) Baso % (Auto) Lymph # (Auto) [place] # (Auto) Eos # (Auto) Baso # (Auto) Abs Immat Gran (auto) Absolute Neuts (auto) Absolute Nucleated RBC Nucleated RBC % (auto) ESR Hold Purple Top SEE NOTE Sodium Potassium Chloride Carbon Dioxide Anion Gap BUN Creatinine 0.74 Estim Creat Clear Calc 105.6 Estimated GFR > 60 POC Glucose 123 H 137 H Random Glucose Estimat Average Glucose Hemoglobin A1c % Lactic Acid Lactic Acid F/U @ 2Hr Calcium Magnesium Total Bilirubin Direct Bilirubin AST ALT Alkaline Phosphatase C-Reactive Protein B-Natriuretic Peptide Total Protein Albumin Urine Color Urine Appearance Urine pH Ur Specific Kevin Urine Protein Urine Glucose (UA) Urine Ketones Urine Blood Urine Nitrite Ur Leukocyte Esterase Urine RBC Urine WBC Ur Squamous Epith Cells Urine Bacteria Hyaline Casts Nasal Screen MRSA (PCR) Nasal S. aureus Screen Nasal MRSA/S.aureus Interp Random Vancomycin 07/16/23 07/16/23 07/17/23 16:11 20:29 05:40 WBC RBC Hgb Hct MCV MCH MCHC RDW Plt Count MPV Immature Gran % (Auto) Neut % (Auto) Lymph % (Auto) [place] % (Auto) Eos % (Auto) Baso % (Auto) Lymph # (Auto) [place] # (Auto) Eos # (Auto) Baso # (Auto) Abs Immat Gran (auto) Absolute Neuts (auto) Absolute Nucleated RBC Nucleated RBC % (auto) ESR Hold Purple Top SEE NOTE Sodium Potassium Chloride Carbon Dioxide Anion Gap BUN Creatinine 0.83 Estim Creat Clear Calc 94.1 Estimated GFR > 60 POC Glucose 159 H 216 H Random Glucose Estimat Average Glucose Hemoglobin A1c % Lactic Acid Lactic Acid F/U @ 2Hr Calcium Magnesium Total Bilirubin Direct Bilirubin AST ALT Alkaline Phosphatase C-Reactive Protein B-Natriuretic Peptide Total Protein Albumin Urine Color Urine Appearance Urine pH Ur Specific Kevin Urine Protein Urine Glucose (UA) Urine Ketones Urine Blood Urine Nitrite Ur Leukocyte Esterase Urine RBC Urine WBC Ur Squamous Epith Cells Urine Bacteria Hyaline Casts Nasal Screen MRSA (PCR) Nasal S. aureus Screen Nasal MRSA/S.aureus Interp Random Vancomycin 07/17/23 07/17/23 07/17/23 07:29 11:06 15:27 WBC RBC Hgb Hct MCV MCH MCHC RDW Plt Count MPV Immature Gran % (Auto) Neut % (Auto) Lymph % (Auto) [place] % (Auto) Eos % (Auto) Baso % (Auto) Lymph # (Auto) [place] # (Auto) Eos # (Auto) Baso # (Auto) Abs Immat Gran (auto) Absolute Neuts (auto) Absolute Nucleated RBC Nucleated RBC % (auto) ESR Hold Purple Top Sodium Potassium Chloride Carbon Dioxide Anion Gap BUN Creatinine Estim Creat Clear Calc Estimated GFR POC Glucose 101 161 H 216 H Random Glucose Estimat Average Glucose Hemoglobin A1c % Lactic Acid Lactic Acid F/U @ 2Hr Calcium Magnesium Total Bilirubin Direct Bilirubin AST ALT Alkaline Phosphatase C-Reactive Protein B-Natriuretic Peptide Total Protein Albumin Urine Color Urine Appearance Urine pH Ur Specific Kevin Urine Protein Urine Glucose (UA) Urine Ketones Urine Blood Urine Nitrite Ur Leukocyte Esterase Urine RBC Urine WBC Ur Squamous Epith Cells Urine Bacteria Hyaline Casts Nasal Screen MRSA (PCR) Nasal S. aureus Screen Nasal MRSA/S.aureus Interp Random Vancomycin 07/17/23 07/18/23 07/18/23 19:56 06:02 07:24 WBC RBC Hgb Hct MCV MCH MCHC RDW Plt Count MPV Immature Gran % (Auto) Neut % (Auto) Lymph % (Auto) [place] % (Auto) Eos % (Auto) Baso % (Auto) Lymph # (Auto) [place] # (Auto) Eos # (Auto) Baso # (Auto) Abs Immat Gran (auto) Absolute Neuts (auto) Absolute Nucleated RBC Nucleated RBC % (auto) ESR Hold Purple Top Sodium Potassium Chloride Carbon Dioxide Anion Gap BUN Creatinine 0.74 Estim Creat Clear Calc 105.6 Estimated GFR > 60 POC Glucose 257 H 88 Random Glucose Estimat Average Glucose Hemoglobin A1c % Lactic Acid Lactic Acid F/U @ 2Hr Calcium Magnesium Total Bilirubin Direct Bilirubin AST ALT Alkaline Phosphatase C-Reactive Protein B-Natriuretic Peptide Total Protein Albumin Urine Color Urine Appearance Urine pH Ur Specific Kevin Urine Protein Urine Glucose (UA) Urine Ketones Urine Blood Urine Nitrite Ur Leukocyte Esterase Urine RBC Urine WBC Ur Squamous Epith Cells Urine Bacteria Hyaline Casts Nasal Screen MRSA (PCR) Nasal S. aureus Screen Nasal MRSA/S.aureus Interp Random Vancomycin 07/18/23 07/18/23 07/18/23 11:06 16:13 20:08 WBC RBC Hgb Hct MCV MCH MCHC RDW Plt Count MPV Immature Gran % (Auto) Neut % (Auto) Lymph % (Auto) [place] % (Auto) Eos % (Auto) Baso % (Auto) Lymph # (Auto) [place] # (Auto) Eos # (Auto) Baso # (Auto) Abs Immat Gran (auto) Absolute Neuts (auto) Absolute Nucleated RBC Nucleated RBC % (auto) ESR Hold Purple Top Sodium Potassium Chloride Carbon Dioxide Anion Gap BUN Creatinine Estim Creat Clear Calc Estimated GFR POC Glucose 138 H 162 H 170 H Random Glucose Estimat Average Glucose Hemoglobin A1c % Lactic Acid Lactic Acid F/U @ 2Hr Calcium Magnesium Total Bilirubin Direct Bilirubin AST ALT Alkaline Phosphatase C-Reactive Protein B-Natriuretic Peptide Total Protein Albumin Urine Color Urine Appearance Urine pH Ur Specific Kevin Urine Protein Urine Glucose (UA) Urine Ketones Urine Blood Urine Nitrite Ur Leukocyte Esterase Urine RBC Urine WBC Ur Squamous Epith Cells Urine Bacteria Hyaline Casts Nasal Screen MRSA (PCR) Nasal S. aureus Screen Nasal MRSA/S.aureus Interp Random Vancomycin 07/19/23 07/19/23 07/19/23 05:15 07:04 10:51 WBC RBC Hgb Hct MCV MCH MCHC RDW Plt Count MPV Immature Gran % (Auto) Neut % (Auto) Lymph % (Auto) [place] % (Auto) Eos % (Auto) Baso % (Auto) Lymph # (Auto) [place] # (Auto) Eos # (Auto) Baso # (Auto) Abs Immat Gran (auto) Absolute Neuts (auto) Absolute Nucleated RBC Nucleated RBC % (auto) ESR Hold Purple Top SEE NOTE Sodium Potassium Chloride Carbon Dioxide Anion Gap BUN Creatinine 0.82 Estim Creat Clear Calc 95.3 Estimated GFR > 60 POC Glucose 101 122 H Random Glucose Estimat Average Glucose Hemoglobin A1c % Lactic Acid Lactic Acid F/U @ 2Hr Calcium Magnesium Total Bilirubin Direct Bilirubin AST ALT Alkaline Phosphatase C-Reactive Protein B-Natriuretic Peptide Total Protein Albumin Urine Color Urine Appearance Urine pH Ur Specific Kevin Urine Protein Urine Glucose (UA) Urine Ketones Urine Blood Urine Nitrite Ur Leukocyte Esterase Urine RBC Urine WBC Ur Squamous Epith Cells Urine Bacteria Hyaline Casts Nasal Screen MRSA (PCR) Nasal S. aureus Screen Nasal MRSA/S.aureus Interp Random Vancomycin 07/19/23 07/19/23 07/20/23 15:58 20:04 07:06 WBC RBC Hgb Hct MCV MCH MCHC RDW Plt Count MPV Immature Gran % (Auto) Neut % (Auto) Lymph % (Auto) [place] % (Auto) Eos % (Auto) Baso % (Auto) Lymph # (Auto) [place] # (Auto) Eos # (Auto) Baso # (Auto) Abs Immat Gran (auto) Absolute Neuts (auto) Absolute Nucleated RBC Nucleated RBC % (auto) ESR Hold Purple Top Sodium Potassium Chloride Carbon Dioxide Anion Gap BUN Creatinine Estim Creat Clear Calc Estimated GFR POC Glucose 160 H 194 H 109 Random Glucose Estimat Average Glucose Hemoglobin A1c % Lactic Acid Lactic Acid F/U @ 2Hr Calcium Magnesium Total Bilirubin Direct Bilirubin AST ALT Alkaline Phosphatase C-Reactive Protein B-Natriuretic Peptide Total Protein Albumin Urine Color Urine Appearance Urine pH Ur Specific Kevin Urine Protein Urine Glucose (UA) Urine Ketones Urine Blood Urine Nitrite Ur Leukocyte Esterase Urine RBC Urine WBC Ur Squamous Epith Cells Urine Bacteria Hyaline Casts Nasal Screen MRSA (PCR) Nasal S. aureus Screen Nasal MRSA/S.aureus Interp Random Vancomycin 07/20/23 07/20/23 07/20/23 11:13 16:04 20:12 WBC RBC Hgb Hct MCV MCH MCHC RDW Plt Count MPV Immature Gran % (Auto) Neut % (Auto) Lymph % (Auto) [place] % (Auto) Eos % (Auto) Baso % (Auto) Lymph # (Auto) [place] # (Auto) Eos # (Auto) Baso # (Auto) Abs Immat Gran (auto) Absolute Neuts (auto) Absolute Nucleated RBC Nucleated RBC % (auto) ESR Hold Purple Top Sodium Potassium Chloride Carbon Dioxide Anion Gap BUN Creatinine Estim Creat Clear Calc Estimated GFR POC Glucose 123 H 158 H 197 H Random Glucose Estimat Average Glucose Hemoglobin A1c % Lactic Acid Lactic Acid F/U @ 2Hr Calcium Magnesium Total Bilirubin Direct Bilirubin AST ALT Alkaline Phosphatase C-Reactive Protein B-Natriuretic Peptide Total Protein Albumin Urine Color Urine Appearance Urine pH Ur Specific Kevin Urine Protein Urine Glucose (UA) Urine Ketones Urine Blood Urine Nitrite Ur Leukocyte Esterase Urine RBC Urine WBC Ur Squamous Epith Cells Urine Bacteria Hyaline Casts Nasal Screen MRSA (PCR) Nasal S. aureus Screen Nasal MRSA/S.aureus Interp Random Vancomycin 07/21/23 07/21/23 07:10 10:26 WBC RBC Hgb Hct MCV MCH MCHC RDW Plt Count MPV Immature Gran % (Auto) Neut % (Auto) Lymph % (Auto) [place] % (Auto) Eos % (Auto) Baso % (Auto) Lymph # (Auto) [place] # (Auto) Eos # (Auto) Baso # (Auto) Abs Immat Gran (auto) Absolute Neuts (auto) Absolute Nucleated RBC Nucleated RBC % (auto) ESR Hold Purple Top Sodium Potassium Chloride Carbon Dioxide Anion Gap BUN Creatinine Estim Creat Clear Calc Estimated GFR POC Glucose 119 H 121 H Random Glucose Estimat Average Glucose Hemoglobin A1c % Lactic Acid Lactic Acid F/U @ 2Hr Calcium Magnesium Total Bilirubin Direct Bilirubin AST ALT Alkaline Phosphatase C-Reactive Protein B-Natriuretic Peptide Total Protein Albumin Urine Color Urine Appearance Urine pH Ur Specific Kevin Urine Protein Urine Glucose (UA) Urine Ketones Urine Blood Urine Nitrite Ur Leukocyte Esterase Urine RBC Urine WBC Ur Squamous Epith Cells Urine Bacteria Hyaline Casts Nasal Screen MRSA (PCR) Nasal S. aureus Screen Nasal MRSA/S.aureus Interp Random Vancomycin Airway Mallampati Class: III TM Dist: >3cm Neck ROM: Full Loose/Missing/Broken Teeth: No (patient denies any loose or broken teeth) Heart: S1S2 Lungs: CTAB Assessment and Plan Assessment Anesthesia Assessment: Anesthesia Plan Discussed and Chart Reviewed Final Anesthetic Review Family History of Problems with Anesthesia: No History of Problems with Anesthesia: No NPO: Yes ASA Class: III Final Preanesthetic Review: No Changes in Pt Med Stat, Meds/Allgs Chart Reviewed, Consent Obtained/Reviewed (license clerk at bedside for translation) and Anes Risks/Benef Reviewed Patient Risk: Intermediate Procedure Risk: Low Anesthetic Plan Anesthetic Plan: GA and Agree w/ Assess. and Plan Disposition: Standard PACU
--- NOTE | 2023-07-21 12:06 | MHC.SHP ---
Pre-Procedural Eval Section A - 24 Hr Update-Section A only Date of Service: 07/21/23 The patient is an INPATIENT: Yes Changes since office visit: Yes Patient answered all questions The patient has been examined within 24 hours of the surgical procedure. The History & Physical has been completed within 30 days and I have reviewed it.: Yes Section B - Complete if H&P > 30 days Chief Complaint: Osteomyelitis Allergies: Allergies Allergy/AdvReac Type Severity Reaction Status Date / Time No Known Allergies Allergy Verified 07/11/23 11:51 Plan I have reviewed the history and physical and performed a pertinent physical examination on my patient. No changes have occurred unless specified. Time Spent With Patient Time: Total time managing care of this patient today ____ minutes.
--- NOTE | 2023-07-21 12:45 | W.PM.OPN ---
Operative Note Operative Note Date of Service: 07/21/23 Narrative: Operative note by [facility] Preoperative diagnosis:Nonhealing left great toe ulcer 2. diabetic foot ulcer Postoperative diagnosis: same Procedure: left great toe amputation Surgeon:Eduardo Munguia M.D. Recreation Superintendent: nisha Anesthesia: general Specimens: 1 Drains: none Estimated blood loss: 10 mL Indications: very pleasant 63-year-old gentleman with a history of diabetic foot ulcer which was proven to be osteomyelitis. There was no underlying tissue. A decision was made to amputate the toe. The patient has signed the informed consent after reviewing risks, complications, benefits, and alternatives previously discussed with the patient. The patient was given the opportunity to ask any additional questions or voice any concerns. All questions were answered to the patient's satisfaction. Procedure in detail: Patient was brought to the operating room prior to which a time-out was called for patient identification and site verification. fishmouth incision was made over the great toe down to the metatarsal head. This was carried all the way around circumferentially around the toe. Using electrocautery we dissected the toe through and removed off in its entirety from the metatarsal head. Once this was removed deep tissue was irrigated thoroughly. Hemostasis was obtained with electrocautery. Deep layer was reapproximated with 2-0 Polysorb superficial layer with 3-0 nylon in a mattress fashion and finally skin was closed with skin clips. Xeroform and a sterile dressing were applied. At the end the case sponge instrument counts were correct. Patient tolerated the procedure well. Returned to recovery with stable vitals. This note is constructed using voice recognition software. While every effort has been made to ensure accuracy, camera engineer errors may have been included. Thank you for allowing me to participate in the care of your patient. Yours sincerely, Eduardo Munguia MD, FACS, R.P.V.I.
[2023-07-21] MEDS: Heparin Sodium,Porcine 5,000 UNIT/ML VIAL 5000 UNIT SUBCUT (14:35)
[2023-07-21 16:33] LABS: Glucose, Whole Blood 123 mg/dL (60-115)
[2023-07-21 19:59] LABS: Glucose, Whole Blood 220 mg/dL (60-115)
[2023-07-21] MEDS: Insulin Glargine,Hum.rec.anlog 100 UNIT/ML 10 ML VIAL 22 UNIT SUBCUT (20:31)
[2023-07-21] MEDS: Insulin Lispro 100 UNIT/ML 3 ML VIAL SUBCUT (20:31)
[2023-07-22] MEDS: 0.9 % Sodium Chloride Flush 3 ML SYRINGE IVFLUSH ×3 (01:20→17:33)
[2023-07-22 03:00] VITALS: BP 136/72; PULSE 88; RESP 16; TEMP 36.1; O2SAT 98
[2023-07-22] MEDS: Heparin Sodium,Porcine 5,000 UNIT/ML VIAL 5000 UNIT SUBCUT ×2 (03:28→14:19)
[2023-07-22 06:26] LABS: Hematocrit 36.5 % (42.0-52.0); Hemoglobin 12.3 g/dl (14.0-18.0); Mean Corpuscular HGB Conc 33.7 g/dl (31.0-36.0); Mean Corpuscular Hemoglobin 29.9 pg (27.0-33.0); Mean Corpuscular Volume 88.8 fL (80.0-98.0); Platelet Count 301 X10*3/uL (160-400); Red Blood Count 4.11 X10*6/uL (4.60-5.80); Red Cell Distribution Width 12.4 % (11.0-16.0)
[2023-07-22 06:42] LABS: Anion Gap 11 (12-20); Blood Urea Nitrogen 15 mg/dL (9-16); Calcium 9.2 mg/dL (8.4-10.2); Carbon Dioxide 26 mmol/L (22-29); Chloride 108 mmol/L (96-108); Creatinine Clr Calc Pharmacy 111.6; Estimated Glomerular Filt Rate > 60; Glucose Fasting 151 mg/dL (60-99); Potassium 4.3 mmol/L (3.3-5.1); Sodium 141 mmol/L (135-145)
[2023-07-22 07:06] VITALS: BP 150/77; PULSE 88; RESP 16; TEMP 36.1; O2SAT 97
[2023-07-22 07:21] LABS: Glucose, Whole Blood 142 mg/dL (60-115)
[2023-07-22 09:16] VITALS: BP 150/77
[2023-07-22] MEDS: Multivitamin TABLET 1 TAB PO (09:16)
[2023-07-22] MEDS: amLODIPine Besylate 5 MG TABLET PO (09:16)
--- NOTE | 2023-07-22 09:25 | HO.PM.IMPN ---
Subjective Subjective Date of Service: 07/22/23 Interval History: no complaints Physical Exam Vital Signs: Vital Signs: Last Vital Signs Temp 96.9 F 07/22/23 07:06 Pulse 88 07/22/23 07:06 Resp 16 07/22/23 07:06 BP 150/77 H 07/22/23 09:16 Pulse Ox 97 07/22/23 07:06 O2 Del Method Room Air 07/22/23 07:06 O2 Flow Rate 5 07/21/23 13:04 BMI result Body Mass Index 31.0 Const: General: cooperative, healthy appearing and no acute distress Orientation/consciousness: oriented to person, oriented to place and oriented to time HEENT: Head: Yes normal to inspection Neck: Carotids: no bruits Chest: Chest palpation & inspection: normal inspection of the chest Resp: Effort & Inspection: normal respiratory effort and able to speak in complete sentences Auscultation: clear to auscultation bilaterally Cardio: Rate: regular rate Heart sounds: S1 normal heart sound present and S2 normal heart sound present GI: Inspection: Yes normal to inspection Skin: Other: Left great toe nonhealing diabetic ulcer General skin exam: no rashes or lesions noted Wounds: no wounds Neuro: General: oriented to person, oriented to place, oriented to time and CN's II-XI intact bilaterally Extrem: General: Yes normal to inspection, Yes full ROM and Yes no clubbing, cyanosis or edema Psych: Appearance: grossly normal and well kempt Speech and movement: Normal speech and movement present Affect: normal affect Objective Data Active Medications Acetaminophen (Acetaminophen 325 Mg Tablet) 650 mg PO Q6H PRN PRN Reason: Fever Amlodipine Besylate (Amlodipine Besylate 5 Mg Tablet) 5 mg PO DAILY [facility]; Protocol Last Admin: 07/22/23 09:16 Dose: 5 mg Documented By: EM Calcium Carbonate (Calcium Carbonate 750 Mg Tab.Chew) 750 mg PO Q6H PRN PRN Reason: Heartburn Glucose (Glucose Gel 15 Gm Gel..Gram.) 15 gm PO Q15M PRN; Protocol PRN Reason: per Hypoglycemia Standing Ord. Haloperidol Lactate (Haloperidol Lactate 5 Mg/Ml Vial) 1 mg IVPUSH ONCE PRN PRN Reason: Nausea and Vomiting Heparin Sodium (Porcine) (Heparin Sodium,Porcine 5,000 Unit/Ml Vial) 5,000 unit SUBCUT Q12H [facility] Last Admin: 07/22/23 03:28 Dose: 5,000 unit Documented By: KATYA Dextrose (D10) 250 mls @ 750 mls/hr IV Q15M PRN; Protocol PRN Reason: per Hypoglycemia Standing Ord. Meropenem 1 gm/ Sodium (Chloride) 100 mls @ 200 mls/hr IV Q8H [facility] Last Admin: 07/22/23 09:16 Dose: 200 mls/hr Documented By: EM Insulin Glargine (Insulin Glargine,Hum.Rec.Anlog 100 Unit/Ml 10 Ml Vial) 22 unit SUBCUT BEDTIME [facility] Last Admin: 07/21/23 20:31 Dose: 22 unit Documented By: SANDRO Insulin Human Lispro (Insulin Lispro 100 Unit/Ml 3 Ml Vial) 0 unit SUBCUT QIDACHS [facility]; Protocol Last Admin: 07/22/23 09:02 Dose: Not Given Documented By: EM Non-Admin Reason: No Insulin Coverage Magnesium Hydroxide (Milk Of Magnesia 30 Ml Oral.Susp) 30 ml PO DAILY PRN PRN Reason: Constipation Melatonin (Melatonin 3 Mg Tablet) 6 mg PO BEDTIME PRN PRN Reason: Insomnia Multivitamins/Vitamin C (Multivitamin Tablet) 1 tab PO DAILY [facility] Last Admin: 07/22/23 09:16 Dose: 1 tab Documented By: EM Polyethylene Glycol (Polyethylene Glycol 3350 17 Gm Powd.Pack) 17 gm PO DAILY PRN PRN Reason: Constipation Sodium Chloride (0.9 % Sodium Chloride Flush 3 Ml Syringe) 3 ml IVFLUSH QSHIFT [facility] Last Admin: 07/22/23 09:16 Dose: 3 ml Documented By: EM Labs 07/22/23 05:12 07/22/23 05:12 Labs: Laboratory Results - last 24 hr 07/21/23 07/21/23 07/21/23 10:26 16:28 19:53 MCV MCH MCHC RDW Plt Count MPV Absolute Nucleated RBC Nucleated RBC % (auto) Anion Gap Estim Creat Clear Calc Estimated GFR POC Glucose 121 H 123 H 220 H Fasting Glucose Calcium 07/22/23 07/22/23 05:12 07:11 MCV 88.8 MCH 29.9 MCHC 33.7 RDW 12.4 Plt Count 301 MPV 10.0 Absolute Nucleated RBC 0.000 Nucleated RBC % (auto) 0.0 Anion Gap 11 L Estim Creat Clear Calc 111.6 Estimated GFR > 60 POC Glucose 142 H Fasting Glucose 151 H Calcium 9.2 Assessment and Plan (1) Uncontrolled type 2 diabetes mellitus with hyperglycemia: Status: Acute (2) Osteomyelitis of great toe of left foot: Status: Acute Assessment and Plan: 63M PMH [id number] type 2 diabetes, anxiety, chronic tremor who has poor outpatient presented for further management of acute osteomyelitis of the left great toe acute osteomyelitis of the left great toe with nonhealing stage II ulcer of the left great toe related to uncontrolled type 2 diabetes arterial Doppler left lower extremity -no evidence of any hemodynamically significant lower extremity arterial disease. s/p 1st toe amp 07/21/23 dm type 2 diabetes - with hyperglycemia fs improving A1c 11.3% continue basal bolus insulin hypertension continue amlodipine 5 mg daily Tremor, shuffling gait concern for parkinsons, outpt follow up with pcp/neuro. obesity advised to lose weight ,cut down calories. DVT prophylaxis- heparin sq full code reason for continued hospitalization:post op monitoring Quality Stroke Does the patient have a stroke diagnosis?: No VTE Prior VTE?: No VTE Risk Level:: Medical - moderate - high VTE Device Contraindication: Treatment Not Indicated VTE Drug Contraindication: N/A - Med Ordered
--- NOTE | 2023-07-22 10:33 | HO.POSTANES ---
Post Anesthesia Evaluation Post Anesthesia Evaluation Date of Service: 07/21/23 Vital Signs: Vital Signs Temp Pulse Resp BP Pulse Ox O2 Del Method 07/22/23 09:16 150/77 H 07/22/23 07:06 96.9 F 88 16 150/77 H 97 Room Air 07/22/23 03:00 96.9 F 88 16 136/72 98 Room Air Anesthesia: General Mental Status: Awake Pain Control: Satisfactory Nausea/Vomiting: None Hydration: Adequate Anesthesia-Related Issues: No Anes. Related Issues
--- NOTE | 2023-07-22 10:47 | P.DS_ITS ---
DS: Providers Provider Date of Service: 07/22/23 Date of admission: 07/11/23 15:01 Primary care physician: MUNA Espinoza Consults: 07/11/23 15:40 Consult to Infectious Diseases Routine Consulting Provider: [facility] Reason for consultation: osteomyelitis 07/11/23 15:43 Consult to Wound Care Routine Reason for consultation: non healing ulcer L great toe 07/18/23 07:17 Consult to Vascular Surgery Routine Consulting Provider: [facility] Reason for consultation: dm foot ulcer /osteomyelitis Has provider been notified: No DS: Diagnosis Discharge Diagnosis (1) Uncontrolled type 2 diabetes mellitus with hyperglycemia: Status: Acute (2) Osteomyelitis of great toe of left foot: Status: Acute DS: Summary Hospital Course Hospital Course: from initial hpi: 63-year-old male with history of uuz-tbxptve-zwcgbdbqy type 2 diabetes, anxiety, chronic tremor who has poor outpatient follow-up presents to the ED accompanied by his son, del, who also assists with history, for evaluation of left foot pain and possible infection of the left great toe. The patient is reporting pain in the left foot ongoing for 2 weeks but has not been checking his feet. His sudden noticed a black discoloration and faint erythema of the left great toe 2 days ago. Denies any fevers, chills, purulent drainage. He denies any history of similar symptoms. On arrival, vital stable though hypertensive to 170/83 on admission. Denies known history of hypertension but again has poor outpatient follow-up. He has no leukocytosis. There is a normocytic anemia with H/H 12.6/37.3%. Creatinine 0.89, BUN 21. Electrolyte levels normal except for CO2 19. Glucose 324 with A1c of 11.3%. Lactic acid 2.1. Hepatic function within normal limits. CRP 4.19, ESR 51. Urinalysis unremarkable. X-ray of the right foot with findings highly suspicious for osteomyelitis of the distal phalanx of the great toe. In the ED, given 1 L IV NS and IV Zosyn. Patient will be admitted for further management of osteomyelitis of the left great toe. Denies any history of cigarette smoking. No alcohol or drug use. hospital course: Patient was admitted for acute osteomyelitis of left great toe with nonhealing stage II ulcer of the left great toe related to uncontrolled type 2 diabetes. Arterial Doppler showed no evidence of hemodynamically significant lower extremity arterial disease. He was treated with IV meropenem and underwent 1st toe amputation on 07/21/2023. Postop period was unremarkable. For diabetes with hyperglycemia was carried on basal bolus insulin. For hypertension was continue amlodipine. For tremor and shuffling gait there is a concern Parkinson's and should follow up outpatient with neuro. For obesity weight loss recommended. Patient will be discharged home and continue with local care. No need for ongoing antibiotics. Time Attestation Discharge Coordination Time (in mins): 35 Quality: Safe Use of Opioids Does Pt have an Active Cancer Diagnosis on the Problem List?: No Quality: Stroke Does the patient have a stroke diagnosis?: No Physical Exam Vital Signs: Vital Signs: Last Vital Signs Temp 96.9 F 07/22/23 07:06 Pulse 88 07/22/23 07:06 Resp 16 07/22/23 07:06 BP 150/77 H 07/22/23 09:16 Pulse Ox 97 07/22/23 07:06 O2 Del Method Room Air 07/22/23 07:06 O2 Flow Rate 5 07/21/23 13:04 BMI result Body Mass Index 31.0 Const: General: cooperative, healthy appearing and no acute distress Orientation/consciousness: oriented to person, oriented to place and oriented to time HEENT: Head: Yes normal to inspection Neck: Carotids: no bruits Chest: Chest palpation & inspection: normal inspection of the chest Resp: Effort & Inspection: normal respiratory effort and able to speak in complete sentences Auscultation: clear to auscultation bilaterally Cardio: Rate: regular rate Heart sounds: S1 normal heart sound present and S2 normal heart sound present GI: Inspection: Yes normal to inspection Skin: Other: Left great toe nonhealing diabetic ulcer General skin exam: no rashes or lesions noted Wounds: no wounds Neuro: General: oriented to person, oriented to place, oriented to time and CN's II-XI intact bilaterally Extrem: General: Yes normal to inspection, Yes full ROM and Yes no clubbing, cyanosis or edema Psych: Appearance: grossly normal and well kempt Speech and movement: Normal speech and movement present Affect: normal affect DS: Data Data Completed and Pending Pending studies at discharge: Pending at discharge 07/21/23 12:31 Surgical [PTH] Routine Labs on day of discharge: Laboratory Results - last 24 hr 07/21/23 07/21/23 07/21/23 10:26 16:28 19:53 WBC RBC Hgb Hct MCV MCH MCHC RDW Plt Count MPV Absolute Nucleated RBC Nucleated RBC % (auto) Sodium Potassium Chloride Carbon Dioxide Anion Gap BUN Creatinine Estim Creat Clear Calc Estimated GFR POC Glucose 121 H 123 H 220 H Fasting Glucose Calcium 07/22/23 07/22/23 05:12 07:11 WBC 9.0 RBC 4.11 L Hgb 12.3 L Hct 36.5 L MCV 88.8 MCH 29.9 MCHC 33.7 RDW 12.4 Plt Count 301 MPV 10.0 Absolute Nucleated RBC 0.000 Nucleated RBC % (auto) 0.0 Sodium 141 Potassium 4.3 Chloride 108 Carbon Dioxide 26 Anion Gap 11 L BUN 15 Creatinine 0.70 Estim Creat Clear Calc 111.6 Estimated GFR > 60 POC Glucose 142 H Fasting Glucose 151 H Calcium 9.2 Discharge Plan Discharge Anticipated Discharge Date/Time: 07/22/23 10:38 Patient Disposition: Home, Self-Care Discharge Diagnosis: dfu om Referrals: Eduardo Munguia MD [Physician] - 2 Weeks Karin Balderas FNP [Primary Care Provider] - 08/24/23 9:45 am (You have a follow up appointment scheduled. If you can not make this appointment call office to reschedule. ) Discharge Medications: New oxycodone 5 mg tablet 5 mg PO Q6H PRN (Reason: moderate pain (scale score 5-6)) Qty: 14 0RF Rx Instructions: Partial Fill upon patient request. Continued multivitamin Tablet 1 tab PO DAILY metformin 1,000 mg tablet 1,000 mg PO BID Discharge Orders: Discharge Order (Routine); Ordered 07/22/23 Ordered By: Des Lassiter Diet: Advance to usual diet Activity on Discharge: As tolerated Stand Alone Forms: Patient Portal Discharge page Print Language: Telugu Activity Restrictions/Additional Instructions: Topical Wound Care Recommendation Left Great Toe - Elevate lower Legs - Cleanse with Betadine allow to dry Daily. Leave open to air may cover with dry gauze but do not use foam dressing. Patient educated to wear shoes when ambulating. Recommend follow up out patient Wound Clinic at [address] [place] [id number] and to call for an appointment at time of discharge. [phone]. Care Plan Goals: recovery Health Concerns: ampuattion Plan of Treatment: dressing per vascular, follow up with vascular Assessment: see above
--- NOTE | 2023-07-22 11:04 | MHC.CM.PN ---
Addendum entered by Julia Mcrae 07/22/23 11:27: The patient does not have house keys with him. 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 Original Note: Patient is discharged to home today self care. The patient does not have insurance coverage for home services or supplies. He will arrange for transportation home.
[2023-07-22 11:39] LABS: Glucose, Whole Blood 161 mg/dL (60-115)
[2023-07-22] MEDS: Insulin Lispro 100 UNIT/ML 3 ML VIAL SUBCUT ×2 (12:01→17:31)
[2023-07-22 12:15] VITALS: O2SAT 97
[2023-07-22 13:00] VITALS: BP 144/72; PULSE 88; RESP 16; TEMP 36; O2SAT 97
--- NOTE | 2023-07-22 13:08 | HO.VASCPN ---
Subjective Subjective Date of Service: 07/22/23 Patient reports: no new complaints and feels better Interval history: Patient seen and examined status post toe amp. Doing extremely well. Pain well tolerated. Now for postoperative follow-up. Physical Exam Vital Signs: Vital Signs: Last Vital Signs Temp 96.8 F 07/22/23 13:00 Pulse 88 07/22/23 13:00 Resp 16 07/22/23 13:00 BP 144/72 H 07/22/23 13:00 Pulse Ox 97 07/22/23 13:00 O2 Del Method Room Air 07/22/23 13:00 O2 Flow Rate 5 07/21/23 13:04 BMI result Body Mass Index 31.0 Const: General: cooperative, healthy appearing and no acute distress Orientation/consciousness: oriented to person, oriented to place and oriented to time HEENT: Head: Yes normal to inspection Neck: Carotids: no bruits Chest: Chest palpation & inspection: normal inspection of the chest Resp: Effort & Inspection: normal respiratory effort and able to speak in complete sentences Auscultation: clear to auscultation bilaterally Cardio: Rate: regular rate Heart sounds: S1 normal heart sound present and S2 normal heart sound present GI: Inspection: Yes normal to inspection Skin: Other: Dressing changed. Toe amp site appears to be healing well General skin exam: no rashes or lesions noted Wounds: no wounds Neuro: General: oriented to person, oriented to place, oriented to time and CN's II-XI intact bilaterally Extrem: General: Yes normal to inspection, Yes full ROM and Yes no clubbing, cyanosis or edema Psych: Appearance: grossly normal and well kempt Speech and movement: Normal speech and movement present Affect: normal affect Progress Note: A&P Assessment and plan (1) Osteomyelitis of great toe of left foot: Status: Acute Assessment and Plan: In short patient is status post left great toe amp. Stable from my perspective for discharge. He can see us as an outpatient in approximately 2 weeks for suture and staple removal. Time Spent With Patient Time: Total time managing care of this patient today ____ minutes. Procedures Date of Service Date of Service: 07/22/23 Quality Stroke Does the patient have a stroke diagnosis?: No VTE Prior VTE?: No VTE Risk Level:: Medical - moderate - high VTE Device Contraindication: Treatment Not Indicated VTE Drug Contraindication: N/A - Med Ordered
[2023-07-22 15:00] VITALS: BP 152/76; PULSE 85; RESP 18; TEMP 36.7; O2SAT 97
[2023-07-22 16:02] LABS: Glucose, Whole Blood 170 mg/dL (60-115)
--- NOTE | 2023-07-22 20:10 | PC.NURSE ---
discharge instructions explained to patient and patient son,drsg changes explained to pt son
== END 2023-07-22 20:12 | disposition home or self-care (01) | DRG 314 ==
LOC: HO.ED 14:00 → HO.EDOVER 15:02 → HO.S3 18:06
PROVIDERS: Internal Medicine; Physician Assistant; Surgery Vascular Surgery; Admitting Provider Physician Assistant; Emergency Provider Emergency Medicine; PCP Registered Nurse; Visit Provider Internal Medicine
PROC: 0Y6Q0Z0 Detachment at Left 1st Toe, Complete, Open Approach (ICD-10-PCS; principal; 2023-07-21 12:00)
DX: E11.69 Type 2 diabetes mellitus with other specified complication (principal); M86.172 Other acute osteomyelitis, left ankle and foot; G20.A1 Parkinson's disease without dyskinesia, without mention of fluctuations; E11.621 Type 2 diabetes mellitus with foot ulcer; L97.529 Non-pressure chronic ulcer of other part of left foot with unspecified severity; F41.9 Anxiety disorder, unspecified; E66.9 Obesity, unspecified; Z68.31 Body mass index [BMI] 31.0-31.9, adult; E11.65 Type 2 diabetes mellitus with hyperglycemia; I10 Essential (primary) hypertension; Z71.3 Dietary counseling and surveillance; Z91.199 Patient's noncompliance with other medical treatment and regimen due to unspecified reason; Z79.84 Long term (current) use of oral hypoglycemic drugs; Z79.899 Other long term (current) drug therapy
CPT/HCPCS: 36415; 73630; 73720; 80048; 80076; 80202; 81001; 82565; 82947; 83036; 83605; 83735; 83880; 85025; 85027; 85652; 86140; 87040; 87640; 87641; 88305; 88311; 93926; 99285; A9585; J1644; J2185; J2250; J2543; J2704; J3010; J3370; J3371

== ENCOUNTER → 2023-07-11 15:01 | Outpatient (BNV) | payer MEDICAID, SELFPAY | PROVIDERS: Admitting Provider Physician Assistant; Emergency Provider Emergency Medicine; PCP Registered Nurse; Visit Provider Surgery Vascular Surgery | DX: M86.9 Osteomyelitis, unspecified (principal); Z89.412 Acquired absence of left great toe | CPT/HCPCS: 28820; 99024; 99222; 99232 ==

== ENCOUNTER → 2023-07-11 15:01 | Outpatient (BNV) | payer MEDICAID, SELFPAY | PROVIDERS: Admitting Provider Physician Assistant; Emergency Provider Emergency Medicine; PCP Registered Nurse; Visit Provider Internal Medicine | DX: M86.9 Osteomyelitis, unspecified (principal); E11.65 Type 2 diabetes mellitus with hyperglycemia | CPT/HCPCS: 99222 ==

== ENCOUNTER → 2023-07-11 15:01 | Outpatient (BNV) | payer SELFPAY | PROVIDERS: Admitting Provider Physician Assistant; Emergency Provider Emergency Medicine; PCP Registered Nurse; Visit Provider Physician Assistant | DX: E11.621 Type 2 diabetes mellitus with foot ulcer (principal); L97.524 Non-pressure chronic ulcer of other part of left foot with necrosis of bone; M86.9 Osteomyelitis, unspecified | CPT/HCPCS: 99223; 99231; 99232; 99233; 99239 ==

== ENCOUNTER 2023-08-16 09:01 | Outpatient (AMB) | payer OTHER, SELFPAY ==
--- NOTE | 2023-08-16 09:32 | MHC.OFFVIS ---
Intake Visit Reasons: Post Op toe amputation 07/21/23 Intake Note: Patient presents for follow up toe amp. Patient states he is doing well, not experiencing any pain. Accompanied by: Son Allergies No Known Allergies Allergy (Verified 08/16/23 09:36) HPI HPI Post Op toe amputation 07/21/23: Details: Very pleasant 63-year-old gentleman presents for follow-up status post left great toe amputation done on 07/21/2023. Overall doing fairly well. No interval issues. Now presents for routine follow-up wound check. [facility] Medical History Anxiety HTN (hypertension) Type 2 diabetes mellitus Social History Household Members: Children Housing: Apartment Do you presently have visiting nurse or other home services: No Alcohol intake: never Patient Tobacco Use Status: Never used Tobacco Review of Systems Const All systems reviewed & are unremarkable except as noted in HPI and below Reports no additional complaints ENT Reports Normal hearing present Card Denies chest pain, Denies chest pain at rest, Denies chest pain with activity and Denies pedal edema Resp Denies cough GI Denies abdominal pain Musc Denies abnormal gait, Denies muscle cramps and Denies radiating pain into limb Skin/Breast Denies skin ulcer and Denies wounds Neuro Reports Normal hearing present and Denies abnormal gait Psych Reports no additional complaints Physical Exam Const General: cooperative, healthy appearing and comfortable Orientation/consciousness: oriented to person, oriented to place and oriented to time HEENT Head: Yes normal to inspection Neck Neck: Yes normal visual inspection Carotids: no bruits Chest Chest palpation & inspection: normal inspection of the chest Resp Effort & Inspection: normal respiratory effort and able to speak in complete sentences Auscultation: clear to auscultation bilaterally, no crackles, no rales, no rhonchi and no wheezes Cardio Rate: regular rate Rhythm: regular rhythm Heart sounds: S1 normal heart sound present and S2 normal heart sound present Bruits: no carotid bruits Peripheral pulses: Peripheral pulses 2+ throughout GI Inspection: Yes normal to inspection Skin Other: Left great toe amputation site sutures and marilou removed. Focal opening measuring 2 x 1 x 0.2 cm Wounds: no wounds Hair: normal Neuro General: oriented to person, oriented to place and oriented to time Cranial nerves: Yes CN's II-XII intact bilaterally and Yes Normal hearing present Cognition (Neuro): normal cognition Motor exam (neuro): 5/5 motor strength present throughout Extrem Other: venous exam: No significant superficial varicosities or spider telangiectasias, minimal edema General: No clubbing, No cyanosis and No edema Psych Appearance: grossly normal Mental Status: mental status grossly normal Speech and movement: Normal speech and movement present Assessment & Plan Assessment & Plan (1) PAD (peripheral artery disease): Code(s): I73.9 - Peripheral vascular disease, unspecified Category: Medical Plan: In short patient appears to be doing well from toe amputation. Would continue with local wound care. I did reinforce that the dressing should be changed every other day as it did have an odor to it. We will change to foam dressings changed every other day. Patient was instructed on how to do this. He will follow up with us in approximately 2 weeks time. Thank you for allowing us to assist in his care. Coding Level of Care Code Est Pt Level 3 (47179) Diagnoses PAD (peripheral artery disease) I73.9
== END 2023-08-16 10:00 | disposition home or self-care (01) ==
PROVIDERS: PCP Registered Nurse; Visit Provider Surgery Vascular Surgery
DX: I73.9 Peripheral vascular disease, unspecified (principal)
CPT/HCPCS: 99213

== ENCOUNTER → 2023-08-16 09:01 | Outpatient (BNVA) | payer MEDICAID, SELFPAY | PROVIDERS: PCP Registered Nurse; Visit Provider Surgery Vascular Surgery | DX: Z47.81 Encounter for orthopedic aftercare following surgical amputation (principal); I73.9 Peripheral vascular disease, unspecified; Z89.412 Acquired absence of left great toe | CPT/HCPCS: 99212 ==

== ENCOUNTER 2023-08-27 09:26 | Inpatient (IN) | payer MEDICAID, OTHER, SELFPAY ==
[2023-08-27] VITALS (7 sets, daily range): BP systolic 146–177; BP diastolic 75–89; PULSE 77–105; RESP 16–18; TEMP 36–37.7; O2SAT 93–100; BMI 31.9
--- NOTE | ~2023-08-27 | XR_ITS ---
EXAMINATION: XR FOOT, LEFT CLINICAL INFORMATION: Swelling redness COMPARISON: None available. TECHNIQUE: AP, lateral, and oblique views of the left foot. FINDINGS: Postsurgical changes amputation of the first toe. Soft tissue swelling around the stump. Subtle radiolucency in the head of the area first metatarsal raising the possibility of the osteomyelitis. XR/XR foot LT min 3V IMPRESSION: 1. Subtle radiolucency in the head of the first metatarsal raising the possibility of osteomyelitis. MRI could be utilized for further investigation 2. Postsurgical changes amputation of the first toe.
--- NOTE | 2023-08-27 10:15 | PC.NURSE ---
patient left foot, amputated great toe has green/white pus coming out of incision with odor. patients following toe is red, swollen with draining green/white pus. patient does not know when this started
--- NOTE | 2023-08-27 10:40 | ED.GENADULT ---
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 No fevers or chills. Patient does not feel pain at baseline secondary to neuropathy. He tells me that they have been changing the dressings at home. He does not currently go to wound care or have a home care nurse at this time. Of note patient had a 10 day period of time where he did not have access to his diabetic medications. He is currently on his diabetes medications at this time. Does not check his blood sugars at home. Related Data Home Medications ?Medication ?Instructions ?Recorded ?Confirmed metformin 1,000 mg tablet 1,000 mg PO BIDWM 07/11/23 08/27/23 multivitamin 1 tab PO DAILY 07/11/23 08/27/23 acetaminophen 325 mg tablet 650 mg PO Q6H PRN Pain 08/27/23 08/27/23 (Tylenol) aspirin 81 mg tablet,delayed 81 mg PO DAILY 08/27/23 08/27/23 release rosuvastatin 5 mg tablet 5 mg PO BEDTIME cholesterol 08/27/23 08/27/23 Allergies Allergy/AdvReac Type Severity Reaction Status Date / Time No Known Allergies Allergy Verified 08/27/23 09:43 Review of Systems Review of Systems: Yes all other systems are reviewed and are negative Constitutional: Constitutional: Reports no additional constitutional complaints, Denies body ache(s), Denies chills, Denies fever(s), Denies headache(s) and Denies weakness Eyes: Eyes: Reports no additional eye complaints and Denies change in vision ENT: Reports system reviewed and no additional complaints, except as documented, Denies dizziness, Denies headache(s), Denies nasal congestion, Denies nasal discharge and Denies neck pain Cardiovascular: Cardiovascular: Reports no additional cardiovascular complaints, Denies chest pain, Denies leg edema and Denies dyspnea Respiratory: Respiratory: Reports no additional respiratory complaints, Denies cough and Denies dyspnea Gastrointestinal: Gastrointestinal: Reports no additional gastrointestinal complaints, Denies abdominal pain, Denies diarrhea, Denies nausea and Denies vomiting Genitourinary: Genitourinary: Denies urinary incontinence Musculoskeletal: Musculoskeletal: Reports no additional musculoskeletal complaints, Denies back pain, Denies arthralgias, Denies joint swelling, Denies neck pain, Denies numbness and Denies tingling Integumentary/Breasts: Skin/Breast: Reports system reviewed and no additional complaints, except as docu, Reports swelling, Reports erythema, Denies rash and Reports wounds Neurologic: Reports system reviewed and no additional complaints, except as documented, Denies Abnormal speech present, Denies dizziness, Denies headache(s), Denies numbness, Denies tingling and Denies weakness PMFSH Past Medical History Attestation statement: The following information was validated with the patient. Source: old records reviewed and nursing notes reviewed Medical History Anxiety HTN (hypertension) Type 2 diabetes mellitus Social History Social History Household Members: Children Housing: Apartment Do you presently have visiting nurse or other home services: No Alcohol intake: never Patient Tobacco Use Status: Never used Tobacco Smoked in Last 30 Days: No Advance Directives: No Do you have a plan to hurt others: No Plan Physical Exam ED Vital Signs: Vital Signs - 24 hr 08/27/23 09:43 08/27/23 10:28 08/27/23 12:52 Temperature 97.2 F 98.6 F 98.9 F Pulse Rate 91 86 82 Respiratory Rate 18 16 16 Blood Pressure 173/86 H 170/89 H 146/75 H Pulse Oximetry 99 99 100 Oxygen Delivery Method Room Air Room Air Room Air BMI result Body Mass Index 31.9 Const General: cooperative, healthy appearing, comfortable and no acute distress Orientation/consciousness: patient oriented x3 Limitations: no limitations HENMT Head: Yes normal to inspection Ears: hearing grossly normal bilaterally General nose exam: Normal external nose present Face and sinus: Yes normal facial exam Mouth: Normal oral and palatal mucosa present Throat: Yes posterior oropharynx normal Eyes General: appearance normal, both eyes and all related structures Pupils: Equal, round and reactive pupils present Neck Neck: Yes normal visual inspection Chest Chest palpation & inspection: normal inspection of the chest Resp Effort & Inspection: normal respiratory effort Auscultation: clear to auscultation bilaterally Cardio Rate: regular rate Rhythm: regular rhythm Peripheral pulses: Peripheral pulses 2+ throughout GI Inspection: Yes normal to inspection Palpation (GI): Soft to palpation and nontender Auscultation: normal bowel sounds Back/Spine/Pelvis Thoracic/Lumbar Spine: thoracic and lumbar spine normal to inspection Skin General skin exam: no rashes or lesions noted Neuro General: patient oriented x3, no focal motor deficits and normal sensation to monofilament Cranial nerves: Yes Equal, round and reactive pupils present Cognition (Neuro): normal cognition Speech: No Abnormal speech present Gait exam (Neuro): Normal gait present Motor exam (neuro): 5/5 motor strength present throughout Extrem Other: Pulses are present General: Yes normal to inspection Medications Administered Generic Name Dose Route Start Last Admin Trade Name Freq PRN Reason Stop Dose Admin Vancomycin HCl 2,000 mg in 500 mls @ 250 mls/hr 08/27/23 12:37 08/27/23 12:55 Vancomycin/Ns IV 08/27/23 14:36 250 mls/hr ONCE ONE Administration Discontinued Medications Generic Name Dose Route Start Last Admin Trade Name Freq PRN Reason Stop Dose Admin Piperacillin Sod/Tazobactam 50 mls @ 100 mls/hr 08/27/23 10:39 08/27/23 14:06 Sod 3.375 gm/ Sodium Chloride IV 08/27/23 11:08 Infused ONCE ONE Infusion Sodium Chloride 1,000 mls @ 999 mls/hr 08/27/23 11:26 08/27/23 11:43 Ns IV 08/27/23 12:26 999 mls/hr .Q1H1M STA Administration Medical Decision Making Medical Decision Making MDM Narrative: 63-year-old male with a history of diabetes, peripheral artery disease, recent left great toe amputation secondary to osteomyelitis on 07/20 here with complaints of redness and swelling to the amputation site as well as redness and swelling to the 2nd toe on the same foot x 3 days. No fevers or chills. Patient does not feel pain at baseline secondary to neuropathy. He tells me that they have been changing the dressings at home. He does not currently go to wound care or have a home care nurse at this time. Of note patient had a 10 day period of time where he did not have access to his diabetic medications. He is currently on his diabetes medications at this time. Does not check his blood sugars at home. See physical exam pictures At this time infection is suspected. Blood is ordered. X-ray is ordered. Antibiotics are ordered. Differential Diagnosis Differential Diagnoses: The differential diagnosis associated with the presentation includes Cellulitis, osteomyelitis, diabetic wound Admission/Observation Consideration of admission/observation: Escalation of care including admission/observation considered Patient with a history of diabetes with a wound infection and concern for potential osteomyelitis of the 2nd toe with an elevated lactic acid requiring admission for IV antibiotics Consult Healthcare Provider Management of the patient was discussed with: Hospitalist Spoke to hospitalist who accepted admission Lab Data MDM Lab Attestation statement: I reviewed the patient's lab results. 08/27/23 10:52 08/27/23 10:52 Labs: Lab Results 08/27/23 Range/Units 10:52 WBC 6.7 (4.8-10.8) X10*3/uL RBC 4.12 L (4.60-5.80) X10*6/uL Hgb 12.3 L (14.0-18.0) g/dl Hct 36.2 L (42.0-52.0) % MCV 87.9 (80.0-98.0) fL MCH 29.9 (27.0-33.0) pg MCHC 34.0 (31.0-36.0) g/dl RDW 12.8 (11.0-16.0) % Plt Count 254 (160-400) X10*3/uL MPV 10.0 (9.4-12.4) fL Immature Gran % (Auto) 0.3 (0.0-0.4) % Neut % (Auto) 71.6 (45-73) % Lymph % (Auto) 17.8 L (20-40) % [place] % (Auto) 7.5 (2-11) % Eos % (Auto) 2.1 (0-4) % Baso % (Auto) 0.7 (0-2) % Lymph # (Auto) 1.2 (1.2-4.9) X10*3/uL [place] # (Auto) 0.5 (0.1-1.2) X10*3/uL Eos # (Auto) 0.1 (0.0-0.4) X10*3/uL Baso # (Auto) 0.1 (0.0-0.2) X10*3/uL Abs Immat Gran (auto) 0.02 (0.00-0.03) X10*3/uL Absolute Neuts (auto) 4.8 (2.0-8.3) x10*3/uL Absolute Nucleated RBC 0.000 (0.0-0.012) X10*3/uL Nucleated RBC % (auto) 0.0 (0.0-0.2) /100WBC ESR 44 H (0-15) MM/HR Sodium 140 (135-145) mmol/L Potassium 5.2 H D (3.3-5.1) mmol/L Chloride 103 (96-108) mmol/L Carbon Dioxide 26 (22-29) mmol/L Anion Gap 16 (12-20) BUN 13 (9-16) mg/dL Creatinine 0.91 (0.5-1.4) mg/dL Estim Creat Clear Calc 84.2 Estimated GFR > 60 Random Glucose 212 H (60-115) mg/dL Lactic Acid 3.0 H* (0.5-2.0) mmol/L Calcium 9.8 D (8.4-10.2) mg/dL Total Bilirubin 0.6 (0.0-1.0) mg/dL Direct Bilirubin 0.2 (0.0-0.5) mg/dL AST 17 (5-37) U/L ALT 13 (0-40) U/L Alkaline Phosphatase 140 H (39-117) U/L C-Reactive Protein 1.95 H (< or = 0.50) mg/dL Total Protein 7.6 (6.5-8.0) g/dL Albumin 4.3 (3.5-5.0) g/dL Independent Interpretation I performed an independent interpretation of an: Plain X-Ray Interpretation: I independently reviewed the x-ray and agree with the radiology report Radiology Impression Discussion of test interpretation with radiology: I have reviewed the radiologist's reading. Radiologist Impression: [address] [address] XRay Report Signed Patient: Matteo Greenberg MR#: [id number] : 1960 Acct:[id number] Age/Sex: 63 / M ADM Date: 08/27/23 Loc: HO.ED Attending Dr: Ordering Physician: Kathia Harris NP Date of Service: 08/27/23 Procedure(s): XR foot LT min 3V Accession Number(s): [id number] cc: Karin BalderasP; Kathia Harris NP~ EXAMINATION: XR FOOT, LEFT CLINICAL INFORMATION: Swelling redness COMPARISON: None available. TECHNIQUE: AP, lateral, and oblique views of the left foot. FINDINGS: Postsurgical changes amputation of the first toe. Soft tissue swelling around the stump. Subtle radiolucency in the head of the area first metatarsal raising the possibility of the osteomyelitis. XR/XR foot LT min 3V IMPRESSION: 1. Subtle radiolucency in the head of the first metatarsal raising the possibility of osteomyelitis. MRI could be utilized for further investigation 2. Postsurgical changes amputation of the first toe. Independent Historian Clinical information obtained from an independent historian. History obtained from or confirmed by: Other (Sign) Critical Care Time Critical Care Time Critical Care Time: Yes Total Critical Care Time: 60 Attestation: Concern for osteomyelitis and diabetic wound requiring IV antibiotics and admission, discussion with hospitalist and family at bedside Discharge Plan Discharge Clinical Impression: Cellulitis of left foot, Elevated lactic acid level Patient Disposition: Admitted As Inpatient Print Language: Slovenian
[2023-08-27 10:58] LABS: MANUAL DIFF FLAG NO
[2023-08-27 11:00] LABS: Basophils Absolute Auto 0.1 X10*3/uL (0.0-0.2); Basophils Percent Auto 0.7 % (0-2); Eosinophils Absolute Auto 0.1 X10*3/uL (0.0-0.4); Eosinophils Percent Auto 2.1 % (0-4); Hematocrit 36.2 % (42.0-52.0); Hemoglobin 12.3 g/dl (14.0-18.0); Imm Gran Abs Auto 0.02 X10*3/uL (0.00-0.03); Imm Gran Pct Auto 0.3 % (0.0-0.4); Lymphocytes Absolute Auto 1.2 X10*3/uL (1.2-4.9); Lymphocytes Percent Auto 17.8 % (20-40); Mean Corpuscular Hemoglobin 29.9 pg (27.0-33.0); Mean Corpuscular Volume 87.9 fL (80.0-98.0); Monocytes Absolute Auto 0.5 X10*3/uL (0.1-1.2); Monocytes Percent Auto 7.5 % (2-11); Neutrophils Absolute Auto 4.8 x10*3/uL (2.0-8.3); Neutrophils Percent Auto 71.6 % (45-73); Platelet Count 254 X10*3/uL (160-400); Red Blood Count 4.12 X10*6/uL (4.60-5.80); Red Cell Distribution Width 12.8 % (11.0-16.0); White Blood Count 6.7 X10*3/uL (4.8-10.8)
[2023-08-27 11:24] LABS: Alanine Aminotransferase 13 U/L (0-40); Albumin Level 4.3 g/dL (3.5-5.0); Alkaline Phosphatase 140 U/L (39-117); Anion Gap 16 (12-20); Aspartate Amino Transferase 17 U/L (5-37); Bilirubin Direct 0.2 mg/dL (0.0-0.5); Bilirubin Total 0.6 mg/dL (0.0-1.0); Blood Urea Nitrogen 13 mg/dL (9-16); C Reactive Protein 1.95 mg/dL (< or = 0.50); Calcium 9.8 mg/dL (8.4-10.2); Carbon Dioxide 26 mmol/L (22-29); Chloride 103 mmol/L (96-108); Creatinine Clr Calc Pharmacy 84.2; Estimated Glomerular Filt Rate > 60; Glucose Random 212 mg/dL (60-115); Potassium 5.2 mmol/L (3.3-5.1); Sodium 140 mmol/L (135-145); Total Protein 7.6 g/dL (6.5-8.0)
[2023-08-27] MEDS: Piperacillin Sodium/Tazobactam 3.375 GM in 0.9 % Sodium Chloride 50 ML IV ×3 (11:42→23:37)
[2023-08-27] MEDS: 0.9 % Sodium Chloride 1,000 ML 999 ML IV (11:43)
[2023-08-27 11:45] LABS: Erythrocyte Sedimentation Rate 44 MM/HR (0-15)
[2023-08-27] MEDS: vancomycin/NS 2,000 MG/500 ML PLAST..BAG 250 MG IV (12:55)
[2023-08-27 12:56] LABS: Reflex Lactate? Lactic Acid Added
--- NOTE | 2023-08-27 13:45 | P.HPHOSP_ITS ---
History of Present Illness Date of Service: 08/27/23 Attending physician on admission: Jeremi Howard Chief Complaint: Swelling in feet Pt is a 63-year-old male with a PMH significant for?HLD, ruy-inkwstz-rlrngkluf type 2 diabetes, hx of osteomyelitis s/p left great toe amputation on 07/21/2023, chronic resting tremor, and anxiety who presents to the ED complaining of left foot infection. Patient was recently hospitalized on 07/10 for osteomyelitis of left great toe which was subsequently amputated on 07/[address] Munguia. Patient states after discharge did well, though began noticing increasing redness, swelling, pain, and purulent discharge from amputation site as well as redness, pain, and swelling of 2nd digit of left toe 3 days ago. Denies fever, chills. No nausea or vomiting. Denies chest pain/pressure, palpitations. No shortness a breath or difficulty breathing. Denies abdominal pain. During last admission pt's A1c was Pt notes he was on insulin while in the hospital but has not yet followed up outpatient with his PCP and not on home In the ED pt was tachycardic up to 91 and hypertensive up to 173/86. Labs were significant for ESR 44, potassium 5.2 (with slight hemolysis), fasting glucose 212, lactic acid 3.0, alk-phos 140, CRP 1.95. X-ray of left foot shows subtle radiolucency at the head of the 1st metatarsal raising possibility of osteomyelitis. Pt was treated with IVF, vanc and Zosyn. Pt will be admitted to the hospital for treatment and further evaluation of left foot cellulitis in the setting of non-healing diabetic foot ulcer at previous amputation site. Review of Systems 2 Review of Systems: Left foot pain, swelling, and redness Purulent discharge from previous amputations site at left great toe Denies N/V, F/C No chest pain/pressure Denies SOB or AMOS No abdominal pain [facility] Medical History (Updated 08/27/23 @ 15:53 by RAQUEL Hawthorne) Amputation of left great toe Osteomyelitis Anxiety HTN (hypertension) Type 2 diabetes mellitus Social History Household Members: Children Housing: Apartment Do you presently have visiting nurse or other home services: No Alcohol intake: never Patient Tobacco Use Status: Never used Tobacco Smoked in Last 30 Days: No Advance Directives: No Do you have a plan to hurt others: No Plan Meds Allergies Allergy/AdvReac Type Severity Reaction Status Date / Time No Known Allergies Allergy Verified 08/27/23 09:43 Active Medications: Current Medications Vancomycin HCl (Vancomycin/Ns) 2,000 mg in 500 mls @ 250 mls/hr IV ONCE ONE Stop: 08/27/23 14:36 Last Admin: 08/27/23 12:55 Dose: 250 mls/hr Home Medications ?Medication ?Instructions ?Recorded ?Confirmed ?Last Taken ?Type metformin 1,000 mg tablet 1,000 mg PO BIDWM 07/11/23 08/27/23 08/27/23 History multivitamin 1 tab PO DAILY 07/11/23 08/27/23 08/27/23 History acetaminophen 325 mg tablet 650 mg PO Q6H PRN Pain 08/27/23 08/27/23 Unknown History (Tylenol) aspirin 81 mg tablet,delayed 81 mg PO DAILY 08/27/23 08/27/23 08/27/23 History release rosuvastatin 5 mg tablet 5 mg PO BEDTIME cholesterol 08/27/23 08/27/23 08/26/23 History Physical Exam 2 Vital Signs and Narrative: Vital Signs: Last Vital Signs Temp 98.9 F 08/27/23 12:52 Pulse 82 08/27/23 12:52 Resp 16 08/27/23 12:52 BP 146/75 H 08/27/23 12:52 Pulse Ox 100 08/27/23 12:52 O2 Del Method Room Air 08/27/23 12:52 BMI result Body Mass Index 31.9 General: AOx3, no acute distress Resp: CTA bilaterally CVS: S1, S2, RRR GI: +BS, NT, no distention Skin: Warm, dry Neuro: Cranial nerves II-XII grossly intact bilaterally. Motor grossly intact bilaterally Extremities: 2+ left lower leg and foot pitting edema. Thick, foul-smelling discharge at prior amputation site of left great toe. Erythema and warmth of 1st and 2nd digits of left foot. Left lower extremity non erythematous but warm. As pictured below Psych: Appropriate affect Results Labs 08/27/23 10:52 08/27/23 10:52 Labs: Laboratory Results - last 24 hr 08/27/23 10:52 MCV 87.9 MCH 29.9 MCHC 34.0 RDW 12.8 Plt Count 254 MPV 10.0 Immature Gran % (Auto) 0.3 Neut % (Auto) 71.6 Lymph % (Auto) 17.8 L [place] % (Auto) 7.5 Eos % (Auto) 2.1 Baso % (Auto) 0.7 Lymph # (Auto) 1.2 [place] # (Auto) 0.5 Eos # (Auto) 0.1 Baso # (Auto) 0.1 Abs Immat Gran (auto) 0.02 Absolute Neuts (auto) 4.8 Absolute Nucleated RBC 0.000 Nucleated RBC % (auto) 0.0 ESR 44 H Anion Gap 16 Estim Creat Clear Calc 84.2 Estimated GFR > 60 Random Glucose 212 H Lactic Acid 3.0 H* Calcium 9.8 D Total Bilirubin 0.6 Direct Bilirubin 0.2 AST 17 ALT 13 Alkaline Phosphatase 140 H C-Reactive Protein 1.95 H Total Protein 7.6 Albumin 4.3 Imaging Radiologist's Impressions: Impressions Foot X-Ray 08/27/23 11:13 IMPRESSION: 1. Subtle radiolucency in the head of the first metatarsal raising the possibility of osteomyelitis. MRI could be utilized for further investigation 2. Postsurgical changes amputation of the first toe. Assessment and Plan (1) Cellulitis of left foot: Status: Acute Plan Pt is a 63-year-old male with a PMH significant for?HLD, ger-qpajjfn-mrhkqqida type 2 diabetes, hx of osteomyelitis s/p left great toe amputation on 07/21/2023, chronic resting tremor, and anxiety who presents to the ED complaining of left foot infection. Pt will be admitted to the hospital for treatment and further evaluation of left foot cellulitis in the setting of non-healing diabetic foot ulcer at previous amputation site. Left foot cellulitis in the setting of nonhealing diabetic foot ulcer at previous amputation site Patient with erythema, warmth, and foul-smelling discharge from prior amputation site of left great toe X-ray of left foot showed subtle radiolucency at the head of the 1st metatarsal raising possibility of osteomyelitis Patient does not meet sepsis criteria: HR 91, but no fever tachypnea or leukocytosis Patient is started on broad-spectrum antibiotics in the ED Will treat with vancomycin and Zosyn, started 08/27/2023 Vascular surgery consult Will defer additional imaging and consult to wound care or infectious disease pending vascular input Follow cultures Lactic acidosis Lactic acid 3.0 at time of presentation Secondary to metformin use, not sepsis Non-insulin dependent type [address] on sliding scale insulin, diabetic diet A1c on 07/10 11.3; currently not on home insulin Recheck A1c Should follow up with PCP for possible home insulin and establishing better glycemic control Resting tremor Concerning for Parkinson's Should followup with PCP/neuro outpatient HLD Continue statin Full Code Attending:?Dr. Howard DVT Prophylaxis: Lovenox Pt will require a hospitalization of at least two nights for treatment of? with left foot cellulitis concerning for osteomyelitis in the setting of nonhealing diabetic foot ulcer at prior amputation site of left great toe. Patient will require administration of IV antibiotics and specialist consultation with vascular surgery. Quality Stroke Does the patient have a stroke diagnosis?: No VTE Prior VTE?: No VTE Risk Level:: Medical - moderate - high VTE Device Contraindication: Treatment Not Indicated VTE Drug Contraindication: N/A - Med Ordered
--- NOTE | 2023-08-27 13:53 | PHA.MEDREC ---
Pharmacy Consult ? Medication Reconciliation Pharmacy has completed the medication reconciliation. Utilized gambling floor supervisor services.
[2023-08-27 16:00] LABS: Estimated Average Glucose 223 mg/dL; Hemoglobin A1c % 9.4 % (<6.0)
[2023-08-27] MEDS: 0.9 % Sodium Chloride Flush 3 ML SYRINGE IVFLUSH ×2 (16:12→22:19)
[2023-08-27 17:23] LABS: Glucose, Whole Blood 146 mg/dL (60-115)
[2023-08-27 17:38] LABS: Reflex Lactate? 2 Y
[2023-08-27] MEDS: Enoxaparin Sodium 40 MG/0.4 ML SYRINGE SUBCUT (18:23)
[2023-08-27 18:32] LABS: ~Lactic Acid-LAB USE ONLY 1.5 mmol/L (0.5-2.0)
[2023-08-27 20:29] LABS: Glucose, Whole Blood 267 mg/dL (60-115)
[2023-08-27] MEDS: Insulin Lispro 100 UNIT/ML 3 ML VIAL SUBCUT (21:27)
[2023-08-27] MEDS: Atorvastatin Calcium 20 MG TABLET PO (21:27)
[2023-08-27] MEDS: vancomycin HCL 1,000 MG in 0.9 % Sodium Chloride 250 ML 270 MG IV (22:18)
[2023-08-28 03:29] VITALS: BP 143/74; PULSE 84; RESP 18; TEMP 36.1; O2SAT 95
[2023-08-28] MEDS: Piperacillin Sodium/Tazobactam 3.375 GM in 0.9 % Sodium Chloride 50 ML IV ×4 (05:23→23:36)
[2023-08-28 06:31] LABS: Anion Gap 12 (12-20); Blood Urea Nitrogen 13 mg/dL (9-16); Calcium 9.3 mg/dL (8.4-10.2); Carbon Dioxide 23 mmol/L (22-29); Chloride 107 mmol/L (96-108); Creatinine Clr Calc Pharmacy 94.6; Estimated Glomerular Filt Rate > 60; Glucose Random 182 mg/dL (60-115); Potassium 3.9 mmol/L (3.3-5.1); Sodium 138 mmol/L (135-145)
[2023-08-28 07:28] VITALS: BP 140/77; PULSE 73; RESP 16; TEMP 36.1; O2SAT 95
[2023-08-28 07:29] LABS: Glucose, Whole Blood 180 mg/dL (60-115)
[2023-08-28] MEDS: 0.9 % Sodium Chloride Flush 3 ML SYRINGE IVFLUSH ×3 (08:14→21:05)
[2023-08-28] MEDS: Insulin Lispro 100 UNIT/ML 3 ML VIAL SUBCUT ×3 (08:14→17:00)
[2023-08-28] MEDS: Multivitamin TABLET 1 TAB PO (08:15)
[2023-08-28 09:17] LABS: Vancomycin Random 12.6 mcg/mL (15-20)
--- NOTE | 2023-08-28 09:21 | HE.PHANOTE ---
RE: VANCO DOSING Random came back as 12.6. Continue with dose of 1000 mg q12h, next random is scheduled for 08/29/23 @0900.
[2023-08-28 11:15] LABS: Glucose, Whole Blood 193 mg/dL (60-115)
[2023-08-28] MEDS: vancomycin HCL 1,000 MG in 0.9 % Sodium Chloride 250 ML 270 MG IV ×2 (11:53→22:20)
--- NOTE | 2023-08-28 14:50 | P.PNIM_ITS ---
Subjective Subjective Date of Service: 08/28/23 Interval History: History obtained via official court interpreter patient being treated for left big toe amputation site redness, swelling, drainage x-ray left foot concerning for 1st metatarsal osteomyelitis Patient is status post left great toe amputation 07/[address] Munguia for osteomyelitis. Patient feels better this morning denies fever, no chills, denies pain left foot swelling and redness improving, tolerating diet no nausea, no vomiting no abdominal pain. Review of Systems All other system reviewed and are negative Physical Exam 2 Vital Signs: Vital Signs: Last Vital Signs Temp 96.9 F 08/28/23 07:28 Pulse 73 08/28/23 07:28 Resp 16 08/28/23 07:28 BP 140/77 H 08/28/23 07:28 Pulse Ox 95 08/28/23 07:28 O2 Del Method Room Air 08/28/23 07:28 BMI result Body Mass Index 31.9 Const: Other: General: in no acute distress Anicteric sclera Resp: Clear to auscultation. CVS: S1, S2, RRR GI: Abdomen soft non tender, bowel sounds audible Skin: Warm, dry Neuro: Nonfocal Extremities: 2+ left lower leg and foot pitting edema, improved since admission, thick, foul-smelling discharge at prior amputation site of left great toe. Erythema and warmth of 1st and 2nd digits of left foot improving. Psych: Appropriate affect Objective Data Active Medications Acetaminophen (Acetaminophen 325 Mg Tablet) 650 mg PO Q6H PRN PRN Reason: Pain, Mild (Pain Scale 1-3), fever or headache Atorvastatin Calcium (Atorvastatin Calcium 20 Mg Tablet) 20 mg PO BEDTIME [facility] Last Admin: 08/27/23 21:27 Dose: 20 mg Documented By: CARRILLO Benzonatate (Benzonatate 100 Mg Capsule) 100 mg PO TID PRN PRN Reason: Cough Calcium Carbonate (Calcium Carbonate 750 Mg Tab.Chew) 750 mg PO Q4H PRN PRN Reason: Heartburn Enoxaparin Sodium (Enoxaparin Sodium 40 Mg/0.4 Ml Syringe) 40 mg SUBCUT Q24H [facility] Last Admin: 08/27/23 18:23 Dose: 40 mg Documented By: SERJIO Glucose (Glucose Gel 15 Gm Gel..Gram.) 15 gm PO Q15M PRN; Protocol PRN Reason: per Hypoglycemia Standing Ord. Piperacillin Sod/Tazobactam (Sod 3.375 gm/ Sodium Chloride) 50 mls @ 100 mls/hr IV Q6H [facility] Last Infusion: 08/28/23 13:48 Dose: Infused Documented By: BONNIE Dextrose (D10) 250 mls @ 750 mls/hr IV Q15M PRN; Protocol PRN Reason: per Hypoglycemia Standing Ord. Vancomycin HCl 1,000 mg/ (Sodium Chloride) 270 mls @ 270 mls/hr IV Q12H [facility] Last Infusion: 08/28/23 13:11 Dose: Infused Documented By: BONNIE Insulin Human Lispro (Insulin Lispro 100 Unit/Ml 3 Ml Vial) 0 unit SUBCUT QIDACHS [facility]; Protocol Last Admin: 08/28/23 11:51 Dose: 2 unit Documented By: BONNIE Magnesium Hydroxide (Milk Of Magnesia 30 Ml Oral.Susp) 30 ml PO DAILY PRN PRN Reason: Constipation Melatonin (Melatonin 3 Mg Tablet) 6 mg PO BEDTIME PRN PRN Reason: Insomnia Multivitamins/Vitamin C (Multivitamin Tablet) 1 tab PO DAILY [facility] Last Admin: 08/28/23 08:15 Dose: 1 tab Documented By: BONNIE Ondansetron HCl (Ondansetron Hcl 4 Mg/2 Ml Vial) 4 mg IVPUSH Q8H PRN PRN Reason: Nausea and Vomiting Pharmacy Consult (Consult Rx Vancomycin Dosing) 1 each MISCELLANE DAILY PRN PRN Reason: Consult order Sodium Chloride (0.9 % Sodium Chloride Flush 3 Ml Syringe) 3 ml IVFLUSH QSHIFT [facility] Last Admin: 08/28/23 08:14 Dose: 3 ml Documented By: BONNIE Labs 08/27/23 10:52 08/28/23 05:45 Labs: Laboratory Results - last 24 hr 08/27/23 08/27/23 08/27/23 10:52 15:35 17:17 Anion Gap Estim Creat Clear Calc Estimated GFR POC Glucose 146 H Random Glucose Estimat Average Glucose 223 Hemoglobin A1c % 9.4 H Lactic Acid F/U @ 2Hr 3.0 H* Lactic Acid F/U @ 4Hr Calcium Random Vancomycin 08/27/23 08/27/23 08/28/23 18:13 20:25 05:45 Anion Gap 12 Estim Creat Clear Calc 94.6 Estimated GFR > 60 POC Glucose 267 H Random Glucose 182 H Estimat Average Glucose Hemoglobin A1c % Lactic Acid F/U @ 2Hr Lactic Acid F/U @ 4Hr 1.5 Calcium 9.3 Random Vancomycin 08/28/23 08/28/23 08/28/23 07:26 08:47 11:06 Anion Gap Estim Creat Clear Calc Estimated GFR POC Glucose 180 H 193 H Random Glucose Estimat Average Glucose Hemoglobin A1c % Lactic Acid F/U @ 2Hr Lactic Acid F/U @ 4Hr Calcium Random Vancomycin 12.6 L Microbiology Microbiology Results: Microbiology 08/27/23 11:22 Blood Culture - Preliminary Blood - Venous No growth after 24 hours. 08/27/23 10:52 Blood Culture - Preliminary Blood - Venous No growth after 24 hours. Assessment and Plan (1) Elevated lactic acid level: Status: Acute (2) Cellulitis of left foot: Status: Acute (3) Uncontrolled type 2 diabetes mellitus with hyperglycemia: Status: Acute Plan 63-year-old male with a PMH significant for?HLD, [id number] type 2 diabetes, hx of osteomyelitis s/p left great toe amputation on 07/21/2023, chronic resting tremor, and anxiety who presents to the ED complaining of left foot infection. Pt will be admitted to the hospital for treatment and further evaluation of left foot cellulitis in the setting of non-healing diabetic foot ulcer at previous amputation site. Left foot cellulitis in the setting of non healing diabetic foot ulcer at previous amputation site No sepsis, no fevers, normal WBC, blood cultures x2 no growth times 24 hours, CRP 1.95 X-ray of left foot showed subtle radiolucency at the head of the 1st metatarsal raising possibility of osteomyelitis Continue IV vancomycin and Zosyn, started 08/27/2023, keep leg elevated. Vanco level 12.6 follow renal function and random vanco. Vascular surgery consult Acute Lactic acidosis Lactic acid 3.0 at time of presentation Secondary to metformin use, not sepsis Non-insulin dependent type 2 diabetes mellitus Hold metformin Elevated blood sugars, adjust sliding scale insulin, diabetic diet A1c 9.4 Should follow up with PCP for possible home insulin and establishing better glycemic control Resting tremor Concerning for Parkinson's Should follow up with PCP/neuro outpatient HLD Continue statin Full Code DVT Prophylaxis: Lovenox Pt will require continued inpatient hospitalization for treatment of? with left foot cellulitis concerning for osteomyelitis in the setting of nonhealing diabetic foot ulcer at prior amputation site of left great toe. Patient will require administration of IV antibiotics and specialist consultation with vascular surgery. Quality Stroke Does the patient have a stroke diagnosis?: No VTE Prior VTE?: No VTE Risk Level:: Medical - moderate - high VTE Device Contraindication: Treatment Not Indicated VTE Drug Contraindication: N/A - Med Ordered
[2023-08-28 15:17] VITALS: BP 142/77; PULSE 68; RESP 18; TEMP 36.5; O2SAT 96
[2023-08-28 15:19] LABS: Glucose, Whole Blood 216 mg/dL (60-115)
[2023-08-28] MEDS: Enoxaparin Sodium 40 MG/0.4 ML SYRINGE SUBCUT (17:01)
[2023-08-28 19:21] VITALS: BP 142/69; PULSE 69; RESP 16; TEMP 36.1; O2SAT 96
[2023-08-28 20:48] LABS: Glucose, Whole Blood 127 mg/dL (60-115)
[2023-08-28] MEDS: Atorvastatin Calcium 20 MG TABLET PO (21:04)
[2023-08-29 03:12] VITALS: BP 168/80; PULSE 70; RESP 16; TEMP 36; O2SAT 98
[2023-08-29] MEDS: Piperacillin Sodium/Tazobactam 3.375 GM in 0.9 % Sodium Chloride 50 ML IV ×4 (05:25→23:41)
[2023-08-29 06:55] LABS: Creatinine Clr Calc Pharmacy 94.6; Estimated Glomerular Filt Rate > 60
[2023-08-29 07:27] VITALS: BP 162/74; PULSE 71; RESP 16; TEMP 36.1; O2SAT 95
[2023-08-29 07:38] LABS: Glucose, Whole Blood 140 mg/dL (60-115)
[2023-08-29] MEDS: Multivitamin TABLET 1 TAB PO (08:21)
[2023-08-29] MEDS: 0.9 % Sodium Chloride Flush 3 ML SYRINGE IVFLUSH ×3 (08:21→21:17)
[2023-08-29 09:34] LABS: Vancomycin Random 14.7 mcg/mL (15-20)
--- NOTE | 2023-08-29 09:56 | HE.PHANOTE ---
RE: VANCO DOSING Random came back as 14.7. Continue with dose of 1000 mg q12h (predicted NEF=783 and trough=14). Next random is scheduled for 08/30/23 @0900.
[2023-08-29] MEDS: vancomycin HCL 1,000 MG in 0.9 % Sodium Chloride 250 ML 270 MG IV ×2 (10:42→22:36)
--- NOTE | 2023-08-29 11:01 | PM.CNGS ---
History of Present Illness Consult details Consult date: 08/29/23 Reason for consult: wound care Narrative: Very pleasant 63-year-old gentleman presents for evaluation regarding left great toe amp site. Was originally amp on 07/21/2023. Has been somewhat nonhealing in particular the great toe site and the 2nd toe site. Overall appears to be doing relatively well otherwise. Now presents for vascular follow-up Review of Systems Review of Systems: Yes all other systems are reviewed and are negative Constitutional: Constitutional: Reports no additional constitutional complaints ENT: Reports Normal hearing present Cardiovascular: Cardiovascular: Denies chest pain, Denies chest pain at rest, Denies chest pain with activity and Denies pedal edema Respiratory: Respiratory: Denies cough Gastrointestinal: Gastrointestinal: Denies abdominal pain Musculoskeletal: Musculoskeletal: Denies abnormal gait, Denies muscle cramps and Denies radiating pain into limb Integumentary/Breasts: Skin/Breast: Denies skin ulcer and Denies wounds Neurologic: Reports Normal hearing present and Denies abnormal gait Psychiatric: Psychiatric: Reports no additional psychiatric complaints [facility] Past Medical History Medical History (Updated 08/27/23 @ 15:53 by RAQUEL Hawthorne) Amputation of left great toe Osteomyelitis Anxiety HTN (hypertension) Type 2 diabetes mellitus Social History Social History Household Members: None Housing: House Do you presently have visiting nurse or other home services: No Alcohol intake: never Patient Tobacco Use Status: Never used Tobacco Smoked in Last 30 Days: No Use of substances other than those prescribed or required for medical reasons: No Currently Displaying Signs/Symptoms of Drug Intoxication Withdrawal: No Have you been hit, kicked, punched, or otherwise hurt by someone within the past year? If so, by whom?: No Advance Directives: No Do you have a plan to hurt others: No Plan Recently lost weight without trying: No Nutrition Risks: No Nutritional Risk Poor oral hygiene: No Meds Allergies Allergy/AdvReac Type Severity Reaction Status Date / Time No Known Allergies Allergy Verified 08/27/23 09:43 Active Medications: Current Medications Acetaminophen (Acetaminophen 325 Mg Tablet) 650 mg PO Q6H PRN PRN Reason: Pain, Mild (Pain Scale 1-3), fever or headache Atorvastatin Calcium (Atorvastatin Calcium 20 Mg Tablet) 20 mg PO BEDTIME [facility] Last Admin: 08/28/23 21:04 Dose: 20 mg Benzonatate (Benzonatate 100 Mg Capsule) 100 mg PO TID PRN PRN Reason: Cough Calcium Carbonate (Calcium Carbonate 750 Mg Tab.Chew) 750 mg PO Q4H PRN PRN Reason: Heartburn Enoxaparin Sodium (Enoxaparin Sodium 40 Mg/0.4 Ml Syringe) 40 mg SUBCUT Q24H [facility] Last Admin: 08/28/23 17:01 Dose: 40 mg Glucose (Glucose Gel 15 Gm Gel..Gram.) 15 gm PO Q15M PRN; Protocol PRN Reason: per Hypoglycemia Standing Ord. Piperacillin Sod/Tazobactam (Sod 3.375 gm/ Sodium Chloride) 50 mls @ 100 mls/hr IV Q6H [facility] Last Infusion: 08/29/23 05:55 Dose: Infused Dextrose (D10) 250 mls @ 750 mls/hr IV Q15M PRN; Protocol PRN Reason: per Hypoglycemia Standing Ord. Vancomycin HCl 1,000 mg/ (Sodium Chloride) 270 mls @ 270 mls/hr IV Q12H [facility] Last Admin: 08/29/23 10:42 Dose: 270 mls/hr Insulin Human Lispro (Insulin Lispro 100 Unit/Ml 3 Ml Vial) 0 unit SUBCUT QIDACHS [facility]; Protocol Last Admin: 08/29/23 07:43 Dose: Not Given Magnesium Hydroxide (Milk Of Magnesia 30 Ml Oral.Susp) 30 ml PO DAILY PRN PRN Reason: Constipation Melatonin (Melatonin 3 Mg Tablet) 6 mg PO BEDTIME PRN PRN Reason: Insomnia Multivitamins/Vitamin C (Multivitamin Tablet) 1 tab PO DAILY [facility] Last Admin: 08/29/23 08:21 Dose: 1 tab Ondansetron HCl (Ondansetron Hcl 4 Mg/2 Ml Vial) 4 mg IVPUSH Q8H PRN PRN Reason: Nausea and Vomiting Pharmacy Consult (Consult Rx Vancomycin Dosing) 1 each MISCELLANE DAILY PRN PRN Reason: Consult order Sodium Chloride (0.9 % Sodium Chloride Flush 3 Ml Syringe) 3 ml IVFLUSH QSHIFT [facility] Last Admin: 08/29/23 08:21 Dose: 3 ml Home Medications ?Medication ?Instructions ?Recorded ?Confirmed ?Last Taken ?Type metformin 1,000 mg tablet 1,000 mg PO BIDWM 05/08/27/23 08/27/23 History multivitamin 1 tab PO DAILY 07/11/23 08/27/23 08/27/23 History acetaminophen 325 mg tablet 650 mg PO Q6H PRN Pain 08/27/23 08/27/23 Unknown History (Tylenol) aspirin 81 mg tablet,delayed 81 mg PO DAILY 08/27/23 08/27/23 08/27/23 History release rosuvastatin 5 mg tablet 5 mg PO BEDTIME cholesterol 08/27/23 08/27/23 08/26/23 History Physical Exam Vital Signs: Vital Signs: Last Vital Signs Temp 96.9 F 08/29/23 07:27 Pulse 71 08/29/23 07:27 Resp 16 08/29/23 07:27 BP 162/74 H 08/29/23 07:27 Pulse Ox 95 08/29/23 07:27 O2 Del Method Room Air 08/29/23 07:27 BMI result Body Mass Index 31.9 Const: General: cooperative, healthy appearing and comfortable Orientation/consciousness: oriented to person, oriented to place and oriented to time HEENT: Head: Yes normal to inspection Neck: Neck: Yes normal visual inspection Carotids: no bruits Chest: Chest palpation & inspection: normal inspection of the chest Resp: Effort & Inspection: normal respiratory effort and able to speak in complete sentences Auscultation: clear to auscultation bilaterally, no crackles, no rales, no rhonchi and no wheezes Cardio: Other: Right side palpable posterior tibial pulse Rate: regular rate Rhythm: regular rhythm Heart sounds: S1 normal heart sound present and S2 normal heart sound present Bruits: no carotid bruits Peripheral pulses: Peripheral pulses 2+ throughout GI: Inspection: Yes normal to inspection Skin: Wounds: no wounds Hair: normal Neuro: General: oriented to person, oriented to place and oriented to time Cranial nerves: Yes CN's II-XII intact bilaterally and Yes Normal hearing present Cognition (Neuro): normal cognition Motor exam (neuro): 5/5 motor strength present throughout Extrem: Other: venous exam: No significant superficial varicosities or spider telangiectasias, minimal edema General: No clubbing, No cyanosis and No edema Psych: Appearance: grossly normal Mental Status: mental status grossly normal Speech and movement: Normal speech and movement present Results Labs 08/27/23 10:52 07/01/24 05:55 Labs: Abnormal lab results 08/28/23 08/28/23 08/28/23 Range/Units 11:06 15:14 20:44 POC Glucose 193 H 216 H 127 H (60-115) mg/dL Random Vancomycin (15-20) mcg/mL 08/29/23 08/29/23 Range/Units 07:31 09:04 POC Glucose 140 H (60-115) mg/dL Random Vancomycin 14.7 L (15-20) mcg/mL BMP 08/29/23 05:55 Creatinine 0.81 All other labs normal. Assessment and Plan (1) PAD (peripheral artery disease): Status: Acute Plan In short patient has nonhealing left great toe amp site. It does not appear to penetrate down to bone. He does have a fair amount of superficial slough and cellulitis surrounding that in addition he has a 2nd toe ulcer. At the current time would manage this conservatively with and biotics. Local wound care. He can follow up with us as an outpatient. Thank you for allowing us to assist in his care. Procedures Date of Service Date of Service: 08/29/23
[2023-08-29 11:21] LABS: Glucose, Whole Blood 182 mg/dL (60-115)
--- NOTE | 2023-08-29 11:22 | HO.WOUND ---
Wound Consult: Initial 63yr old?Male admitted to [facility] on 08/27/23 - See progress notes and H&P for detailed history.? Wound consult placed for Left Great toe amputation site and 2nd toe wound POA.? Patient agreeable to assessment and photo documentation.? Chart review reveals patient is followed by Dr. Munguia and in June had an amputation the to the left great toe - Dr Munguia is following and consulted on this patient we discussed and photos review he is agreeable to Santyl for enzymatic debridement. Patient whoudl continue to follow outpt with Dr. Munguia and consider Outpt wound clinic for continued wound care. Left Great Toe Amputation site Etiology: ??Nonhealing surgical site Measurements: 1.8cm x 1.6cm x 1.2cm Wound Bed: moist fibrinous blair wiley necrotic tissue - did not probe to bone Drainage / Odor: Foul smelling odor Edges: ?unattached Iraj wound: ?hyperpigmented tissue - swelling noted, +pp noted Pain: denies pain Goals of Treatment: ? Santyl for enzymatic debridement Left 2nd toe tip - Diabetic wound Etiology: ?? Diabetic wound Measurements: 1cm x 1cm x 0.2cm Wound Bed: adherent yellow wiley slough Drainage / Odor: creamy purulent drainage Edges: ? irregular Iraj wound: ?red erythema, swelling noted Pain: denies pain Goals of Treatment: ? santly for enzymatic debridement Recommendations: 1. Turn and Reposition every 2 hours and as needed for patient comfort.? Use pillows or wedges to support off loading positions. 2. Off Load all bony prominences with use of pillows and heel boots if needed.? Apply Preventative foams where needed. ? 3. Monitor for incontinence and moisture control, use barrier creams when needed for prevention and treatment. 4. Provide adequate and supplemental nutrition.? 5. When applicable maintain blood glucose levels per Providers order. 6. Left Great Toe and 2nd Toe - Elevate lower leg on pillows float heel off of surface of bed. Cleanse with normal saline, pat dry. ?Apply barrier wipe to the immediate iraj wound, apply thick layer of Santyl to entire wound bed, cover with NS moist gauze, cover with gauze, ABD pad and Gauze Wrap. Change Daily. Wound Clinic Follow up Recommend follow up out patient Wound Clinic at [address] [place] [id number] and to call for an appointment at time of discharge. [phone].? Dr Munguia Follow up Recommend Dr. Munguia Vascular Surgeon for outpatient follow up.? His office is located at [address] [place] [address] [id number], [place] [address], call for an appointment at time of discharge [phone] Re-consult wound care Nurse for wound deterioration or wound changes.
--- NOTE | 2023-08-29 11:53 | MHC.CM.PN ---
CM MET WITH PT AT BEDSIDE. PT LIVES WITH SON AND IS INDEPENDENT AT BASELINE. +HCP PCP KADEEM DELA CRUZ DP: HOME, PT UNABLE TO HAVE SERVICES DUE TO INSURANCE LIMITATIONS. SON WILL TRANSPORT. CM WILL CONINUE TO FOLLOW FOR ANY CHANGE TO DC PLAN/NEEDS.
[2023-08-29] MEDS: Insulin Lispro 100 UNIT/ML 3 ML VIAL SUBCUT ×3 (12:06→21:17)
--- NOTE | 2023-08-29 13:14 | HO.PM.IMPN ---
Subjective Subjective Date of Service: 08/29/23 Interval History: This history was taken in [place] from the patient. Denies fever/chills or foot pain Review of Systems Review of Systems: Yes all other systems are reviewed and are negative Physical Exam Vital Signs: Vital Signs: Last Vital Signs Temp 96.9 F 08/29/23 07:27 Pulse 71 08/29/23 07:27 Resp 16 08/29/23 07:27 BP 162/74 H 08/29/23 07:27 Pulse Ox 95 08/29/23 07:27 O2 Del Method Room Air 08/29/23 07:27 BMI result Body Mass Index 31.9 Gen: in no acute distress HEENT: sclera anicteric, moist mucus membranes Neck: supple Lungs: clear to auscultation bilaterally Heart: regular rate and rhythm, no murmurs Abd: soft, non-tender, non-distended Ext: L 1st toe amputation site + L 2nd toe with purulent discharge Skin: warm/well-perfused Neuro: alert and oriented x3, no focal findings Psych: appropriate affect Objective Data Active Medications Acetaminophen (Acetaminophen 325 Mg Tablet) 650 mg PO Q6H PRN PRN Reason: Pain, Mild (Pain Scale 1-3), fever or headache Atorvastatin Calcium (Atorvastatin Calcium 20 Mg Tablet) 20 mg PO BEDTIME [facility] Last Admin: 08/28/23 21:04 Dose: 20 mg Documented By: CARRILLO Benzonatate (Benzonatate 100 Mg Capsule) 100 mg PO TID PRN PRN Reason: Cough Calcium Carbonate (Calcium Carbonate 750 Mg Tab.Chew) 750 mg PO Q4H PRN PRN Reason: Heartburn Collagenase (Collagenase Clostridium Hist. 30 Gm Tube) 1 appl TOPICAL DAILY [facility]; Protocol Enoxaparin Sodium (Enoxaparin Sodium 40 Mg/0.4 Ml Syringe) 40 mg SUBCUT Q24H [facility] Last Admin: 08/28/23 17:01 Dose: 40 mg Documented By: BONNIE Glucose (Glucose Gel 15 Gm Gel..Gram.) 15 gm PO Q15M PRN; Protocol PRN Reason: per Hypoglycemia Standing Ord. Piperacillin Sod/Tazobactam (Sod 3.375 gm/ Sodium Chloride) 50 mls @ 100 mls/hr IV Q6H [facility] Last Admin: 08/29/23 12:42 Dose: 100 mls/hr Documented By: MARINA Dextrose (D10) 250 mls @ 750 mls/hr IV Q15M PRN; Protocol PRN Reason: per Hypoglycemia Standing Ord. Vancomycin HCl 1,000 mg/ (Sodium Chloride) 270 mls @ 270 mls/hr IV Q12H [facility] Last Infusion: 08/29/23 12:09 Dose: Infused Documented By: MARINA Insulin Human Lispro (Insulin Lispro 100 Unit/Ml 3 Ml Vial) 0 unit SUBCUT QIDACHS [facility]; Protocol Last Admin: 08/29/23 12:06 Dose: 2 unit Documented By: MARINA Magnesium Hydroxide (Milk Of Magnesia 30 Ml Oral.Susp) 30 ml PO DAILY PRN PRN Reason: Constipation Melatonin (Melatonin 3 Mg Tablet) 6 mg PO BEDTIME PRN PRN Reason: Insomnia Multivitamins/Vitamin C (Multivitamin Tablet) 1 tab PO DAILY [facility] Last Admin: 08/29/23 08:21 Dose: 1 tab Documented By: MARINA Ondansetron HCl (Ondansetron Hcl 4 Mg/2 Ml Vial) 4 mg IVPUSH Q8H PRN PRN Reason: Nausea and Vomiting Pharmacy Consult (Consult Rx Vancomycin Dosing) 1 each MISCELLANE DAILY PRN PRN Reason: Consult order Sodium Chloride (0.9 % Sodium Chloride Flush 3 Ml Syringe) 3 ml IVFLUSH QSHIFT [facility] Last Admin: 08/29/23 08:21 Dose: 3 ml Documented By: MARINA Labs 08/27/23 10:52 08/29/23 05:55 Labs: Laboratory Results - last 24 hr 08/28/23 08/28/23 08/29/23 15:14 20:44 05:55 Estim Creat Clear Calc 94.6 Estimated GFR > 60 POC Glucose 216 H 127 H Random Vancomycin 08/29/23 08/29/23 08/29/23 07:31 09:04 11:16 Estim Creat Clear Calc Estimated GFR POC Glucose 140 H 182 H Random Vancomycin 14.7 L Microbiology Microbiology Results: Microbiology 08/27/23 10:52 Blood Culture - Preliminary Blood - Venous No growth after 48 hours. 08/27/23 11:22 Blood Culture - Preliminary Blood - Venous No growth after 24 hours. Assessment and Plan (1) Elevated lactic acid level: Status: Acute (2) Cellulitis of left foot: Status: Acute (3) Uncontrolled type 2 diabetes mellitus with hyperglycemia: Status: Acute Plan d3 63yo M with HLD, DM2, hx osteomyelitis s/p L great toe amputation 07/21/23, chronic resting tremor, anxiety presenting with infection of amputation site purulent cellulitis DM foot ulcer at amuptation site - Vasc Surg consulted- recommend continued ABX treatment - Wound Care consulted- recommend Santyl daily - ID consultation pending; continue vanco + pip-monico both started 08/26- - follow BCx lactic acidosis - due to MTF< not sepsis DM2, A1c 9.4 - hold MTF, continue corrr-dose lispro resting tremor - outpt Neurology eval VTE ppx - LMWH dispo - eventual home with [facility] for wound care In my clinical judgment, the patient requires continued inpatient hospitalization for the following reasons: IV ABX + specialist consultation Total time managing care of this patient today: 40 minutes. Quality Stroke Does the patient have a stroke diagnosis?: No VTE Prior VTE?: No VTE Risk Level:: Medical - moderate - high VTE Device Contraindication: Treatment Not Indicated VTE Drug Contraindication: N/A - Med Ordered
[2023-08-29 15:20] VITALS: BP 143/83; PULSE 77; RESP 15; TEMP 36.3; O2SAT 96
--- NOTE | 2023-08-29 15:50 | W.PM.IDCN ---
History of Present Illness Data of Consult Service Date: 08/29/23 Requesting physician: Kathy aGrg Primary Care Provider: MUNA Espinoza HPI Reason for consult: left foot site nonhealing He has discomfort and malodor and drainage from left amputation site which never healed. He had OM left great toe and this removed 07/20. Since then he has had nonhealing wound site. He has negative cultures. Review of Systems Review of Systems: Yes all other systems are reviewed and are negative [facility] Past Medical History Medical History (Updated 08/29/23 @ 15:54 by Lian Powell MD) Amputation of left great toe Osteomyelitis Anxiety HTN (hypertension) Type 2 diabetes mellitus Family History Family history: reviewed and not pertinent Social History Social History Household Members: None Housing: House Do you presently have visiting nurse or other home services: No Alcohol intake: never Patient Tobacco Use Status: Never used Tobacco Smoked in Last 30 Days: No Use of substances other than those prescribed or required for medical reasons: No Currently Displaying Signs/Symptoms of Drug Intoxication Withdrawal: No Have you been hit, kicked, punched, or otherwise hurt by someone within the past year? If so, by whom?: No Advance Directives: No Do you have a plan to hurt others: No Plan Recently lost weight without trying: No Nutrition Risks: No Nutritional Risk Poor oral hygiene: No service: No Meds Allergies Allergy/AdvReac Type Severity Reaction Status Date / Time No Known Allergies Allergy Verified 08/27/23 09:43 Active Medications: Current Medications Acetaminophen (Acetaminophen 325 Mg Tablet) 650 mg PO Q6H PRN PRN Reason: Pain, Mild (Pain Scale 1-3), fever or headache Atorvastatin Calcium (Atorvastatin Calcium 20 Mg Tablet) 20 mg PO BEDTIME MARLO Last Admin: 08/28/23 21:04 Dose: 20 mg Benzonatate (Benzonatate 100 Mg Capsule) 100 mg PO TID PRN PRN Reason: Cough Calcium Carbonate (Calcium Carbonate 750 Mg Tab.Chew) 750 mg PO Q4H PRN PRN Reason: Heartburn Collagenase (Collagenase Clostridium Hist. 30 Gm Tube) 1 appl TOPICAL DAILY MARLO; Protocol Enoxaparin Sodium (Enoxaparin Sodium 40 Mg/0.4 Ml Syringe) 40 mg SUBCUT Q24H MARLO Last Admin: 08/28/23 17:01 Dose: 40 mg Glucose (Glucose Gel 15 Gm Gel..Gram.) 15 gm PO Q15M PRN; Protocol PRN Reason: per Hypoglycemia Standing Ord. Piperacillin Sod/Tazobactam (Sod 3.375 gm/ Sodium Chloride) 50 mls @ 100 mls/hr IV Q6H COUNT INCLUDES THE [facility] Last Infusion: 08/29/23 13:49 Dose: Infused Dextrose (D10) 250 mls @ 750 mls/hr IV Q15M PRN; Protocol PRN Reason: per Hypoglycemia Standing Ord. Vancomycin HCl 1,000 mg/ (Sodium Chloride) 270 mls @ 270 mls/hr IV Q12H COUNT INCLUDES THE [facility] Last Infusion: 08/29/23 12:09 Dose: Infused Insulin Human Lispro (Insulin Lispro 100 Unit/Ml 3 Ml Vial) 0 unit SUBCUT QIDACHS COUNT INCLUDES THE [facility]; Protocol Last Admin: 08/29/23 12:06 Dose: 2 unit Magnesium Hydroxide (Milk Of Magnesia 30 Ml Oral.Susp) 30 ml PO DAILY PRN PRN Reason: Constipation Melatonin (Melatonin 3 Mg Tablet) 6 mg PO BEDTIME PRN PRN Reason: Insomnia Multivitamins/Vitamin C (Multivitamin Tablet) 1 tab PO DAILY COUNT INCLUDES THE [facility] Last Admin: 08/29/23 08:21 Dose: 1 tab Ondansetron HCl (Ondansetron Hcl 4 Mg/2 Ml Vial) 4 mg IVPUSH Q8H PRN PRN Reason: Nausea and Vomiting Pharmacy Consult (Consult Rx Vancomycin Dosing) 1 each MISCELLANE DAILY PRN PRN Reason: Consult order Sodium Chloride (0.9 % Sodium Chloride Flush 3 Ml Syringe) 3 ml IVFLUSH QSHIFT COUNT INCLUDES THE [facility] Last Admin: 08/29/23 08:21 Dose: 3 ml Home Medications ?Medication ?Instructions ?Recorded ?Confirmed ?Last Taken ?Type metformin 1,000 mg tablet 1,000 mg PO BIDWM 07/11/23 08/27/23 08/27/23 History multivitamin 1 tab PO DAILY 07/11/23 08/27/23 08/27/23 History acetaminophen 325 mg tablet 650 mg PO Q6H PRN Pain 08/27/23 08/27/23 Unknown History (Tylenol) aspirin 81 mg tablet,delayed 81 mg PO DAILY 08/27/23 08/27/23 08/27/23 History release rosuvastatin 5 mg tablet 5 mg PO BEDTIME cholesterol 08/27/23 08/27/23 08/26/23 History Physical Exam Vital Signs: Vital Signs: Last Vital Signs Temp 97.3 F 08/29/23 15:20 Pulse 77 08/29/23 15:20 Resp 15 08/29/23 15:20 BP 143/83 H 08/29/23 15:20 Pulse Ox 96 08/29/23 15:20 O2 Del Method Room Air 08/29/23 15:20 BMI result Body Mass Index 31.9 Const: General: cooperative HEENT: Head: Yes normal to inspection Face and sinus: Yes normal facial exam Mouth: Normal oral and palatal mucosa present Teeth and gingiva: dentition normal Eyes: General: appearance normal, both eyes and all related structures Pupils: Equal, round and reactive pupils present Resp: Effort & Inspection: normal respiratory effort Cardio: Rate: regular rate Rhythm: regular rhythm GI: Palpation (GI): Soft to palpation and nontender : General: Yes no CVA tenderness Back/Spine/Pelvis: Back: no CVA tenderness Skin: General skin exam: no rashes or lesions noted Neuro: General: moves all extremities Cranial nerves: Yes Equal, round and reactive pupils present Extrem: Other: left great toe amputation site some swelling and drainage base General: Yes normal to inspection Psych: Appearance: grossly normal Results Labs 08/27/23 10:52 08/29/23 05:55 Labs: BMP 08/29/23 05:55 Creatinine 0.81 Microbiology Microbiology Results: Microbiology 08/27/23 11:22 Blood - Venous Blood Culture - Preliminary No growth after 48 hours. 08/27/23 10:52 Blood - Venous Blood Culture - Preliminary No growth after 48 hours. Assessment and Plan (1) Elevated lactic acid level: Status: Acute OM likely per first metatarsal on XRay. There are no definitive cultures. Would give IV Ertapenem and Vancomycin or Daptomycin for six weeks with weekly CBC,creatinine and CK Follow Vascular also. Prognosis guarded.
--- NOTE | 2023-08-29 16:06 | P.EN_ITS ---
Event Note Date of Service: 08/29/23 Event Note: patient seen with raul Betancourt and all interview and questions in [place] Time Spent With Patient Time: Total time managing care of this patient today ____ minutes.
[2023-08-29 16:12] LABS: Glucose, Whole Blood 188 mg/dL (60-115)
[2023-08-29] MEDS: Collagenase Clostridium Hist. 30 GM TUBE 1 APPL TOPICAL (16:29)
[2023-08-29] MEDS: Enoxaparin Sodium 40 MG/0.4 ML SYRINGE SUBCUT (17:28)
[2023-08-29 19:43] VITALS: BP 147/80; RESP 16; TEMP 36.2; O2SAT 97
[2023-08-29 20:43] LABS: Glucose, Whole Blood 205 mg/dL (60-115)
[2023-08-29] MEDS: Atorvastatin Calcium 20 MG TABLET PO (21:17)
[2023-08-30 04:00] VITALS: BP 153/75; PULSE 71; RESP 16; TEMP 36; O2SAT 97
[2023-08-30] MEDS: Piperacillin Sodium/Tazobactam 3.375 GM in 0.9 % Sodium Chloride 50 ML IV ×2 (05:41→12:29)
[2023-08-30 07:19] LABS: Creatinine Clr Calc Pharmacy 95.8; Estimated Glomerular Filt Rate > 60
[2023-08-30 07:21] VITALS: BP 169/84; PULSE 74; RESP 16; TEMP 36; O2SAT 96
[2023-08-30 07:27] LABS: Glucose, Whole Blood 129 mg/dL (60-115)
[2023-08-30] MEDS: Multivitamin TABLET 1 TAB PO (08:22)
[2023-08-30] MEDS: 0.9 % Sodium Chloride Flush 3 ML SYRINGE IVFLUSH (08:23)
--- NOTE | 2023-08-30 08:53 | PC.NURSE ---
0850- Patient transported to IR for PICC line placement. 911 Operator at bedside for assistance.
--- NOTE | 2023-08-30 09:43 | HO.VASCPN ---
Subjective Subjective Date of Service: 08/30/23 Patient reports: no new complaints and feels better Interval history: Very pleasant 63-year-old gentleman presents for follow-up evaluation regarding nonhealing toe amputation site. Is the left great toe that was amputated on 07/21/2023. Of note the 2nd toe has been an issue for him as well. He now presents for routine follow-up. Of note he is getting a PICC line this morning. Physical Exam Vital Signs: Vital Signs: Last Vital Signs Temp 96.8 F 08/30/23 07:21 Pulse 74 08/30/23 07:21 Resp 16 08/30/23 07:21 BP 169/84 H 08/30/23 07:21 Pulse Ox 96 08/30/23 07:21 O2 Del Method Room Air 08/30/23 07:21 BMI result Body Mass Index 31.9 Const: General: cooperative, healthy appearing and no acute distress Orientation/consciousness: oriented to person, oriented to place and oriented to time HEENT: Head: Yes normal to inspection Neck: Carotids: no bruits Chest: Chest palpation & inspection: normal inspection of the chest Resp: Effort & Inspection: normal respiratory effort and able to speak in complete sentences Auscultation: clear to auscultation bilaterally Cardio: Rate: regular rate Heart sounds: S1 normal heart sound present and S2 normal heart sound present GI: Inspection: Yes normal to inspection Skin: Other: Left great toe open area and 2nd toe a braided dorsum of the foot General skin exam: no rashes or lesions noted Wounds: no wounds Neuro: General: oriented to person, oriented to place, oriented to time and CN's II-XI intact bilaterally Extrem: General: Yes normal to inspection, Yes full ROM and Yes no clubbing, cyanosis or edema Psych: Appearance: grossly normal and well kempt Speech and movement: Normal speech and movement present Affect: normal affect Progress Note: A&P Assessment and plan (1) PAD (peripheral artery disease): Status: Acute Assessment and Plan: In short amputation site appears to be nonhealing. There is surrounding cellulitis which does appear improved. Would like to have a trial of long-term antibiotics 1st. Hope to salvage the great toe amputation site along with the 2nd toe. At risk for further amputation. We did discuss risk factor modification in particular diabetes control. Thank you for allowing us to assist in his care Time Spent With Patient Time: Total time managing care of this patient today ____ minutes. Procedures Date of Service Date of Service: 08/30/23 Quality Stroke Does the patient have a stroke diagnosis?: No VTE Prior VTE?: No VTE Risk Level:: Medical - moderate - high VTE Device Contraindication: Treatment Not Indicated VTE Drug Contraindication: N/A - Med Ordered
--- NOTE | 2023-08-30 10:42 | HO.PICC ---
PICC Line Insertion NPICC Diagnosis: Osteomyelitis Indication: shelter antibiotics Pertinent Labs: Reviewed Technique: Following informed consent including risks, benefits and alternatives and using sterile technique including cap and mask, sterile gown, glove and drape, the right arm was prepped and draped in the usual sterile fashion of full barrier technique with CHG. Following completion of [place] Protocol the skin and soft tissues were anesthetized with 1% Lidocaine plain. Using ultrasound guidance, the right brachial vein access was obtained in a second attempt by this RN. Over an 0.018 wire through peel-away sheath, a single lumen 4 trinidadian PASV PICC line was positioned. Catheter length is 39 cm internal length, the external length is at the 0 external farrah, for a total trimmed length of 39 cm. The procedure was performed in S272. Tip verification was performed by Milton Jean Baptiste with Sherlock 3CG. Tip located in SVC. Ultrasound was used to document vein patency and for needle entry. A formal ultrasound picture and cardiac rhythm strip was recorded. Vascular [employer] Shop Supervisor has released the line for use and it is currently dressed with a StatLock, Tegaderm, and CHG disc. Verification has been performed for blood return and line patency. Arm Circumference: 32.5 cm Equipment: [facility] Inspar PowerPICC Solo Catheter with Sherlock 3 CG Tip Catheter Type: 4 trinidadian single lumen PASV PICC Lot #: [id number]
--- NOTE | 2023-08-30 10:58 | HO.PM.IMPN ---
Subjective Subjective Date of Service: 08/30/23 Interval History: some tingling in foot wound no fevers This history was taken in Slovak from the patient. Review of Systems Review of Systems: Yes all other systems are reviewed and are negative Physical Exam Vital Signs: Vital Signs: Last Vital Signs Temp 96.8 F 08/30/23 07:21 Pulse 74 08/30/23 07:21 Resp 16 08/30/23 07:21 BP 169/84 H 08/30/23 07:21 Pulse Ox 96 08/30/23 07:21 O2 Del Method Room Air 08/30/23 07:21 BMI result Body Mass Index 31.9 Gen: in no acute distress HEENT: sclera anicteric, moist mucus membranes Neck: supple Lungs: clear to auscultation bilaterally Heart: regular rate and rhythm, no murmurs Abd: soft, non-tender, non-distended Ext: L 1st toe amputation site + L 2nd toe with purulent discharge Skin: warm/well-perfused Neuro: alert and oriented x3, no focal findings Psych: appropriate affect Objective Data Active Medications Acetaminophen (Acetaminophen 325 Mg Tablet) 650 mg PO Q6H PRN PRN Reason: Pain, Mild (Pain Scale 1-3), fever or headache Atorvastatin Calcium (Atorvastatin Calcium 20 Mg Tablet) 20 mg PO BEDTIME MARLO Last Admin: 08/29/23 21:17 Dose: 20 mg Documented By: SHI Benzonatate (Benzonatate 100 Mg Capsule) 100 mg PO TID PRN PRN Reason: Cough Calcium Carbonate (Calcium Carbonate 750 Mg Tab.Chew) 750 mg PO Q4H PRN PRN Reason: Heartburn Collagenase (Collagenase Clostridium Hist. 30 Gm Tube) 1 appl TOPICAL DAILY MARLO; Protocol Last Admin: 08/29/23 16:29 Dose: 1 appl Documented By: MARINA Enoxaparin Sodium (Enoxaparin Sodium 40 Mg/0.4 Ml Syringe) 40 mg SUBCUT Q24H MARLO Last Admin: 08/29/23 17:28 Dose: 40 mg Documented By: MARINA Glucose (Glucose Gel 15 Gm Gel..Gram.) 15 gm PO Q15M PRN; Protocol PRN Reason: per Hypoglycemia Standing Ord. Piperacillin Sod/Tazobactam (Sod 3.375 gm/ Sodium Chloride) 50 mls @ 100 mls/hr IV Q6H [facility] Last Infusion: 08/30/23 06:14 Dose: Infused Documented By: SHI Dextrose (D10) 250 mls @ 750 mls/hr IV Q15M PRN; Protocol PRN Reason: per Hypoglycemia Standing Ord. Ertapenem 1 gm/ Sodium (Chloride) 50 mls @ 100 mls/hr IV ONCE ONE Stop: 08/30/23 11:22 Insulin Human Lispro (Insulin Lispro 100 Unit/Ml 3 Ml Vial) 0 unit SUBCUT QIDACHS [facility]; Protocol Last Admin: 08/30/23 07:30 Dose: Not Given Documented By: MARINA Non-Admin Reason: No Insulin Coverage Magnesium Hydroxide (Milk Of Magnesia 30 Ml Oral.Susp) 30 ml PO DAILY PRN PRN Reason: Constipation Melatonin (Melatonin 3 Mg Tablet) 6 mg PO BEDTIME PRN PRN Reason: Insomnia Multivitamins/Vitamin C (Multivitamin Tablet) 1 tab PO DAILY [facility] Last Admin: 08/30/23 08:22 Dose: 1 tab Documented By: MARINA Ondansetron HCl (Ondansetron Hcl 4 Mg/2 Ml Vial) 4 mg IVPUSH Q8H PRN PRN Reason: Nausea and Vomiting Sodium Chloride (0.9 % Sodium Chloride Flush 3 Ml Syringe) 3 ml IVFLUSH QSHIFT [facility] Last Admin: 08/30/23 08:23 Dose: 3 ml Documented By: MARINA Sodium Chloride (0.9 % Sodium Chloride Flush 10 Ml Syringe) 5 ml IVFLUSH TID [facility] Labs 08/27/23 10:52 08/30/23 05:39 Labs: Laboratory Results - last 24 hr 08/29/23 08/29/23 08/29/23 11:16 16:05 20:39 Hold Purple Top Estim Creat Clear Calc Estimated GFR POC Glucose 182 H 188 H 205 H Total Creatine Kinase 08/30/23 08/30/23 05:39 07:23 Hold Purple Top SEE NOTE Estim Creat Clear Calc 95.8 Estimated GFR > 60 POC Glucose 129 H Total Creatine Kinase 29 L Microbiology Microbiology Results: Microbiology 08/27/23 11:22 Blood Culture - Preliminary Blood - Venous No growth after 48 hours. 08/27/23 10:52 Blood Culture - Preliminary Blood - Venous No growth after 48 hours. Assessment and Plan (1) Elevated lactic acid level: Status: Acute (2) Cellulitis of left foot: Status: Acute (3) Uncontrolled type 2 diabetes mellitus with hyperglycemia: Status: Acute Plan d4 63yo M with HLD, DM2, hx osteomyelitis s/p L great toe amputation 07/21/23, chronic resting tremor, anxiety presenting with infection of amputation site purulent cellulitis/osteomyelitis 1st metatarsal DM foot ulcer at amputation site - Vasc Surg consulted- recommend continued ABX treatment, will try to salvage amputation site - Wound Care consulted- recommend Santyl daily - ID consulted- recommend dapto + ertapenem x 6wk; PICC placed today; BCx negative from 08/26; end date 10/07 lactic acidosis - due to MTF, not sepsis DM2, A1c 9.4 - hold MTF, continue corrr-dose lispro resting tremor - outpt Neurology eval VTE ppx - LMWH dispo - limited insurance, can't get VNA services, CM working with infusion company In my clinical judgment, the patient requires continued inpatient hospitalization for the following reasons: IV ABX Total time managing care of this patient today: 35 minutes. Quality Stroke Does the patient have a stroke diagnosis?: No VTE Prior VTE?: No VTE Risk Level:: Medical - moderate - high VTE Device Contraindication: Treatment Not Indicated VTE Drug Contraindication: N/A - Med Ordered
[2023-08-30 11:12] VITALS: BP 149/76; PULSE 90; RESP 18; TEMP 36.4; O2SAT 97
[2023-08-30 11:30] LABS: Glucose, Whole Blood 217 mg/dL (60-115)
[2023-08-30] MEDS: Insulin Lispro 100 UNIT/ML 3 ML VIAL SUBCUT ×3 (11:44→21:28)
[2023-08-30] MEDS: Ertapenem Sodium 1 GM in 0.9 % Sodium Chloride 50 ML IV (11:45)
--- NOTE | 2023-08-30 14:40 | MHC.CM.PN ---
CM MET WITH PT AND HANDMADE TILE ARTIST REGARDING DC PLAN WITH IV. PT INSURANCE WILL NOT COVER A SNF OR VNA. PT DOES NOT HAVE TRANSPORTATION TO [facility] [place] FOR OP INFUSION. PT GIVES PERMISSION TO SPEAK WITH HIS SON GERMAIN TO SEE IF HE IS WILLING TO LEARN THE IV. CALL PLACED TO GERMAIN WITH HANDMADE TILE ARTIST, MESSAGE LEFT TO RETURN CALL. PT ALSO AWARE OF THE COST OF HOME INFUSION VIA [facility] AND NURSING THROUGH [facility]. LIAISON FROM [facility] WILL SEE HIM IN THE AM TO DISCUSS. IS AWARE. CM WILL CONTINUE TO FOLLOW FOR PLAN AND AWAIT RETURN CALL FROM SON.
[2023-08-30 15:43] VITALS: BP 129/68; PULSE 93; RESP 19; TEMP 36.4; O2SAT 97
[2023-08-30] MEDS: Collagenase Clostridium Hist. 30 GM TUBE 1 APPL TOPICAL (15:58)
--- NOTE | 2023-08-30 16:18 | PC.NURSE ---
Dressing changed by Dr. Munguia at approximately 1600. Dressing C/D/I.
[2023-08-30 16:23] LABS: Glucose, Whole Blood 184 mg/dL (60-115)
[2023-08-30] MEDS: Enoxaparin Sodium 40 MG/0.4 ML SYRINGE SUBCUT (17:46)
[2023-08-30] MEDS: DAPTOmycin 700 MG in 0.9 % Sodium Chloride 50 ML 100.13 MG IV (17:46)
[2023-08-30] MEDS: 0.9 % Sodium Chloride Flush 10 ML SYRINGE 5 ML IVFLUSH ×2 (17:52→21:29)
[2023-08-30 19:42] VITALS: BP 152/87; PULSE 88; RESP 18; TEMP 36.1; O2SAT 96
[2023-08-30 20:16] LABS: Glucose, Whole Blood 206 mg/dL (60-115)
[2023-08-31 03:38] VITALS: BP 124/67; PULSE 78; RESP 18; TEMP 36.1; O2SAT 97
[2023-08-31 07:25] VITALS: BP 152/76; PULSE 72; RESP 18; TEMP 36.5; O2SAT 95
[2023-08-31 07:36] LABS: Glucose, Whole Blood 154 mg/dL (60-115)
[2023-08-31] MEDS: Ertapenem Sodium 1 GM in 0.9 % Sodium Chloride 50 ML IV (07:57)
[2023-08-31] MEDS: 0.9 % Sodium Chloride Flush 10 ML SYRINGE 5 ML IVFLUSH ×3 (07:57→21:42)
[2023-08-31] MEDS: Insulin Lispro 100 UNIT/ML 3 ML VIAL SUBCUT ×4 (07:57→21:42)
[2023-08-31] MEDS: 0.9 % Sodium Chloride Flush 3 ML SYRINGE IVFLUSH ×2 (07:57→16:56)
[2023-08-31] MEDS: Multivitamin TABLET 1 TAB PO (07:57)
[2023-08-31] MEDS: Collagenase Clostridium Hist. 30 GM TUBE 1 APPL TOPICAL (07:59)
[2023-08-31 11:20] LABS: Glucose, Whole Blood 185 mg/dL (60-115)
--- NOTE | 2023-08-31 14:01 | MHC.CM.PN ---
Addendum entered by Arcelia Galeas 08/31/23 16:20: PT'S INSURANCE WILL NOT COVER DAPTOMYCIN RX, WILL CHANGE MEDICATION TO VANCOMYCIN. DC WILL BE CANCELLED FOR TODAY. RN AWARE. CM WILL CONTINUE TO FOLLOW FOR ANY CHANGE TO DC PLAN. Addendum entered by Arcelia Galeas 08/31/23 14:15: DP: PT HAS BEEN MEDICALLY CLEARED FOR DC HOME WITH [facility] FOR IV OVERSIGHT/NURSING FOR IV DRESSING CHANGES. RN HAS DONE FOOT DRESSING TEACH WITH SON WELL. SON WILL TRANSPORT HOME. Original Note: [facility] LIAISON IN TO DO A TEACH FOR IV RX WITH SON GERMAIN. TEACH WENT WELL AND PT WILL DC WITH [facility] SERVICES FOR IV OVERSIGHT/IV DRESSING CHANGES BY NURSING, MEDICATION AND SUPPLIES. PT WILL NEED A DOSE OF DAPTOMYCIN BEFORE DC TODAY, MD NOTIFIED.
--- NOTE | 2023-08-31 14:15 | P.DS_ITS ---
DS: Providers Provider Date of Service: 09/02/23 Date of admission: 08/27/23 15:28 Date of discharge: 09/02/23 Primary care physician: MUNA Espinoza Consults: 08/27/23 15:28 Consult to Vascular Surgery Routine Consulting Provider: [facility] Reason for consultation: Cellulitis at l. great toe amp site. ?osteo 08/29/23 01:17 Consult to Wound Care Routine Reason for consultation: Diabetic ulcer to L foot 08/29/23 13:12 Consult to Infectious Diseases Routine Consulting Provider: [facility] Reason for consultation: osteomeytliis amputation site DS: Diagnosis Discharge Diagnosis (1) Diabetic osteomyelitis: Status: Acute (2) Diabetic foot ulcer: Status: Acute (3) Amputation stump infection: Status: Acute DS: Summary Hospital Course Hospital Course: From the history and physical by the admitting hospitalist, RAQUEL Hawthorne, 08/27/23: Pt is a 63-year-old male with a PMH significant for?HLD, bar-hcvhpsx-[id number] type 2 diabetes, hx of osteomyelitis s/p left great toe amputation on 07/21/2023, chronic resting tremor, and anxiety who presents to the ED complaining of left foot infection. Patient was recently hospitalized on 07/10 for osteomyelitis of left great toe which was subsequently amputated on 07/[address] Munguia. Patient states after discharge did well, though began noticing increasing redness, swelling, pain, and purulent discharge from amputation site as well as redness, pain, and swelling of 2nd digit of left toe 3 days ago. Denies fever, chills. No nausea or vomiting. Denies chest pain/pressure, palpitations. No shortness a breath or difficulty breathing. Denies abdominal pain. During last admission pt's A1c was Pt notes he was on insulin while in the hospital but has not yet followed up outpatient with his PCP and not on home In the ED pt was tachycardic up to 91 and hypertensive up to 173/86. Labs were significant for ESR 44, potassium 5.2 (with slight hemolysis), fasting glucose 212, lactic acid 3.0, alk-phos 140, CRP 1.95. X-ray of left foot shows subtle radiolucency at the head of the 1st metatarsal raising possibility of osteomyelitis. Pt was treated with IVF, vanc and Zosyn. Pt will be admitted to the hospital for treatment and further evaluation of left foot cellulitis in the setting of non-healing diabetic foot ulcer at previous amputation site. 63yo M with HLD, DM2, hx osteomyelitis s/p L great toe amputation 07/21/23, chronic resting tremor, and anxiety presenting with infection of amputation site for which he was admitted to the medical-surgical unit with Infectious Disease and Vascular Surgery consultations. The surgeon recommended antibiotic treatment to salvage the amputation site. The infectious disease specialist recommended 6 weeks of vancomycin [because daptomycin is not covered by his insurance] and ertapenem. PICC was placed on 07/31/23. He was discharged home with infusion services; end date of antibiotics is 10/08/23. During the course of antibiotics, he should have weekly CBCd, vancomycin trough, and SCr checked. He should follow up with Infectious Disease in 1 week and Vascular Surgery in 2 weeks. For wound care, Santyl should be applied to the wound daily and he should follow up with the [facility]. [For his chronic resting tremor, outpatient neurology consultation could be considered] Time Attestation Discharge Coordination Time (in mins): 45 Quality: Safe Use of Opioids Does Pt have an Active Cancer Diagnosis on the Problem List?: No Quality: Stroke Does the patient have a stroke diagnosis?: No Physical Exam Vital Signs: Vital Signs: Temp Pulse Resp BP Pulse Ox O2 Del Method 97.5 F 80 16 143/77 H 96 Room Air 09/02/23 07:12 09/02/23 07:12 09/02/23 07:12 09/02/23 07:12 09/02/23 07:12 09/02/23 07:12 Gen: in no acute distress HEENT: sclera anicteric, moist mucus membranes Neck: supple Lungs: clear to auscultation bilaterally Heart: regular rate and rhythm, no murmurs Abd: soft, non-tender, non-distended Ext: L 1st toe amputation site + L 2nd toe tip with ulcers Skin: warm/well-perfused Neuro: alert and oriented x3, no focal findings Psych: appropriate affect DS: Data Data Completed and Pending Completed studies during hospitalization [Text1]: Laboratory Results WBC 6.7 X10*3/uL (4.8-10.8) 08/27/23 10:52 RBC 4.12 X10*6/uL (4.60-5.80) L 08/27/23 10:52 Hgb 12.3 g/dl (14.0-18.0) L 08/27/23 10:52 Hct 36.2 % (42.0-52.0) L 08/27/23 10:52 MCV 87.9 fL (80.0-98.0) 08/27/23 10:52 MCH 29.9 pg (27.0-33.0) 08/27/23 10:52 MCHC 34.0 g/dl (31.0-36.0) 08/27/23 10:52 RDW 12.8 % (11.0-16.0) 08/27/23 10:52 Plt Count 254 X10*3/uL (160-400) 08/27/23 10:52 MPV 10.0 fL (9.4-12.4) 08/27/23 10:52 Immature Gran % (Auto) 0.3 % (0.0-0.4) 08/27/23 10:52 Neut % (Auto) 71.6 % (45-73) 08/27/23 10:52 Lymph % (Auto) 17.8 % (20-40) L 08/27/23 10:52 Early % (Auto) 7.5 % (2-11) 08/27/23 10:52 Eos % (Auto) 2.1 % (0-4) 08/27/23 10:52 Baso % (Auto) 0.7 % (0-2) 08/27/23 10:52 Lymph # (Auto) 1.2 X10*3/uL (1.2-4.9) 08/27/23 10:52 Early # (Auto) 0.5 X10*3/uL (0.1-1.2) 08/27/23 10:52 Eos # (Auto) 0.1 X10*3/uL (0.0-0.4) 08/27/23 10:52 Baso # (Auto) 0.1 X10*3/uL (0.0-0.2) 08/27/23 10:52 Abs Immat Gran (auto) 0.02 X10*3/uL (0.00-0.03) 08/27/23 10:52 Absolute Neuts (auto) 4.8 x10*3/uL (2.0-8.3) 08/27/23 10:52 Absolute Nucleated RBC 0.000 X10*3/uL (0.0-0.012) 08/27/23 10:52 Nucleated RBC % (auto) 0.0 /100WBC (0.0-0.2) 08/27/23 10:52 ESR 44 MM/HR (0-15) H 08/27/23 10:52 Hold Purple Top SEE NOTE 08/30/23 05:39 Sodium 138 mmol/L (135-145) 08/28/23 05:45 Potassium 3.9 mmol/L (3.3-5.1) D 08/28/23 05:45 Chloride 107 mmol/L (96-108) 08/28/23 05:45 Carbon Dioxide 23 mmol/L (22-29) 08/28/23 05:45 Anion Gap 12 (12-20) 08/28/23 05:45 BUN 13 mg/dL (9-16) 08/28/23 05:45 Creatinine 0.79 mg/dL (0.5-1.4) 09/02/23 07:40 Estim Creat Clear Calc 97.0 09/02/23 07:40 Estimated GFR > 60 09/02/23 07:40 POC Glucose 214 mg/dL (60-115) H 09/02/23 11:07 Random Glucose 182 mg/dL (60-115) H 08/28/23 05:45 Estimat Average Glucose 223 mg/dL 08/27/23 10:52 Hemoglobin A1c % 9.4 % (<6.0) H 08/27/23 10:52 Lactic Acid 3.0 mmol/L (0.5-2.0) H* 08/27/23 10:52 Lactic Acid F/U @ 2Hr 3.0 mmol/L (0.5-2.0) H* 08/27/23 15:35 Lactic Acid F/U @ 4Hr 1.5 mmol/L (0.5-2.0) 08/27/23 18:13 Calcium 9.3 mg/dL (8.4-10.2) 08/28/23 05:45 Total Bilirubin 0.6 mg/dL (0.0-1.0) 08/27/23 10:52 Direct Bilirubin 0.2 mg/dL (0.0-0.5) 08/27/23 10:52 AST 17 U/L (5-37) 08/27/23 10:52 ALT 13 U/L (0-40) 08/27/23 10:52 Alkaline Phosphatase 140 U/L (39-117) H 08/27/23 10:52 Total Creatine Kinase 29 U/L (38-174) L 08/30/23 05:39 C-Reactive Protein 1.95 mg/dL (< or = 0.50) H 08/27/23 10:52 Total Protein 7.6 g/dL (6.5-8.0) 08/27/23 10:52 Albumin 4.3 g/dL (3.5-5.0) 08/27/23 10:52 Random Vancomycin 15.8 mcg/mL (15-20) 09/01/23 18:01 Impressions Foot X-Ray 08/27/23 11:13 IMPRESSION: 1. Subtle radiolucency in the head of the first metatarsal raising the possibility of osteomyelitis. MRI could be utilized for further investigation 2. Postsurgical changes amputation of the first toe. Discharge Plan Discharge Anticipated Discharge Date/Time: 08/31/23 14:09 Patient Disposition: Home, Self-Care Discharge Diagnosis: Osteomyelitis Peripheral arterial disease Referrals: [facility] [Other] - 1 Week ([facility] WILL PROVIDE IV MEDICATION, SUPPLIES AND NURSING FOR IV OVERSIGHT AND IV DRESSING CHANGES.) [facility] [Provider Group] - 1 Week Lian Powell MD [Physician] - 1 Week Eduardo Munguia MD [Physician] - 2 Weeks Karin Balderas FNP [Primary Care Provider] - 1 Week Discharge Medications: New ertapenem 1 gram recon soln 1 g IV Q24H Qty: 39 0RF Santyl 250 unit/gram ointment 1 appl topical DAILY Qty: 30 0RF vancomycin 1.25 gram recon soln 1,250 mg IV Q12H Continued rosuvastatin 5 mg tablet 5 mg PO BEDTIME Hold Instructions: Resume on 10/09/23. acetaminophen [Tylenol] 325 mg Tablet 650 mg PO Q6H PRN (Reason: Pain) aspirin 81 mg Tablet,Delayed Release (Dr/Ec) 81 mg PO DAILY multivitamin Tablet 1 tab PO DAILY metformin 1,000 mg tablet 1,000 mg PO BIDWM Discharge Orders: Discharge Order (Routine); Ordered 09/02/23 Ordered By: Kathy Garg Diet: Diabetic diet Activity on Discharge: As tolerated Stand Alone Forms: Patient Portal Discharge page Print Language: Angolan Care Plan Goals: cure of infection Health Concerns: Osteomyelitis Peripheral arterial disease Plan of Treatment: Vancomycin 1250 mg IV every 12 hours via PICC line until 10/08/23 Ertapenem 1 g IV daily via PICC line until 10/08/23 Remove PICC line after 10/08/23 Weekly labs starting 09/07/23, until 10/08/23: CBCd, SCr, vancomycin trough Follow up with Dr Renee Powell, [facility] Infect[facility] Disease, in 1 week Follow up with Dr Eduardo Munguia, [facility] V[facility] Surgery, in 2 weeks Daily wound care: Cleanse with normal saline, pat dry. ?Apply barrier wipe to the immediate iraj wound, apply thick layer of Santyl to entire wound bed, cover with NS moist gauze, cover with gauze, ABD pad and Gauze Wrap. Change Daily. Follow up with [facility] in 1 week Consider outpatient neurology evaluation for chronic resting tremor Please follow up with your primary care doctor within 1 week. Return to the hospital if you experience recurrent or worsening symptoms. Assessment: See Discharge Summary.
[2023-08-31 15:33] VITALS: BP 113/70; PULSE 99; RESP 20; TEMP 36.3; O2SAT 96
--- NOTE | 2023-08-31 16:16 | HO.PM.IMPN ---
Subjective Subjective Date of Service: 08/31/23 Interval History: This history was taken in Setswana from the patient. no fever pain controlled was planning to d/c home today on IV ertapanem + daptomycin but the daptomycin is not covered by his insurance so we have to get him back to steady-state on vancomycin Review of Systems Review of Systems: Yes all other systems are reviewed and are negative Physical Exam Vital Signs: Vital Signs: Last Vital Signs Temp 97.3 F 08/31/23 15:33 Pulse 99 08/31/23 15:33 Resp 20 08/31/23 15:33 BP 113/70 08/31/23 15:33 Pulse Ox 96 08/31/23 15:33 O2 Del Method Room Air 08/31/23 15:33 BMI result Body Mass Index 31.9 Gen: in no acute distress HEENT: sclera anicteric, moist mucus membranes Neck: supple Lungs: clear to auscultation bilaterally Heart: regular rate and rhythm, no murmurs Abd: soft, non-tender, non-distended Ext: L 1st toe amputation site + L 2nd toe tip with ulcers Skin: warm/well-perfused Neuro: alert and oriented x3, no focal findings Psych: appropriate affect Objective Data Active Medications Acetaminophen (Acetaminophen 325 Mg Tablet) 650 mg PO Q6H PRN PRN Reason: Pain, Mild (Pain Scale 1-3), fever or headache Atorvastatin Calcium (Atorvastatin Calcium 20 Mg Tablet) 20 mg PO BEDTIME [facility] Last Admin: 08/29/23 21:17 Dose: 20 mg Documented By: SHI Benzonatate (Benzonatate 100 Mg Capsule) 100 mg PO TID PRN PRN Reason: Cough Calcium Carbonate (Calcium Carbonate 750 Mg Tab.Chew) 750 mg PO Q4H PRN PRN Reason: Heartburn Collagenase (Collagenase Clostridium Hist. 30 Gm Tube) 1 appl TOPICAL DAILY [facility]; Protocol Last Admin: 08/31/23 07:59 Dose: 1 appl Documented By: JORGE L Enoxaparin Sodium (Enoxaparin Sodium 40 Mg/0.4 Ml Syringe) 40 mg SUBCUT Q24H [facility] Last Admin: 08/30/23 17:46 Dose: 40 mg Documented By: MARINA Glucose (Glucose Gel 15 Gm Gel..Gram.) 15 gm PO Q15M PRN; Protocol PRN Reason: per Hypoglycemia Standing Ord. Dextrose (D10) 250 mls @ 750 mls/hr IV Q15M PRN; Protocol PRN Reason: per Hypoglycemia Standing Ord. Insulin Human Lispro (Insulin Lispro 100 Unit/Ml 3 Ml Vial) 0 unit SUBCUT QIDACHS [facility]; Protocol Last Admin: 08/31/23 12:14 Dose: 2 unit Documented By: JORGE L Magnesium Hydroxide (Milk Of Magnesia 30 Ml Oral.Susp) 30 ml PO DAILY PRN PRN Reason: Constipation Melatonin (Melatonin 3 Mg Tablet) 6 mg PO BEDTIME PRN PRN Reason: Insomnia Multivitamins/Vitamin C (Multivitamin Tablet) 1 tab PO DAILY [facility] Last Admin: 08/31/23 07:57 Dose: 1 tab Documented By: JORGE L Ondansetron HCl (Ondansetron Hcl 4 Mg/2 Ml Vial) 4 mg IVPUSH Q8H PRN PRN Reason: Nausea and Vomiting Pharmacy Consult (Consult Rx Vancomycin Dosing) 1 each MISCELLANE DAILY PRN PRN Reason: Consult order Sodium Chloride (0.9 % Sodium Chloride Flush 3 Ml Syringe) 3 ml IVFLUSH QSHIFT [facility] Last Admin: 08/31/23 07:57 Dose: 3 ml Documented By: JORGE L Sodium Chloride (0.9 % Sodium Chloride Flush 10 Ml Syringe) 5 ml IVFLUSH TID [facility] Last Admin: 08/31/23 07:57 Dose: 5 ml Documented By: JORGE L Labs 08/27/23 10:52 08/30/23 05:39 Labs: Laboratory Results - last 24 hr 08/30/23 08/30/23 08/31/23 16:15 19:45 07:31 POC Glucose 184 H 206 H 154 H 08/31/23 11:16 POC Glucose 185 H Assessment and Plan (1) Elevated lactic acid level: Status: Acute (2) Cellulitis of left foot: Status: Acute (3) Uncontrolled type 2 diabetes mellitus with hyperglycemia: Status: Acute Plan d5 63yo M with HLD, DM2, hx osteomyelitis s/p L great toe amputation 07/21/23, chronic resting tremor, anxiety presenting with infection of amputation site purulent cellulitis/osteomyelitis 1st metatarsal DM foot ulcer at amputation site - Vasc Surg consulted- recommend continued ABX treatment, will try to salvage amputation site, outpt f/u - Wound Care consulted- recommend Santyl daily - ID consulted- recommend dapto + ertapenem x 6wk; PICC placed 08/29; BCx negative from 08/26; end date 10/07 - unfortunately, his insurance doesn't cover dapto so will have to transition back to vanco and get to steady-state lactic acidosis - due to MTF, not sepsis DM2, A1c 9.4 - hold MTF, continue corrr-dose lispro resting tremor - outpt Neurology eval VTE ppx - LMWH dispo - home with infusion services In my clinical judgment, the patient requires continued inpatient hospitalization for the following reasons: IV ABX Total time managing care of this patient today: 45 minutes. Quality Stroke Does the patient have a stroke diagnosis?: No VTE Prior VTE?: No VTE Risk Level:: Medical - moderate - high VTE Device Contraindication: Treatment Not Indicated VTE Drug Contraindication: N/A - Med Ordered
[2023-08-31 16:45] LABS: Glucose, Whole Blood 260 mg/dL (60-115)
[2023-08-31] MEDS: Enoxaparin Sodium 40 MG/0.4 ML SYRINGE SUBCUT (16:57)
[2023-08-31] MEDS: vancomycin/NS 2,000 MG/500 ML PLAST..BAG 250 MG IV (17:51)
[2023-08-31 19:41] VITALS: BP 110/73; PULSE 99; RESP 16; TEMP 36.1; O2SAT 97
[2023-08-31 20:41] LABS: Glucose, Whole Blood 257 mg/dL (60-115)
[2023-08-31] MEDS: Atorvastatin Calcium 20 MG TABLET PO (21:42)
[2023-09-01 03:00] VITALS: BP 146/71; PULSE 75; RESP 16; TEMP 36.4; O2SAT 97
[2023-09-01 07:42] VITALS: BP 152/74; PULSE 75; RESP 18; TEMP 36.1; O2SAT 94
[2023-09-01 07:43] LABS: Glucose, Whole Blood 185 mg/dL (60-115)
[2023-09-01] MEDS: Insulin Lispro 100 UNIT/ML 3 ML VIAL SUBCUT ×4 (08:20→19:43)
[2023-09-01] MEDS: 0.9 % Sodium Chloride Flush 3 ML SYRINGE IVFLUSH (08:20)
[2023-09-01] MEDS: 0.9 % Sodium Chloride Flush 10 ML SYRINGE 5 ML IVFLUSH ×3 (08:20→19:35)
[2023-09-01] MEDS: vancomycin HCL 1,250 MG in 0.9 % Sodium Chloride 250 ML 166.67 MG IV ×2 (08:20→19:34)
[2023-09-01] MEDS: Multivitamin TABLET 1 TAB PO (08:20)
--- NOTE | 2023-09-01 09:26 | P.PNIM_ITS ---
Subjective Subjective Date of Service: 09/01/23 Interval History: This history was taken in Irish from the patient. No pain No fever Review of Systems Review of Systems: Yes all other systems are reviewed and are negative Physical Exam 2 Vital Signs: Vital Signs: Last Vital Signs Temp 97.0 F 09/01/23 07:42 Pulse 75 09/01/23 07:42 Resp 18 09/01/23 07:42 BP 152/74 H 09/01/23 07:42 Pulse Ox 94 09/01/23 07:42 O2 Del Method Room Air 09/01/23 07:42 BMI result Body Mass Index 31.9 Gen: in no acute distress HEENT: sclera anicteric, moist mucus membranes Neck: supple Lungs: clear to auscultation bilaterally Heart: regular rate and rhythm, no murmurs Abd: soft, non-tender, non-distended Ext: L 1st toe amputation site + L 2nd toe tip with ulcers, RUE PICC Skin: warm/well-perfused Neuro: alert and oriented x3, no focal findings Psych: appropriate affect Objective Data Active Medications Acetaminophen (Acetaminophen 325 Mg Tablet) 650 mg PO Q6H PRN PRN Reason: Pain, Mild (Pain Scale 1-3), fever or headache Atorvastatin Calcium (Atorvastatin Calcium 20 Mg Tablet) 20 mg PO BEDTIME [facility] Last Admin: 08/31/23 21:42 Dose: 20 mg Documented By: CASTILM Benzonatate (Benzonatate 100 Mg Capsule) 100 mg PO TID PRN PRN Reason: Cough Calcium Carbonate (Calcium Carbonate 750 Mg Tab.Chew) 750 mg PO Q4H PRN PRN Reason: Heartburn Collagenase (Collagenase Clostridium Hist. 30 Gm Tube) 1 appl TOPICAL DAILY [facility]; Protocol Last Admin: 08/31/23 07:59 Dose: 1 appl Documented By: JORGE L Enoxaparin Sodium (Enoxaparin Sodium 40 Mg/0.4 Ml Syringe) 40 mg SUBCUT Q24H [facility] Last Admin: 08/31/23 16:57 Dose: 40 mg Documented By: JORGE L Glucose (Glucose Gel 15 Gm Gel..Gram.) 15 gm PO Q15M PRN; Protocol PRN Reason: per Hypoglycemia Standing Ord. Dextrose (D10) 250 mls @ 750 mls/hr IV Q15M PRN; Protocol PRN Reason: per Hypoglycemia Standing Ord. Meropenem 1 gm/ Sodium (Chloride) 100 mls @ 200 mls/hr IV Q8H [facility] Last Infusion: 09/01/23 01:19 Dose: Infused Documented By: PHILOMENA Vancomycin HCl 1,250 mg/ (Sodium Chloride) 250 mls @ 166.667 mls/hr IV Q12H [facility] Last Admin: 09/01/23 08:20 Dose: 166.67 mls/hr Documented By: EM Insulin Human Lispro (Insulin Lispro 100 Unit/Ml 3 Ml Vial) 0 unit SUBCUT QIDACHS [facility]; Protocol Last Admin: 09/01/23 08:20 Dose: 2 unit Documented By: EM Magnesium Hydroxide (Milk Of Magnesia 30 Ml Oral.Susp) 30 ml PO DAILY PRN PRN Reason: Constipation Melatonin (Melatonin 3 Mg Tablet) 6 mg PO BEDTIME PRN PRN Reason: Insomnia Multivitamins/Vitamin C (Multivitamin Tablet) 1 tab PO DAILY [facility] Last Admin: 09/01/23 08:20 Dose: 1 tab Documented By: EM Ondansetron HCl (Ondansetron Hcl 4 Mg/2 Ml Vial) 4 mg IVPUSH Q8H PRN PRN Reason: Nausea and Vomiting Pharmacy Consult (Consult Rx Vancomycin Dosing) 1 each MISCELLANE DAILY PRN PRN Reason: Consult order Sodium Chloride (0.9 % Sodium Chloride Flush 3 Ml Syringe) 3 ml IVFLUSH QSHIFT [facility] Last Admin: 09/01/23 08:20 Dose: 3 ml Documented By: EM Sodium Chloride (0.9 % Sodium Chloride Flush 10 Ml Syringe) 5 ml IVFLUSH TID [facility] Last Admin: 09/01/23 08:20 Dose: 5 ml Documented By: EM Labs 08/27/23 10:52 08/30/23 05:39 Labs: Laboratory Results - last 24 hr 08/31/23 08/31/23 08/31/23 11:16 16:41 20:33 POC Glucose 185 H 260 H 257 H 09/01/23 07:39 POC Glucose 185 H Assessment and Plan (1) Elevated lactic acid level: Status: Acute (2) Cellulitis of left foot: Status: Acute (3) Uncontrolled type 2 diabetes mellitus with hyperglycemia: Status: Acute Plan d6 63yo M with HLD, DM2, hx osteomyelitis s/p L great toe amputation 07/21/23, chronic resting tremor, anxiety presenting with infection of amputation site purulent cellulitis/osteomyelitis 1st metatarsal DM foot ulcer at amputation site - Vasc Surg consulted- recommend continued ABX treatment to try to salvage amputation site, outpt follow-up - Wound Care consulted- recommend Santyl daily - ID consulted- recommend dapto + ertapenem x 6wk; PICC placed 08/29; BCx negative from 08/26; end date 10/07; outpt follow-up - unfortunately, his insurance doesn't cover dapto so we have transitioned back to vanco and get to steady-state; Pharmacy consulted + following for PK lactic acidosis - due to MTF, not sepsis DM2, A1c 9.4 - hold MTF, continue lawrence-dose lispro resting tremor - outpt Neurology eval VTE ppx - LMWH dispo - home with infusion services In my clinical judgment, the patient requires continued inpatient hospitalization for the following reasons: IV ABX Total time managing care of this patient today: 35 minutes. Quality Stroke Does the patient have a stroke diagnosis?: No VTE Prior VTE?: No VTE Risk Level:: Medical - moderate - high VTE Device Contraindication: Treatment Not Indicated VTE Drug Contraindication: N/A - Med Ordered
[2023-09-01] MEDS: Collagenase Clostridium Hist. 30 GM TUBE 1 APPL TOPICAL (09:49)
[2023-09-01 11:07] LABS: Creatinine Clr Calc Pharmacy 93.5; Estimated Glomerular Filt Rate > 60
[2023-09-01 11:20] LABS: Glucose, Whole Blood 185 mg/dL (60-115)
[2023-09-01 15:18] VITALS: BP 145/73; PULSE 73; RESP 16; TEMP 36.2; O2SAT 96
[2023-09-01 16:15] LABS: Glucose, Whole Blood 241 mg/dL (60-115)
[2023-09-01] MEDS: Enoxaparin Sodium 40 MG/0.4 ML SYRINGE SUBCUT (16:59)
[2023-09-01 18:36] LABS: Vancomycin Random 15.8 mcg/mL (15-20)
--- NOTE | 2023-09-01 18:40 | HE.PHANOTE ---
vanco dosing Level 15.8 today. Renal function stable. Will continue current regimen. Next level in 24 hours 09/02/23 @ 1800. Laura ClevelandD
[2023-09-01] MEDS: Atorvastatin Calcium 20 MG TABLET PO (19:43)
[2023-09-01 20:00] VITALS: BP 158/77; PULSE 74; RESP 16; TEMP 36.5; O2SAT 96
[2023-09-01 20:37] LABS: Glucose, Whole Blood 183 mg/dL (60-115)
--- NOTE | 2023-09-02 02:54 | PC.NURSE ---
Pt is AOx3, Latvian speaking, able to make his needs known. He has had no c/o pain. He is x1 assist w/walker, uses urinal. Pt is awaiting discharge. Call ariza is within reach. Bed alarm is on.
[2023-09-02 04:00] VITALS: BP 163/83; PULSE 76; RESP 16; TEMP 36.2; O2SAT 96
[2023-09-02 07:12] VITALS: BP 143/77; PULSE 80; RESP 16; TEMP 36.4; O2SAT 96
[2023-09-02 07:20] LABS: Glucose, Whole Blood 161 mg/dL (60-115)
[2023-09-02] MEDS: Multivitamin TABLET 1 TAB PO (08:00)
[2023-09-02] MEDS: Insulin Lispro 100 UNIT/ML 3 ML VIAL SUBCUT ×2 (08:00→11:43)
[2023-09-02] MEDS: vancomycin HCL 1,250 MG in 0.9 % Sodium Chloride 250 ML 166.66 MG IV (08:01)
[2023-09-02] MEDS: 0.9 % Sodium Chloride Flush 10 ML SYRINGE 5 ML IVFLUSH (08:01)
[2023-09-02 08:50] LABS: Estimated Glomerular Filt Rate > 60
[2023-09-02] MEDS: Collagenase Clostridium Hist. 30 GM TUBE 1 APPL TOPICAL (09:42)
[2023-09-02 11:11] LABS: Glucose, Whole Blood 214 mg/dL (60-115)
--- NOTE | 2023-09-02 13:39 | MHC.CM.PN ---
DP:PT HAS BEEN MEDICALLY CLEARED FOR DC HOME WITH [facility] FOR IV SUPPLIES,MEDICATION AND NURSING FOR IV DRESSING CHANGES. [facility] LIAISON IN TO DO ANOTHER TEACH, SON ABLE TO SUCCESSFULLY LEARN. RN AWARE. SON WILL TRANSPORT HOME
--- NOTE | 2023-09-26 17:50 | P.CDIM_ITS ---
PROVIDER RESPONSE TEXT: To clarify, the appropriate diagnosis supported by the clinical indicators: Acute osteomyelitis QUERY TEXT: PHYSICIAN'S DOCUMENTATION REQUEST Date of Query: 09/06/2023 11:14 AM EDT Patient Name: Matteo Greenberg Admit Date: 08/27/2023 Dear Kathy Garg, RETROSPECTIVE QUERY A review of the medical record indicates additional documentation may be needed. Please review below and update the documentation accordingly. Clinical Indicators: ID 08/29/23 OM likely per first metatarsal on Xray. IV Ertapenem and Vancomycin or Daptomycin for six weeks. Osteomyelitis of left great toe. Vascular surgery consulted-recommends continued ABX treatment. Wound care consult-recommend Santyl daily. Based on the above, please clarify in the Progress Notes further specificity regarding the acuity of the noted Osteomyelitis. Acute osteomyelitis Subacute osteomyelitis Chronic osteomyelitis Other (explain) Clinically unable to determine (explain) Thank you, Rola Toscano, CCS, CDIS Use of terms such as suspected, likely, concern for, or probable (associated with a specific diagnosi s that is being evaluated, monitored, or treated as if it exists) are acceptable and can be coded in the inpatient se tting, when documented at the time of discharge. Please use your independent medical judgment in providing your response. THIS QUERY IS PART OF THE PERMANENT MEDICAL RECORD
== END 2023-09-02 14:23 | disposition home or self-care (01) | DRG 349 ==
LOC: HO.ED 13:28 → HO.EDOVER 15:38 → HO.S3 19:27
PROVIDERS: Hospitalist; Nurse Practitioner Family; Admitting Provider Student in an Organized Health Care Education/Training Program; Emergency Provider Emergency Medicine; PCP Registered Nurse; Visit Provider Family Medicine
DX: T87.44 Infection of amputation stump, left lower extremity (principal); E87.0 Hyperosmolality and hypernatremia; M86.172 Other acute osteomyelitis, left ankle and foot; E11.69 Type 2 diabetes mellitus with other specified complication; L03.116 Cellulitis of left lower limb; E78.5 Hyperlipidemia, unspecified; E11.65 Type 2 diabetes mellitus with hyperglycemia; G20.A1 Parkinson's disease without dyskinesia, without mention of fluctuations; Z79.82 Long term (current) use of aspirin; Z79.84 Long term (current) use of oral hypoglycemic drugs; Z79.899 Other long term (current) drug therapy
CPT/HCPCS: 36415; 36573; 73630; 80048; 80076; 80202; 82550; 82565; 82947; 83036; 83605; 85025; 85652; 86140; 87040; 99285; C1751; J0878; J1335; J1650; J2185; J2543; J3370; J3371

== ENCOUNTER → 2023-08-27 15:28 | Outpatient (BNV) | payer OTHER, SELFPAY | PROVIDERS: Admitting Provider Student in an Organized Health Care Education/Training Program; Emergency Provider Emergency Medicine; PCP Registered Nurse; Visit Provider Surgery Vascular Surgery | DX: I73.9 Peripheral vascular disease, unspecified (principal) | CPT/HCPCS: 99222; 99232 ==

== ENCOUNTER → 2023-08-27 15:28 | Outpatient (BNV) | payer SELFPAY | PROVIDERS: Admitting Provider Student in an Organized Health Care Education/Training Program; Emergency Provider Emergency Medicine; PCP Registered Nurse; Visit Provider Internal Medicine | DX: R79.89 Other specified abnormal findings of blood chemistry (principal) | CPT/HCPCS: 99222; 99499 ==

== ENCOUNTER → 2023-08-27 15:28 | Outpatient (BNV) | payer SELFPAY | PROVIDERS: Admitting Provider Student in an Organized Health Care Education/Training Program; Emergency Provider Emergency Medicine; PCP Registered Nurse; Visit Provider Hospitalist | DX: R79.89 Other specified abnormal findings of blood chemistry (principal); L03.116 Cellulitis of left lower limb; E11.65 Type 2 diabetes mellitus with hyperglycemia | CPT/HCPCS: 99223; 99232; 99239 ==

== ENCOUNTER 2023-09-14 12:45 | Outpatient (AMB) | payer OTHER, SELFPAY ==
--- NOTE | 2023-09-14 12:54 | A.OFFVIS_ITS ---
Intake Visit Reasons: [facility] ED follow up- d/c 09/02/23 Intake Note: Patient presents for ED follow up. Patient has a visiting nurse that sees him at home and changes his dressing every other day. Pt still taking IV Abx, no woundCare center appts yet. Left Great toe amp 07/21/23, has 2nd toe wound as well Floodplain Manager Required: No Allergies No Known Allergies Allergy (Verified 09/14/23 13:06) HPI HPI [facility] ED follow up- d/c 09/02/23: Details: Very pleasant 63-year-old gentleman presents for follow-up regarding toe amputation he had undergone left great toe amputation of 07/21/2023. Had been having issues with the 2nd toe. He has a PICC line at the current time. He is currently receiving ertapenem and vancomycin. Reports he is doing relatively well otherwise. He does have visiting nurses for local wound care. He now presents for routine follow-up [facility] Medical History Amputation of left great toe Osteomyelitis Anxiety HTN (hypertension) Type 2 diabetes mellitus Social History Household Members: None Housing: House Do you presently have visiting nurse or other home services: No Alcohol intake: never Patient Tobacco Use Status: Never used Tobacco service: No Review of Systems Const All systems reviewed & are unremarkable except as noted in HPI and below Reports no additional complaints ENT Reports Normal hearing present Card Denies chest pain, Denies chest pain at rest, Denies chest pain with activity and Denies pedal edema Resp Denies cough GI Denies abdominal pain Musc Denies abnormal gait, Denies muscle cramps and Denies radiating pain into limb Skin/Breast Denies skin ulcer and Denies wounds Neuro Reports Normal hearing present and Denies abnormal gait Psych Reports no additional complaints Physical Exam Const General: cooperative, healthy appearing and comfortable Orientation/consciousness: oriented to person, oriented to place and oriented to time HEENT Head: Yes normal to inspection Neck Neck: Yes normal visual inspection Carotids: no bruits Chest Chest palpation & inspection: normal inspection of the chest Resp Effort & Inspection: normal respiratory effort and able to speak in complete sentences Auscultation: clear to auscultation bilaterally, no crackles, no rales, no rhonchi and no wheezes Cardio Rate: regular rate Rhythm: regular rhythm Heart sounds: S1 normal heart sound present and S2 normal heart sound present Bruits: no carotid bruits Peripheral pulses: Peripheral pulses 2+ throughout GI Inspection: Yes normal to inspection Skin Other: Left great toe amputation site opening measures 2 x 2 x 0.9 cm Left 2nd toe at the distal tip has a 0.5 cm opening in diameter Wounds: no wounds Hair: normal Neuro General: oriented to person, oriented to place and oriented to time Cranial nerves: Yes CN's II-XII intact bilaterally and Yes Normal hearing present Cognition (Neuro): normal cognition Motor exam (neuro): 5/5 motor strength present throughout Extrem Other: venous exam: No significant superficial varicosities or spider telangiectasias, minimal edema General: No clubbing, No cyanosis and No edema Psych Appearance: grossly normal Mental Status: mental status grossly normal Speech and movement: Normal speech and movement present Assessment & Plan Assessment & Plan (1) PAD (peripheral artery disease): Code(s): I73.9 - Peripheral vascular disease, unspecified Category: Medical Plan: In short patient has nonhealing left foot ulcer. At the current time would continue with local wound care. He will require alginate dressings. Continue with IV antibiotics. He will follow up with us in approximately 3 weeks time to ensure it is progressing well. Thank you for allowing us to assist in his care. Coding Level of Care Code Est Pt Level 3 (25501) Diagnoses PAD (peripheral artery disease) I73.9
== END 2023-09-14 13:27 | disposition home or self-care (01) ==
PROVIDERS: PCP Registered Nurse; Visit Provider Surgery Vascular Surgery
DX: I73.9 Peripheral vascular disease, unspecified (principal)
CPT/HCPCS: 99213

== ENCOUNTER → 2023-09-14 12:45 | Outpatient (BNVA) | payer MEDICAID, SELFPAY | PROVIDERS: PCP Registered Nurse; Visit Provider Surgery Vascular Surgery | DX: I73.9 Peripheral vascular disease, unspecified (principal); Z89.412 Acquired absence of left great toe | CPT/HCPCS: 99212 ==

== ENCOUNTER 2023-09-23 15:27 | Emergency (ER) | payer OTHER, MEDICAID, SELFPAY ==
--- NOTE | ~2023-09-23 | XR_ITS ---
EXAMINATION: XR CHEST CLINICAL INFORMATION: Nonfunctioning right PICC. COMPARISON: None available. TECHNIQUE: Frontal view of the chest was obtained. FINDINGS: No significant abnormality is noted involving the heart, lungs, mediastinum, bony thorax or soft tissues. There is mild elevation of the right hemidiaphragm. A right upper extremity PICC is seen, with tip positioned in the vicinity of the superior vena cava. The catheter is continuous, without fracture identified. XR/XR chest 1V IMPRESSION: Unremarkable examination. The right upper extremity PICC tip is positioned in the vicinity of the superior vena cava.
[2023-09-23 15:34] VITALS: BP 155/79; PULSE 87; RESP 18; TEMP 36.9; O2SAT 98; BMI 31.5
--- NOTE | 2023-09-23 15:39 | ED.GENADULT ---
HPI - General Adult General Chief complaint: General Medical Stated complaint: PICC line issue Time Seen by Provider: 09/23/23 17:32 History of Present Illness ED Provider: Amos Abraham MD HPI narrative: Visiting nurse reports inability to flush PICC line. Review of recent discharge summary August 30 shows the plan of care was: Plan of Treatment: Vancomycin 1250 mg IV every 12 hours via PICC line until 10/08/23 Ertapenem 1 g IV daily via PICC line until 10/08/23 Remove PICC line after 10/08/23 Related Data Home Medications ?Medication ?Instructions ?Recorded ?Confirmed metformin 1,000 mg tablet 1,000 mg PO BIDWM 07/11/23 08/27/23 multivitamin 1 tab PO DAILY 07/11/23 08/27/23 acetaminophen 325 mg tablet 650 mg PO Q6H PRN Pain 08/27/23 08/27/23 (Tylenol) aspirin 81 mg tablet,delayed 81 mg PO DAILY 08/27/23 08/27/23 release rosuvastatin 5 mg tablet 5 mg PO BEDTIME cholesterol 08/27/23 08/27/23 Previous Rx's ?Medication ?Instructions ?Recorded collagenase clostridium histo. 250 1 appl topical DAILY #30 grams 08/31/23 unit/gram topical ointment (Santyl) ertapenem 1 gram solution for 1 g IV Q24H #39 ea 08/31/23 injection vancomycin 1.25 gram intravenous 1,250 mg IV Q12H 09/02/23 solution Allergies Allergy/AdvReac Type Severity Reaction Status Date / Time No Known Allergies Allergy Verified 09/23/23 15:42 PMFSH Past Medical History Medical History Amputation of left great toe Osteomyelitis Anxiety HTN (hypertension) Type 2 diabetes mellitus Social History Social History Household Members: None Housing: House Do you presently have visiting nurse or other home services: No Alcohol intake: never Patient Tobacco Use Status: Never used Tobacco Advance Directives: Yes Advance Directives on File: Yes Advance Directives Date on File: 09/05/23 Do you have a plan to hurt others: No Plan service: No Physical Exam ED Vital Signs: Vital Signs - 24 hr 09/23/23 15:34 09/23/23 18:28 09/23/23 20:55 Temperature 98.5 F 97.1 F 97.8 F Pulse Rate 87 80 71 Respiratory Rate 18 16 16 Blood Pressure 155/79 H 155/75 H 161/80 H Pulse Oximetry 98 97 97 Oxygen Delivery Method Room Air Room Air Room Air BMI result Body Mass Index 31.5 Course Course Course Narrative: This is a Rapid Medical Examination (RME) performed by Antonio Cartagena PA-C in triage. Full HPI, ROS, assessment and treatment plan per primary provider in the Main ED. 63 yo male hx of DM, osetomyelitis, PAD, s/p left great toe amputation on 07/21/23. he is currently receiving ertapenem and vancomycin through PICC line for left 2nd toe wound. Visiting nurse seems him daily at home to change dressings and administer IV antibiotics. Patient states that visiting nurse was unable to push his antibiotics today stating that the line was clogged. Advised to come to ED for evaluation. Follows with Dr. Munguia. Plan: eval by primary provider Medications Administered Discontinued Medications Generic Name Dose Route Start Last Admin Trade Name Freq PRN Reason Stop Dose Admin Alteplase, Recombinant 2 mg 09/23/23 17:33 09/23/23 19:19 Alteplase Cath Clear 2 Mg/2 Ml Vial INTRACATH 09/23/23 17:34 2 mg ONCE ONE Administration Vancomycin HCl 1,250 mg/ 250 mls @ 166.667 mls/hr 09/23/23 17:42 09/23/23 19:22 Sodium Chloride IV 09/23/23 19:11 166.67 mls/hr ONCE ONE Administration Ertapenem 1 gm/ Sodium 50 mls @ 100 mls/hr 09/23/23 17:42 09/23/23 18:50 Chloride IV 09/23/23 18:11 Infused ONCE ONE Infusion Discharge Plan Discharge Clinical Impression: Diabetic osteomyelitis Patient Disposition: Home, Self-Care Instructions: Osteomyelitis (ED) Additional Instructions: DIAGN?STICOS AL RIK: Infecci?n del pie sin cambios. Oclusi?n resuelta de la v?a PICC del brazo derecho ANTECEDENTES DE LA PRESENTACI?N: ?Usted vino porque la enfermera visitante no pudo enjuagar ni administrar antibi?ticos a ravi?s de galarza v?a PICC del lado derecho. CURSO, PRUEBAS Y TRATAMIENTOS EN EL DEPARTAMENTO DE EMERGENCIAS: Mientras estaba en el DE avniy, probamos un medicamento a ravi?s de la v?a PICC del lado derecho para disolver los co?gulos. Gananda parece sarahi funcionado y galarza enfermera puede venir ma?mannie nydia se program? previamente. Recibi? las dosis de antibi?ticos que se perdi? y no necesita m?s antibi?ticos hoy. La dosificaci?n de los antibi?ticos ma?mannie puede continuar seg?n lo prescrito sin cambios MEDICAMENTOS PARA EL RIK: [No hemos realizado cambios en galarza r?gimen de medicaci?n habitual] SEGUIMIENTO: Llame a galarza m?dico de cabecera o general lo antes posible para hablar sobre andrzej s?ntomas, galarza visita al servicio de urgencias y para analizar los planes de seguimiento INSTRUCCIONES Y PRECAUCIONES PARA EL REGRESO: Si alg?n s?ntoma cambia, dayanara llame a galarza m?dico de cabecera; si es fuera del horario de atenci?n, el consultorio de galarza m?dico de cabecera debe tener un proveedor de brigid con el que pueda hablar. Si los s?ntomas son graves o muy preocupantes para usted, llame al 911 o regrese al servicio de urgencias. Amos Abraham MD M?dico de urgencias [facility] ENGLIGH: DISCHARGE DIAGNOSES: Unchanged infection of the foot. Resolved occlusion of the PICC line of the right arm HISTORY OF PRESENTATION: ?You came in because the visiting nurse could not flush or administer antibiotics through your right-sided PICC line. EMERGENCY DEPARTMENT COURSE,TESTS, TREATMENTS: While in the ED today we tried a medication through the right-sided PICC line to break up clots. This appears to have worked and your nurse can come tomorrow as previously scheduled. You did receive the antibiotic doses that you missed and you do not need anymore antibiotics today. The dosing of the antibiotics tomorrow can continue as prescribed with no changes DISCHARGE MEDICATIONS: ?[We have made no changes to your regular medication regimen] FOLLOW-UP: ?Call your primary or general physician soon as possible to discuss your symptoms, your ED visit and to discuss follow up plans INSTRUCTIONS ?& RETURN PRECAUTIONS: If any symptoms change first call your primary physician, if it is after-hours your primary doctors office should have a provider peoplesoft functional analyst you can speak with. If the symptoms are severe or very concerning to you then call 911 or return to the ED. Amos Abraham MD Emergency Physician [facility] Prescriptions: No Action rosuvastatin 5 mg tablet 5 mg PO BEDTIME Hold Instructions: Resume on 10/09/23. acetaminophen [Tylenol] 325 mg Tablet 650 mg PO Q6H PRN (Reason: Pain) aspirin 81 mg Tablet,Delayed Release (Dr/Ec) 81 mg PO DAILY ertapenem 1 gram recon soln 1 g IV Q24H Qty: 39 0RF Santyl 250 unit/gram ointment 1 appl topical DAILY Qty: 30 0RF vancomycin 1.25 gram recon soln 1,250 mg IV Q12H multivitamin Tablet 1 tab PO DAILY metformin 1,000 mg tablet 1,000 mg PO BIDWM Print Language: Pashto
[2023-09-23] MEDS: Ertapenem Sodium 1 GM in 0.9 % Sodium Chloride 50 ML IV (18:20)
[2023-09-23 18:28] VITALS: BP 155/75; PULSE 80; RESP 16; TEMP 36.2; O2SAT 97
[2023-09-23] MEDS: Alteplase Cath Clear 2 MG/2 ML VIAL INTRACATH (19:19)
[2023-09-23] MEDS: vancomycin HCL 1,250 MG in 0.9 % Sodium Chloride 250 ML 166.67 MG IV (19:22)
[2023-09-23 20:55] VITALS: BP 161/80; PULSE 71; RESP 16; TEMP 36.6; O2SAT 97
[2023-09-23 21:16] VITALS: BP 161/80; PULSE 71; RESP 16; TEMP 36.6; O2SAT 97
== END 2023-09-23 21:17 | disposition home or self-care (01) ==
PROVIDERS: Emergency Provider Emergency Medicine Emergency Medical Services; PCP Registered Nurse
DX: E11.69 Type 2 diabetes mellitus with other specified complication (principal); M86.9 Osteomyelitis, unspecified; T82.594A Other mechanical complication of infusion catheter, initial encounter; Y82.8 Other medical devices associated with adverse incidents; Y92.009 Unspecified place in unspecified non-institutional (private) residence as the place of occurrence of the external cause; Z89.412 Acquired absence of left great toe; I10 Essential (primary) hypertension; Z79.02 Long term (current) use of antithrombotics/antiplatelets; Z79.84 Long term (current) use of oral hypoglycemic drugs; Z79.82 Long term (current) use of aspirin; Z79.899 Other long term (current) drug therapy; Z79.2 Long term (current) use of antibiotics
CPT/HCPCS: 71045; 96365; 96367; 96375; 99283; 99284; J1335; J2997; J3371

== ENCOUNTER 2023-10-01 13:06 | Emergency (ER) | payer MEDICAID, OTHER, SELFPAY ==
[2023-10-01 13:08] VITALS: BP 152/68; PULSE 88; RESP 18; TEMP 37.1; O2SAT 97; BMI 31.5
--- NOTE | 2023-10-01 13:10 | ED_ITS ---
HPI - General Adult General Chief complaint: Recheck/Abnormal Lab/Rx Stated complaint: abnormal labs Source: patient, family and educational sign language interpreter (patient refused [facility] [place] conference interpreter and requested his family with him interpret) Mode of arrival: wheelchair Limitations: language barrier (patient refused [facility] [place] conference interpreter and requested his family with him interpret) History of Present Illness ED Provider: Frida Ramírez PA-C HPI narrative: Patient is a 63 year old assigned male at with a history of PAD, DM, and osteomyelitis presenting to the emergency department today for possible abnormal labs. Patient's family states that they were asked by other family members to bring the patient to the ER for abnormal lab work. Family states that they aren't sure what labs were abnormal or where it the lab work was done. Patient denies any dizziness, lightheadedness, abdominal pain, nausea, vomiting, fever, chills, blurry vision, double vision, loss of vision, chest pain, difficulty breathing, shortness of breath, back pain, night sweats, pain with urination, increased urinary frequency, increased urinary urgency, blood in [his/her/their] urine or stool, syncope or a near syncopal episode, recent trauma or falls, bowel incontinence, bladder incontinence, or any other complaints at this time. Relieving factors: none Exacerbating factors: none Associated symptoms: denies other symptoms Treatments prior to arrival: none Related Data Home Medications ?Medication ?Instructions ?Recorded ?Confirmed metformin 1,000 mg tablet 1,000 mg PO BIDWM 07/11/23 08/27/23 multivitamin 1 tab PO DAILY 07/11/23 08/27/23 acetaminophen 325 mg tablet 650 mg PO Q6H PRN Pain 08/27/23 08/27/23 (Tylenol) aspirin 81 mg tablet,delayed 81 mg PO DAILY 08/27/23 08/27/23 release rosuvastatin 5 mg tablet 5 mg PO BEDTIME cholesterol 08/27/23 08/27/23 Previous Rx's ?Medication ?Instructions ?Recorded collagenase clostridium histo. 250 1 appl topical DAILY #30 grams 08/31/23 unit/gram topical ointment (Santyl) ertapenem 1 gram solution for 1 g IV Q24H #39 ea 08/31/23 injection vancomycin 1.25 gram intravenous 1,250 mg IV Q12H 09/02/23 solution Allergies Allergy/AdvReac Type Severity Reaction Status Date / Time No Known Allergies Allergy Verified 10/01/23 13:08 Review of Systems Constitutional: Constitutional: Reports no additional constitutional complaints, Denies chills, Denies fever(s) and Denies night sweats Eyes: Eyes: Reports no additional eye complaints, Denies blurry vision, Denies change in vision, Denies diplopia, Denies eye discharge, Denies loss of vision and Denies eye pain ENT: Denies dizziness Cardiovascular: Cardiovascular: Reports no additional cardiovascular complaints, Denies chest pain, Denies lightheadedness, Denies Loss of Consciousness and Denies dyspnea Respiratory: Respiratory: Reports no additional respiratory complaints and Denies dyspnea Gastrointestinal: Gastrointestinal: Reports no additional gastrointestinal complaints, Denies abdominal pain, Denies melena, Denies hematochezia, Denies change in bowel habits and Denies change in stool character Genitourinary: Genitourinary: Reports no additional male genitourinary complaints, Denies hematuria, Denies oliguria, Denies difficulty urinating, Denies dysuria, Denies urinary frequency, Denies urinary hesitancy, Denies urinary incontinence and Denies urinary urgency Musculoskeletal: Musculoskeletal: Reports no additional musculoskeletal complaints, Denies numbness and Denies tingling Neurologic: Denies dizziness, Denies loss of vision, Denies numbness and Denies tingling Psychiatric: Psychiatric: Reports no additional psychiatric complaints Endocrine: Endocrine: Reports no additional endocrine complaints Hematologic/Lymphatic: Hematologic/Lymphatic: Reports no additional hematologic/lymphatic complaints Allergic/Immunologic: Allergic/Immunologic: Reports no additional allergic/immunologic complaints PMFSH Past Medical History Attestation statement: The following information was validated with the patient. (patient's family validated all information) Source: old records reviewed, obtained from family (patient's family provided additional history and confirmed the history provided by the patient.) and nursing notes reviewed Medical History Amputation of left great toe Osteomyelitis Anxiety HTN (hypertension) Type 2 diabetes mellitus Social History Social History Household Members: None Housing: House Do you presently have visiting nurse or other home services: No Alcohol intake: never Patient Tobacco Use Status: Never used Tobacco Advance Directives: No Advance Directives Information Provided: No Advance Directives Date on File: 09/05/23 Do you have a plan to hurt others: No Plan service: No Physical Exam ED Vital Signs: Vital Signs - 24 hr 10/01/23 13:08 Temperature 98.8 F Pulse Rate 88 Respiratory Rate 18 Blood Pressure 152/68 H Pulse Oximetry 97 Oxygen Delivery Method Room Air BMI result Body Mass Index 31.5 Const General: cooperative, no acute distress, alert and awake Nutritional Appearance: well nourished Orientation/consciousness: patient oriented x3 Limitations: no limitations HENMT Head: Yes normal to inspection and Yes atraumatic Ears: hearing grossly normal bilaterally and external ears normal General nose exam: Normal external nose present, no nasal discharge noted and no epistaxis Face and sinus: Yes normal facial exam, No abrasion and No laceration Mouth: Normal oral and palatal mucosa present, no drooling and no muffled voice Eyes General: appearance normal, both eyes and all related structures Periorbital: periorbital findings normal Eyelids: Yes eyelids normal Conjunctivae: conjunctivae normal Pupils: Equal, round and reactive pupils present EOM: EOMs intact bilaterally Neck Neck: Yes normal visual inspection, Yes full ROM and Yes no lymphadenopathy Chest Chest palpation & inspection: normal inspection of the chest Resp Effort & Inspection: normal respiratory effort and able to speak in complete sentences GI Inspection: Yes normal to inspection Neuro General: patient oriented x3 and moves all extremities Cranial nerves: Yes Equal, round and reactive pupils present Cognition (Neuro): normal cognition Extrem Other: amputated left great toe - chronic for patient General: Yes full ROM and Yes capillary refill normal Psych Appearance: grossly normal Mental Status: mental status grossly normal Affect: normal affect Attitude: cooperative Thought process: Normal thought process present Thought content: Normal thought content present Insight: Good insight present (Psych) Course Course Course Narrative: RME performed by Frida Ramírez PA-C. Patient is a 63 year old assigned male at presenting to the emergency department with abnormal labs. Patient's family members at the bed side are not sure why the patient needs to be here other than his labs are bad. Detailed physical exam and review of systems are deferred to the primary counselor. Labs ordered. Patient placed back in the waiting room pending room availability and results. Medical Decision Making Medical Decision Making MDM Narrative: Patient is a 63 year old assigned male at with a history of PAD, DM, and osteomyelitis presenting to the emergency department today for abnormal lab work. Patient's limited physical exam performed in triage was as noted in the physical exam portion of this note. Patient's family received a phone call from the other family member who informed them the patient did not need to come to the ER but rather a doctors appointment on Tuesday, not today. I explained to the patient and his family that we should repeat lab work here if there are concerns about abnormalities but they stated they'd take him home instead. Patient left the department without completing treatment. Patient left the department before myself or any of the other emergency department clinicians could explain to or review with the patient; physical exam findings, test results, need or lack there of for additional testing, need or lack there of for a procedure to be performed, need or lack there of for hospital admission / transfer, need or lack there of for prescription medication, treatment options, or a treatment plan. Differential Diagnosis Differential Diagnoses: The differential diagnosis associated with the presentation includes Abnormal labs Admission/Observation Consideration of admission/observation: Escalation of care including admission/observation considered Patient would have been admitted to the hospital had he completed his work up and it had any findings where hospital admission was appropriate, his clinical presentation warranted hospital admission, had myself or any other emergency department store salesperson had the ability to discuss need or lack there of for h ospital admission, and the patient hadn't left the department without completing treatment. Independent Historian Clinical information obtained from an independent historian. History obtained from or confirmed by: Other (patient's family provided additional history and confirmed the history provided by the patient.) Discharge Plan Discharge Clinical Impression: Abnormal laboratory test result Patient Disposition: Left W/O Completing Treatment Prescriptions: No Action rosuvastatin 5 mg tablet 5 mg PO BEDTIME Hold Instructions: Resume on 10/09/23. acetaminophen [Tylenol] 325 mg Tablet 650 mg PO Q6H PRN (Reason: Pain) aspirin 81 mg Tablet,Delayed Release (Dr/Ec) 81 mg PO DAILY ertapenem 1 gram recon soln 1 g IV Q24H Qty: 39 0RF Santyl 250 unit/gram ointment 1 appl topical DAILY Qty: 30 0RF vancomycin 1.25 gram recon soln 1,250 mg IV Q12H multivitamin Tablet 1 tab PO DAILY metformin 1,000 mg tablet 1,000 mg PO BIDWM Discharge Date/Time: 10/01/23 13:23
== END 2023-10-01 13:23 | disposition left against medical advice (07) ==
PROVIDERS: Emergency Provider Emergency Medicine; PCP Registered Nurse
DX: R79.9 Abnormal finding of blood chemistry, unspecified (principal); Z53.21 Procedure and treatment not carried out due to patient leaving prior to being seen by health care provider
CPT/HCPCS: 99281

== ENCOUNTER 2023-10-03 15:51 | Outpatient (AMB) | payer OTHER, SELFPAY ==
--- NOTE | 2023-10-03 15:52 | A.OFFVIS_ITS ---
Vital Signs 10/03/23 16:46 Pulse 92 Pulse Source Pulse Oximeter Temp 99.2 F Temp Source Oral Pulse Oximetry (%) 99 Oxygen Delivery Method Room Air Intake Visit Reasons: [facility] lab follow up Livestock Yard Supervisor Required: Yes Livestock Yard Supervisor Services: Livestock Yard Supervisor Present Livestock Yard Supervisor Name: Yessi Rincon CMA Information Interpreted: clinical only Allergies No Known Allergies Allergy (Verified 10/04/23 13:23) HPI HPI [facility] lab follow up: Details: He has not made followup appointment. He was supposed to. He has no complaints. [facility] called to make appointment. [facility] Medical History Amputation of left great toe Osteomyelitis Anxiety HTN (hypertension) Type 2 diabetes mellitus Social History Household Members: None Housing: House Do you presently have visiting nurse or other home services: No Alcohol intake: never Patient Tobacco Use Status: Never used Tobacco Advance Directives Date on File: 09/05/23 service: No Review of Systems Const All systems reviewed & are unremarkable except as noted in HPI and below Physical Exam Vital Signs: Last Vital Signs Temp 99.2 F 10/03/23 16:46 Pulse 92 10/03/23 16:46 Pulse Ox 99 10/03/23 16:46 Oxygen Delivery Method Room Air 10/03/23 16:46 Const General: cooperative Orientation/consciousness: patient oriented x3 HEENT Head: Yes normal to inspection Mouth: Normal oral and palatal mucosa present Eyes General: appearance normal, both eyes and all related structures Pupils: Equal, round and reactive pupils present Resp Effort & Inspection: normal respiratory effort Cardio Rate: regular rate Rhythm: regular rhythm GI Palpation (GI): Soft to palpation and nontender General: Yes no CVA tenderness Back/Spine/Pelvis Back: no CVA tenderness Skin General skin exam: no rashes or lesions noted Neuro General: patient oriented x3 Cranial nerves: Yes CN's II-XII intact bilaterally and Yes Equal, round and reactive pupils present Extrem General: Yes normal to inspection Psych Appearance: grossly normal Assessment & Plan Assessment & Plan (1) Diabetic foot ulcer: Comment: He has no complaints at this time Code(s): E11.621 - Type 2 diabetes mellitus with foot ulcer; L97.509 - Non-pressure chronic ulcer of other part of unspecified foot with unspecified severity Category: Medical Plan: Continue follow up if needed. No current issues Orders: Orders IR cvc remove any age 0810/06/23 E11.621 - Type 2 diabetes mellitus with foot ulcer, L97.509 - Non-pressure chronic ulcer of other part of unspecified foot with unspecified severity Coding Level of Care Code Est Pt Level 3 (08229) Diagnoses Diabetic foot ulcer E11.621; L97.509
[2023-10-03 16:46] VITALS: PULSE 92; TEMP 37.3; O2SAT 99
== END 2023-10-03 16:47 | disposition home or self-care (01) ==
LOC: HO.HID 15:51
PROVIDERS: PCP Registered Nurse; Visit Provider Internal Medicine
DX: E11.621 Type 2 diabetes mellitus with foot ulcer (principal); L97.509 Non-pressure chronic ulcer of other part of unspecified foot with unspecified severity
CPT/HCPCS: 99213

== ENCOUNTER → 2023-10-03 15:51 | Outpatient (BNVA) | payer MEDICAID, SELFPAY | PROVIDERS: PCP Registered Nurse; Visit Provider Internal Medicine | DX: E11.621 Type 2 diabetes mellitus with foot ulcer (principal); L97.509 Non-pressure chronic ulcer of other part of unspecified foot with unspecified severity; Z89.412 Acquired absence of left great toe | CPT/HCPCS: 99212 ==

== ENCOUNTER 2023-10-04 13:11 | Outpatient (AMB) | payer OTHER, SELFPAY ==
--- NOTE | 2023-10-04 13:13 | A.OFFVIS_ITS ---
Intake Visit Reasons: 3w follow up for toe amp Intake Note: Patient presents for 3 week follow up toe amp. Patient states he is doing well. Last dressing change was on TuesdayOctober 02. Upon removing dressing there is some yellow drainage. He states it has not been bleeding or painful. Accompanied by: Family/Other Allergies No Known Allergies Allergy (Verified 10/04/23 13:23) HPI HPI 3w follow up for toe amp: Details: Doing extremely well status post great toe amp. This had been done 07/01/2023. He has a PICC line. Been receiving ertapenem and vancomycin. Appears to be doing relatively well. Now presents for routine follow-up. [facility] Medical History Amputation of left great toe Osteomyelitis Anxiety HTN (hypertension) Type 2 diabetes mellitus Social History Household Members: None Housing: House Do you presently have visiting nurse or other home services: No Alcohol intake: never Patient Tobacco Use Status: Never used Tobacco Advance Directives Date on File: 09/05/23 service: No Review of Systems Const All systems reviewed & are unremarkable except as noted in HPI and below Reports no additional complaints ENT Reports Normal hearing present Card Denies chest pain, Denies chest pain at rest, Denies chest pain with activity and Denies pedal edema Resp Denies cough GI Denies abdominal pain Musc Denies abnormal gait, Denies muscle cramps and Denies radiating pain into limb Skin/Breast Denies skin ulcer and Denies wounds Neuro Reports Normal hearing present and Denies abnormal gait Psych Reports no additional complaints Physical Exam Const General: cooperative, healthy appearing and comfortable Orientation/consciousness: oriented to person, oriented to place and oriented to time HEENT Head: Yes normal to inspection Neck Neck: Yes normal visual inspection Carotids: no bruits Chest Chest palpation & inspection: normal inspection of the chest Resp Effort & Inspection: normal respiratory effort and able to speak in complete sentences Auscultation: clear to auscultation bilaterally, no crackles, no rales, no rhonchi and no wheezes Cardio Rate: regular rate Rhythm: regular rhythm Heart sounds: S1 normal heart sound present and S2 normal heart sound present Bruits: no carotid bruits Peripheral pulses: Peripheral pulses 2+ throughout GI Inspection: Yes normal to inspection Skin Other: Left great toe amp site measures 1.5 x 1.5 x 0.2 cm. Left 2nd toe appears to be healing well. Wounds: no wounds Hair: normal Neuro General: oriented to person, oriented to place and oriented to time Cranial nerves: Yes CN's II-XII intact bilaterally and Yes Normal hearing present Cognition (Neuro): normal cognition Motor exam (neuro): 5/5 motor strength present throughout Extrem Other: venous exam: No significant superficial varicosities or spider telangiectasia s, minimal edema General: No clubbing, No cyanosis and No edema Psych Appearance: grossly normal Mental Status: mental status grossly normal Speech and movement: Normal speech and movement present Assessment & Plan Assessment & Plan (1) Diabetic foot ulcer: Code(s): E11.621 - Type 2 diabetes mellitus with foot ulcer; L97.509 - Non-pressure chronic ulcer of other part of unspecified foot with unspecified severity Category: Medical Qualifiers: Diabetic foot ulcer location: toe Diabetes mellitus type: type 2 Laterality: left Non-pressure ulcer stage: with necrosis of muscle Qualified Code(s): E11.621 - Type 2 diabetes mellitus with foot ulcer; L97.523 - Non- pressure chronic ulcer of other part of left foot with necrosis of muscle Plan: In short patient has nonhealing toe amputation site. Would continue with local wound care. Will start with Silvadene dressings. Will also try to get VNA to try to assist with this. Thank you for allowing us to assist in his care. Medications: New silver sulfadiazine 1% (Silvadene) apply a 1.5 mm thickness 1 appl topical DAILY 20 grams 0RF E11.621 - Type 2 diabetes mellitus with foot ulcer, L97.523 - Non-pressure chronic ulcer of other part of left foot with necrosis of muscle Coding Level of Care Code Est Pt Level 4 (61373) Diagnoses Diabetic ulcer of toe of left foot associated with type 2 diabetes mellitus, with necrosis of muscle E11.621; L97.523 Diabetic foot ulcer location: toe Diabetes mellitus type: type 2 Laterality: left Non-pressure ulcer stage: with necrosis of muscle
== END 2023-10-04 13:48 | disposition home or self-care (01) ==
PROVIDERS: PCP Registered Nurse; Visit Provider Surgery Vascular Surgery
DX: E11.621 Type 2 diabetes mellitus with foot ulcer (principal); L97.523 Non-pressure chronic ulcer of other part of left foot with necrosis of muscle
CPT/HCPCS: 99214

== ENCOUNTER → 2023-10-04 13:11 | Outpatient (BNVA) | payer MEDICAID, SELFPAY | PROVIDERS: PCP Registered Nurse; Visit Provider Surgery Vascular Surgery | DX: E11.621 Type 2 diabetes mellitus with foot ulcer (principal); L97.523 Non-pressure chronic ulcer of other part of left foot with necrosis of muscle | CPT/HCPCS: 99212 ==

== ENCOUNTER 2023-10-06 10:19 | Outpatient (REF) | payer MEDICAID, SELFPAY | END 2023-10-06 10:20 | disposition home or self-care (01) | LOC: HO.RADIR 10:19 | PROVIDERS: PCP Registered Nurse; Visit Provider Internal Medicine | DX: Z13.89 Encounter for screening for other disorder (principal) ==